=== PATIENT | male | born 1950 | race Caucasian/White ===

== ENCOUNTER → 2016-10-05 | Outpatient (CLI) | payer MEDICARE, OTHER ==
--- NOTE | 2016-10-05 10:39 | CT ---
EXAMINATION TYPE: CT chest w con DATE OF EXAM: 10/05/2016 10:13 AM COMPARISON: NONE HISTORY: Patient having some shortness of breath CT DLP: 153.4 mGycm Automated exposure control for dose reduction was used. CONTRAST: CT scan of the chest is performed with IV Contrast, patient injected with 100 mL of Omnipaque 300. FINDINGS: LUNGS: The lungs are grossly clear, there is no concerning parenchymal mass or nodule identified. T here is no pleural effusion or pneumothorax seen. The tracheobronchial tree is patent. Central bronc hiectatic changes are present. There are increased lung volumes. No endobronchial lesion, pleural or pericardial effusion. MEDIASTINUM: There are no greater than 1 cm hilar or mediastinal lymph nodes. There are coronary mitzy ry calcifications. AORTA: No additional significant abnormality is seen. OTHER: The liver shows low attenuation possibly due to fatty infiltration, small cystic focus at the dome measures less than 1 cm. There is calcification seen in the central right kidney which may be v ascular. There is a cortical cyst in the left mid kidney measuring 2 cm. IMPRESSION: Correlate for COPD. Central bronchiectasis. Coronary artery disease.
== END ==
LOC: RADCTMAIN 09:04
PROVIDERS: ATTEND Family Medicine
DX: J44.9 Chronic obstructive pulmonary disease, unspecified (principal); J47.9 Bronchiectasis, uncomplicated; I25.10 Atherosclerotic heart disease of native coronary artery without angina pectoris
CPT/HCPCS: 71260; Q9967

== ENCOUNTER → 2016-11-01 | Outpatient (CLI) | payer MEDICARE, OTHER ==
[~2016-11-01] MED LIST: REGADENOSON 0.4 MG/5 ML SYRINGE IV ONE
--- NOTE | 2016-11-01 10:56 | EST ---
DATE OF SERVICE: 11/01/2016 AGE: 66Y SEX: M HT: 5'8" WT: lbs. Protocol Karlos: Other: Stage: Dur. of Exercise: *Heart Rate Blood Pressure *Rest: 90 Rest: 138/59 * *Max. Achieved: 111 Maximum BP: 138/60 85% PMHR: 130 100% PMHR: 153 *METS: INDICATIONS: Coronary artery disease. Chest pain. History of hypertension, hypercholesterolemia, history of smoking 1 1/2 pack of cigarettes a day MEDICATIONS: See list. ( ) sinus rhythm, rate of 90 beats per minute. AL interval 0.16, 0.10. Frequent PVCs are noted, poor R wave progression in anteroseptal leads. Utilizing a standard Lexiscan protocol, Lexiscan was given IV push followed by serial EKGs without any chest or pressure or ST segment deviations indicative of ischemia are noted in any of the monitoring 12 leads. IMPRESSION: 1. Baseline rhythm is sinus with frequent PVCs are noted. Poor R wave progression in anteroseptal leads. 2. Negative Lexiscan Cardiolite study. 3. Nuclear scintigrams to follow from radiology department.
--- NOTE | 2016-11-01 12:04 | NM ---
EXAMINATION TYPE: NM stress lexiscan cardiolite DATE OF EXAM: 11/01/2016 10:44 AM COMPARISON: NONE HISTORY: 66 year-old male history of coronary artery disease TECHNIQUE: After the intravenous administration of 10.9 mCi Tc 99m Sestamibi - Cardiolite resting SP ECT images acquired 45 minutes post injection. The patient received 0.4mg Lexiscan, 26.6 mCi Tc 99m Sestamibi - Stress images obtained [address] injection FINDINGS: Review of stress and rest SPECT images demonstrates no distinct perfusion abnormality. There is some prominent adjacent inferior wall GI activity. Gated analysis shows normal wall motion with an estimat ed left ventricular ejection fraction of 58 %. Ejection fraction at rest is low at 39%. TID is calcul ated at 0.84, within normal limits. IMPRESSION: 1. No scintigraphic evidence for reversible ischemia. 2. Note low LVEF of 39% at rest. LVEF on stress is 58%.
== END | disposition home or self-care (01) ==
LOC: RADNMMAIN 10-27 07:50
PROVIDERS: ATTEND Family Medicine
DX: I25.10 Atherosclerotic heart disease of native coronary artery without angina pectoris (principal)
CPT/HCPCS: 93017; 78452; A9500; J2785

== ENCOUNTER → 2016-11-24 | Outpatient (CLI) | payer MEDICARE, OTHER ==
--- NOTE | 2016-11-24 08:43 | US ---
EXAMINATION TYPE: [place] medicare screen for AAA DATE OF EXAM: 11/24/2016 7:54 AM COMPARISON: NONE CLINICAL HISTORY: I25.10 coronary artery disease. HTN, smoker, no hx of AAA EXAM MEASUREMENTS: Abdominal Aorta: Proximal: 1.7 x 2.2 cm Mid: 1.2 x 1.5 cm Distal: 1.2 x 1.5 cm Bifurcation: Right - 0.7 x 1.0 cm Left- 0.4 x 1.0 cm No AAA seen. IMPRESSION: 1. No diagnostic evidence of aneurysm
== END | disposition home or self-care (01) ==
LOC: RADUSWWP 07:18
PROVIDERS: ATTEND Family Medicine
DX: I25.10 Atherosclerotic heart disease of native coronary artery without angina pectoris (principal)
CPT/HCPCS: 76706; 93979

== ENCOUNTER → 2019-03-13 | Outpatient (CLI) | payer MEDICARE, OTHER ==
--- NOTE | 2019-03-14 09:20 | P.ARTDOP ---
Arterial Doppler LOWER EXTREMITY ARTERIAL DOPPLER: DATE OF SERVICE: 03/13/2019 Reason for study: Bilateral foot pain. Doppler waveforms: Multiphasic bilaterally throughout. Pulse volume recording: []. Pressure gradients: None significant. Ankle-brachial indices: 0.97 on the right and 0.99 on the left. Toe pressures: [] on the right, [] on the left Impression: Normal study.
== END | disposition home or self-care (01) ==
LOC: RADUSWWP 09:11
PROVIDERS: ATTEND Family Medicine
DX: I73.9 Peripheral vascular disease, unspecified (principal); Z98.890 Other specified postprocedural states
CPT/HCPCS: 93922

== ENCOUNTER 2019-08-23 08:12 | Day surgery (SDC) | payer MEDICARE, OTHER ==
[2019-08-20 15:20] VITALS: BMI 19.8
[~2019-08-23 08:12] MED LIST changes: +LACTATED RINGERS 1,000 ML IV SCH; +LIDOCAINE 1% 20 ML VIAL (10MG/ML) FOR IV START INTRADERMA PRN; -REGADENOSON 0.4 MG/5 ML SYRINGE IV ONE
[2019-08-23 08:39] VITALS: TEMP 98.5
[2019-08-23] MEDS ORDERED: LIDOCAINE 1% INJ 10MG/ML (20 ML MDV) ONE (09:32)
[2019-08-23] MEDS ORDERED: PROPOFOL 10 MG/ML 20 ML VIAL IV ONE (09:32)
--- NOTE | 2019-08-23 09:35 | P.GSHP ---
History of Present Illness H&P Date: 08/23/19 Chief Complaint: Anemia This a 68-year-old male who presents today for EGD and colonoscopy. Patient has had issues anemia. He denies any obvious GI bleed. Past Medical History Past Medical History: Hyperlipidemia, Hypertension History of Any Multi-Drug Resistant Organisms: None Reported Past Surgical History: No Surgical Hx Reported Additional Past Surgical History / Comment(s): colonoscopy Past Anesthesia/Blood Transfusion Reactions: No Reported Reaction Smoking Status: Current every day smoker - Past Family History Mother Family Medical History: No Reported History Medications and Allergies Home Medications Medication Instructions Recorded Confirmed Type Ferrous Sulfate [Feosol] 325 mg PO DAILY 04/01/16 08/23/19 History Hydrochlorothiazide [Hydrodiuril] 25 mg PO DAILY 08/20/19 08/23/19 History Simvastatin [Zocor] 20 mg PO DAILY 08/20/19 08/23/19 History Allergies Allergy/AdvReac Type Severity Reaction Status Date / Time No Known Allergies Allergy Verified 08/23/19 08:25 Surgical - Exam Vital Signs Temp Pulse Resp BP Pulse Ox 98.5 F 62 16 156/79 96 08/23/19 08:38 08/23/19 08:38 08/23/19 08:38 08/23/19 08:38 08/23/19 08:38 - General well developed, well nourished, no distress - Eyes PERRL - ENT normal pinna - Neck no masses - Respiratory normal expansion - Cardiovascular Rhythm: regular - Abdomen Abdomen: soft, non tender Assessment and Plan Assessment: Anemia. We will perform EGD and colonoscopy.
--- NOTE | 2019-08-23 09:52 | P.OP ---
Date of Procedure: 08/23/19 Preoperative Diagnosis: Anemia Postoperative Diagnosis: Antral gastritis Mild esophagitis Procedure(s) Performed: EGD Colonoscopy Anesthesia: MAC Surgeon: Francis Mcghee Pathology: other (Antrum, esophagus) Condition: stable Disposition: PACU Description of Procedure: The patient's placed on the endoscopy table lateral position. He received IV sedation. The gastroscope placed oropharynx and passed in the esophagus into the stomach. Scope was then placed through the pylorus. The first and second portion duodenum appeared normal. Scope was then brought back the antrum and this was moderately inflamed. A biopsies performed. Scope was unretroflexed and remainder stomach appeared normal. There is no significant hiatal hernia. The GE junction was at 47 is. The distal esophagus appeared mildly inflamed a biopsies performed. The proximal esophagus appeared normal. The scope was then withdrawn from patient. Next digital rectal exam was performed. The prostate was symmetrical without nodules. The flexible colonoscope was then placed patient anus and passed rotator entire colon. The ileocecal valve was visually is. The cecum, ascending and transverse colon appeared normal. The descending and sigmoid colon appeared normal. Scope was then brought back the rectum and this appeared normal. Scope was withdrawn for patient. There is no evidence of any active bleeding. He was present in the patient's anemia was due to his gastritis.
[2019-08-23 10:15] VITALS: BP 151/76; PULSE 85; RESP 20
== END 2019-08-23 10:41 | disposition home or self-care (01) ==
LOC: ORWHC2ENDO 08:12
PROVIDERS: ATTEND Surgery
DX: K20.9 Esophagitis, unspecified (principal); K29.50 Unspecified chronic gastritis without bleeding; D64.9 Anemia, unspecified; E78.5 Hyperlipidemia, unspecified; I10 Essential (primary) hypertension; F17.200 Nicotine dependence, unspecified, uncomplicated; Z97.2 Presence of dental prosthetic device (complete) (partial); Z79.899 Other long term (current) drug therapy
CPT/HCPCS: 88305; 45378; 43239; J2001; J2704

== ENCOUNTER 2020-03-06 11:13 | Inpatient (IN) | payer MEDICARE, OTHER ==
--- NOTE | 2020-03-06 11:19 | ED ---
General Adult HPI - General Stated complaint: lt leg pain Time Seen by Provider: 03/06/20 11:15 Source: patient, EMS, RN notes reviewed Mode of arrival: EMS Limitations: no limitations - History of Present Illness Initial comments: This a 69-year-old male presents emergency department via EMS chief complaints severe left groin pain. Patient states that the pain has been ongoing but has increased last 1-2 days. Patient was seen by PCP yesterday. Patient states she has some mild abdominal pain. Patient denies any fevers or chills. Patient has known vascular disease. Patient also states that he does drink alcohol on a regular basis and is a heavy smoker. Patient denies any blood thinners. Patient's PCP did call stating that he had some liver function abnormality's. Patient has no history of this. - Related Data Home Medications Medication Instructions Recorded Confirmed Ferrous Sulfate [Feosol] 325 mg PO DAILY 04/01/16 03/06/20 Simvastatin [Zocor] 20 mg PO DAILY 08/20/19 03/06/20 Gabapentin [Neurontin] 800 mg PO TID 03/06/20 03/06/20 amLODIPine [Norvasc] 10 mg PO DAILY 03/06/20 03/06/20 Allergies Allergy/AdvReac Type Severity Reaction Status Date / Time No Known Allergies Allergy Verified 03/06/20 12:49 Review of Systems ROS Statement: Those systems with pertinent positive or pertinent negative responses have been documented in the HPI. ROS Other: All systems not noted in ROS Statement are negative. Past Medical History Past Medical History: Hyperlipidemia, Hypertension History of Any Multi-Drug Resistant Organisms: None Reported Past Surgical History: No Surgical Hx Reported Additional Past Surgical History / Comment(s): colonoscopy Past Anesthesia/Blood Transfusion Reactions: No Reported Reaction Past Psychological History: No Psychological Hx Reported Past Alcohol Use History: Daily Additional Past Alcohol Use History / Comment(s): smoker for 50 years 1ppd. 2 beers a day Past Drug Use History: None Reported - Past Family History Mother Family Medical History: No Reported History General Exam General appearance: alert, in distress Head exam: Present: atraumatic, normocephalic, normal inspection Eye exam: Present: normal appearance, PERRL, EOMI. Absent: scleral icterus, conjunctival injection, periorbital swelling Respiratory exam: Present: wheezes, decreased breath sounds. Absent: normal lung sounds bilaterally, respiratory distress, rales, rhonchi, stridor Cardiovascular Exam: Present: normal rhythm, tachycardia, normal heart sounds. Absent: systolic murmur, diastolic murmur, rubs, gallop, clicks GI/Abdominal exam: Present: soft, tenderness (Mild), normal bowel sounds. Absent: distended, guarding, rebound, rigid Extremities exam: Present: other (No palpable pulse at left popliteal, left posterior tibialis, left dorsal PE hours, left leg is cool compared to right) Neurological exam: Present: alert, oriented X3 Skin exam: Present: other (Discoloration noted to the left lower extremity) Course Vital Signs 03/06/20 03/06/20 03/06/20 11:17 11:58 12:15 Temperature 96.9 F L Pulse Rate 125 H 117 H 116 H Respiratory 24 22 20 Rate Blood Pressure 141/80 147/59 147/79 O2 Sat by Pulse 100 100 98 Oximetry - Reevaluation(s) Reevaluation #1: 03/06/20 13:01 Vascular was contacted after initial exam, patient was evaluated in the emergency department by vascular nurse practitioner Gilberto. Patient will be admitted for angiogram as patient has poor kidney function now allowing for CT. They did recommend NORBERTO ultrasound. This was ordered. Medical Decision Making - Medical Decision Making 69-year-old male presented for left leg pain. Patient's found to be in acute renal failure, acute liver failure with a left lower extremity arterial occlusion. Patient will be admitted for vascular surgery, patient meds ICU case discussed with furnace room supervisor. Patient does have metabolic acidosis related to dehydration, arterial occlusion, acute renal failure. Patient was given IV fluids. - Lab Data Result diagrams: 03/06/20 11:38 03/06/20 11:38 Lab Results 03/06/20 03/06/20 03/06/20 Range/Units 11:38 11:38 11:38 WBC 9.9 (3.8-10.6) k/uL RBC 4.77 (4.30-5.90) m/uL Hgb 16.4 (13.0-17.5) gm/dL Hct 53.5 H (39.0-53.0) % MCV 112.2 H (80.0-100.0) fL MCH 34.3 (25.0-35.0) pg MCHC 30.6 L (31.0-37.0) g/dL RDW 14.1 (11.5-15.5) % Hypochromasia Marked Macrocytosis Marked A PT 47.2 H (9.0-12.0) sec INR 4.7 H (<1.2) APTT 32.3 H (22.0-30.0) sec Sodium 131 L (137-145) mmol/L Potassium 4.9 (3.5-5.1) mmol/L Chloride 89 L (98-107) mmol/L Carbon Dioxide 9 L* (22-30) mmol/L Anion Gap 33 mmol/L BUN 16 (9-20) mg/dL Creatinine 2.21 H (0.66-1.25) mg/dL Est GFR (CKD-EPI)AfAm 34 (>60 ml/min/1.73 sqM) Est GFR (CKD-EPI)NonAf 29 (>60 ml/min/1.73 sqM) Plasma Lactic Acid Loco (0.7-2.0) mmol/L Calcium 9.1 (8.4-10.2) mg/dL Magnesium 2.6 H (1.6-2.3) mg/dL Total Bilirubin 7.4 H (0.2-1.3) mg/dL Alkaline Phosphatase 126 (38-126) U/L Creatine Kinase 365 H (55-170) U/L Troponin I (0.000-0.034) ng/mL Total Protein 7.9 (6.3-8.2) g/dL Albumin 4.6 (3.5-5.0) g/dL Amylase 195 H (30-110) U/L Lipase 1213 H (23-300) U/L Blood Type Blood Type Recheck Bld Type Recheck Status Antibody Screen Spec Expiration Date 03/06/20 03/06/20 03/06/20 Range/Units 11:38 11:38 11:38 WBC (3.8-10.6) k/uL RBC (4.30-5.90) m/uL Hgb (13.0-17.5) gm/dL Hct (39.0-53.0) % MCV (80.0-100.0) fL MCH (25.0-35.0) pg MCHC (31.0-37.0) g/dL RDW (11.5-15.5) % Hypochromasia Macrocytosis PT (9.0-12.0) sec INR (<1.2) APTT (22.0-30.0) sec Sodium (137-145) mmol/L Potassium (3.5-5.1) mmol/L Chloride (98-107) mmol/L Carbon Dioxide (22-30) mmol/L Anion Gap mmol/L BUN (9-20) mg/dL Creatinine (0.66-1.25) mg/dL Est GFR (CKD-EPI)AfAm (>60 ml/min/1.73 sqM) Est GFR (CKD-EPI)NonAf (>60 ml/min/1.73 sqM) Plasma Lactic Acid Loco 15.3 H* (0.7-2.0) mmol/L Calcium (8.4-10.2) mg/dL Magnesium (1.6-2.3) mg/dL Total Bilirubin (0.2-1.3) mg/dL Alkaline Phosphatase (38-126) U/L Creatine Kinase (55-170) U/L Troponin I 0.022 (0.000-0.034) ng/mL Total Protein (6.3-8.2) g/dL Albumin (3.5-5.0) g/dL Amylase (30-110) U/L Lipase (23-300) U/L Blood Type O Positive Blood Type Recheck No Previous Record Bld Type Recheck Status CABO Indicated Antibody Screen NEGATIVE Spec Expiration Date 03/09/2020 - 2337 Critical Care Time Critical Care Time: Yes Total Critical Care Time: 35 Critical Care Time: Total 35 minutes of critical care time were used initially evaluated patient, reviewed past medical history, review old imaging patient found to have left arterial occlusion in which patient's case discussed with vascular. Patient be taken for angiogram and possible procedure. Patient also found to have acute liver failure and acute renal failure consults to [facility]. She was started on heparin by vascular. Patient does have acute pancreatitis related to his alcohol abuse. Patient is hydrated well, started on CIWA protocol, Ativan protocol. Patient's case discussed with Dr. Mazariegos, Dr. Mills Disposition Clinical Impression: Arterial occlusion, lower extremity, Acute liver failure, Metabolic acidosis, Acute renal failure, Acute pancreatitis Disposition: ADMITTED IP TO THIS HOSP Condition: Serious Referrals: Mani Fitch MD [Primary Care Provider] - 1-2 days
[2020-03-06] MEDS ORDERED: MORPHINE SULFATE 4 MG/ML SYRINGE IV STA (11:31)
[2020-03-06] MEDS ORDERED: SODIUM CHLORIDE 0.9% 1,000 ML IV STA (11:31)
[2020-03-06] MEDS ORDERED: ONDANSETRON 4 MG/2 ML VIAL IVP STA (11:32)
[2020-03-06] MEDS ORDERED: LORazepam 2 MG/ML INJ IV STA (11:40)
[2020-03-06] MEDS ORDERED: SODIUM CHLORIDE 0.9% 1,000 ML IV ONE (11:41)
[2020-03-06 12:14] LABS: INR 4.7 (<1.2); Partial Thromboplastin Time 32.3 sec (22.0-30.0); Prothrombin Time 47.2 sec (9.0-12.0)
[2020-03-06 12:22] LABS: African American GFR (CKD) 34 (>60 ml/min/1.73 sqM); Albumin 4.6 g/dL (3.5-5.0); Alkaline Phosphatase 126 U/L (38-126); Amylase 195 U/L (30-110); Blood Urea Nitrogen 16 mg/dL (9-20); Calcium 9.1 mg/dL (8.4-10.2); Chloride 89 mmol/L (98-107); Creatine Kinase 365 U/L (55-170); Magnesium 2.6 mg/dL (1.6-2.3); Non-African American GFR(CKD) 29 (>60 ml/min/1.73 sqM); Sodium 131 mmol/L (137-145); Total Bilirubin 7.4 mg/dL (0.2-1.3); Total Protein 7.9 g/dL (6.3-8.2)
[2020-03-06 12:27] LABS: Anion Gap 33 mmol/L
[2020-03-06 12:28] LABS: Carbon Dioxide 9 mmol/L (22-30)
[2020-03-06 12:29] LABS: Potassium 4.9 mmol/L (3.5-5.1)
[2020-03-06 12:34] LABS: HCT 53.5 % (39.0-53.0); HGB 16.4 gm/dL (13.0-17.5); Hypochromasia Marked; MCH 34.3 pg (25.0-35.0); MCHC 30.6 g/dL (31.0-37.0); MCV 112.2 fL (80.0-100.0); Macrocytosis Marked; Mean Platelet Volume 11.4; RBC 4.77 m/uL (4.30-5.90); RDW 14.1 % (11.5-15.5); WBC 9.9 k/uL (3.8-10.6)
[2020-03-06] MEDS ORDERED: HEPARIN SODIUM,PORCINE 10,000 UNIT/ML 1 ML VIAL IV ONE (12:37)
[2020-03-06] MEDS ORDERED: HEPARIN SODIUM,PORCINE 5,000 UNIT/ML 1 ML VIAL IV PRN (12:37)
[2020-03-06] MEDS ORDERED: ONDANSETRON 4 MG/2 ML VIAL IVP PRN (12:40)
[2020-03-06] MEDS ORDERED: MORPHINE SULFATE 4 MG/ML SYRINGE IV PRN (12:40)
[2020-03-06] MEDS ORDERED: NALOXONE 0.4 MG/ML 1 ML VIAL IV PRN (12:40)
[2020-03-06] MEDS ORDERED: LORazepam 2 MG/ML INJ IV PRN ×3 (12:43)
[2020-03-06] MEDS ORDERED: HEPARIN SOD,PORK IN 0.45% NACL 25,000 UNIT in 0.45% NACL 1 250ML.BAG IV SCH (12:45)
[2020-03-06] MEDS: SODIUM CHLORIDE 0.9% 1,000 ML IV SCH ×2 (12:56→21:59)
[2020-03-06 13:14] LABS: Appearance,Urine Cloudy (Clear); Bacteria,Urine Rare /hpf; Bilirubin,Urine 1+ (Negative); Blood,Urine Moderate (Negative); Cellular Casts,Urine 8 /lpf (0); Color,Urine Dark Brown; Glucose,Urine (UA) Negative (Negative); Hyaline Casts,Urine 17 /lpf (0-2); Ketones,Urine Trace (Negative); Leukocyte Esterase,Urine Negative (Negative); Mucus,Urine Rare /hpf; Nitrite,Urine Negative (Negative); PH, Urine 5.5 (5.0-8.0); Protein,Urine 2+ (Negative); RBC,Urine 2 /hpf (0-5); Specific Gravity,Urine 1.015 (1.001-1.035); Squamous Epithelial Cell,Urine 2 /hpf (0-4); Urobilinogen,Urine <2.0 mg/dL (<2.0); WBC,Urine 36 /hpf (0-5)
[2020-03-06 13:16] LABS: Band Neutrophils % 1 %; Myelocytes % 1 %; Neutrophils % (M) 92 %; Nucleated Red Blood Cells 0 /100 WBC (0-0); Total Cells Counted 200
[2020-03-06 13:17] LABS: Platelet Count 69 k/uL (150-450); Toxic Granulation Present
[2020-03-06] MEDS ORDERED: DEXTROSE 50% SYRINGE 50 ML IVP STA (13:22)
[2020-03-06 13:25] LABS: AST >15000 U/L (17-59)
[2020-03-06 13:26] LABS: ALT 6746 U/L (4-49)
[2020-03-06 13:43] LABS: Glucose,Whole Blood 126 mg/dL (75-99)
[2020-03-06 14:06] LABS: Glucose 42 mg/dL (74-99)
--- NOTE | 2020-03-06 15:26 | P.GSCN ---
History of Present Illness Consult date: 03/06/20 Reason for Consult: Lateral lower extremity pain, cold left lower extremity History of present illness: This is a 69-year-old male with a history of hyperlipidemia, hypertension, alcohol abuse who states he drinks a 30 pack a week and has been drinking for greater than 30 years, and is a pack-a-day smoker for greater than 50 years. The patient states he has been having bilateral lower extremity pain for at least the last year, however starting today he had worse pain in the left lower extremity. States that he saw Dr. Fitch in the office yesterday. In February 2019 he had a arterial study of the bilateral lower extremity showing moderate left fem-pop disease with possible iliac component. The patient denies any shortness of breath or chest pain. He is able to ambulate, however does have pain with ambulation. He also has multiple scratches and scabbing on bilateral lower extremities left greater than right. Patient's friend at the bedside states that he itches his legs a lot, which causes the scabbing. The patient is alert and answers his questions appropriately, he is able to follow commands, states he knows he is at [facility], states his birthday and name, however was confused on the current year when asked. Admission labs show WBC 9.9, hemoglobin 16.4, hematocrit 53.5, platelets 69,000 PT 47.2, INR 4.7, sodium 131, potassium 4.9, chloride 89, carbon dioxide 9, BUNs 16, creatinine 2.21, glucose 42, plasma lactic acid 15.3 magnesium 2.6, total bili 7.4, alk phos 126, AST greater than 15,000, ALTs 6746, ammonia 47, creatinine kidneys 365, amylase 195, lipase 1213. Review of Systems A 14 point review of system was completed all pertinent positives and negatives as stated in the HPI. Past Medical History Past Medical History: GERD/Reflux, Hyperlipidemia, Hypertension Additional Past Medical History / Comment(s): Bilateral leg pain/especially L leg for years, anemia History of Any Multi-Drug Resistant Organisms: None Reported Past Surgical History: No Surgical Hx Reported Additional Past Surgical History / Comment(s): EGD, colonoscopy, bilateral cataract removals. Past Anesthesia/Blood Transfusion Reactions: No Reported Reaction Smoking Status: Current every day smoker - Past Family History Mother Family Medical History: No Reported History Additional Family Medical History / Comment(s): Mother was healthy and lived to almost 90yrs of age. She has 16 children. Father Additional Family Medical History / Comment(s): Father had "heart" problems and lived to be 80. Medications and Allergies Home Medications Medication Instructions Recorded Confirmed Type Ferrous Sulfate [Feosol] 325 mg PO DAILY 04/01/16 03/06/20 History Simvastatin [Zocor] 20 mg PO DAILY 08/20/19 03/06/20 History Gabapentin [Neurontin] 800 mg PO TID 03/06/20 03/06/20 History amLODIPine [Norvasc] 10 mg PO DAILY 03/06/20 03/06/20 History Allergies Allergy/AdvReac Type Severity Reaction Status Date / Time No Known Allergies Allergy Verified 03/06/20 12:49 Surgical - Exam Vital Signs Temp Pulse Resp BP Pulse Ox 96.9 F L 125 H 24 141/80 100 03/06/20 11:17 03/06/20 11:17 03/06/20 11:17 03/06/20 11:17 03/06/20 11:17 General appearance: The patient is alert, oriented, in no acute distress. HET: Head is normocephalic and atraumatic. Pupils are equal and reactive. Oropharynx is clear without lesions. Neck: Supple without lymphadenopathy. Trachea midline. Heart: S1 S2. Regular rate and rhythm, tachycardic HR in 120s. Lungs: No crackles or wheezes are heard. Patient is tachypnic. Abdomen: Soft, nontender, nondistended with bowel sounds. Extremities: Left lower extremity cold to touch, pale, with decreased capillary refill. Unable to palpate femoral, popliteal, PT, or DP. Left femoral with positive Doppler signal, left popliteal, PT, and DP unable to obtain Doppler signal. Multiple scratches scabs on left michelle. Right lower extremity warm to touch, good capillary refill, palpable femoral pulse. Right popliteal, PT and DP Doppler signal. Radial 2/4 bilaterally. Patient is unable to wiggle his left toes, minimally moves his left foot, however is able to pull up and bend at his knee. Neurological: No focal deficits. Results - Labs 03/06/20 11:38 03/06/20 11:38 Abnormal Lab Results - Last 24 Hours (Table) 03/06/20 03/06/20 03/06/20 Range/Units 11:38 11:38 11:38 Hct 53.5 H (39.0-53.0) % MCV 112.2 H (80.0-100.0) fL MCHC 30.6 L (31.0-37.0) g/dL Plt Count 69 L (150-450) k/uL Neutrophils # (Manual) 9.20 H (1.3-7.7) k/uL Lymphocytes # (Manual) 0.40 L (1.0-4.8) k/uL Myelocytes # (Manual) 0.10 H (0) k/uL Macrocytosis Marked A PT 47.2 H (9.0-12.0) sec INR 4.7 H (<1.2) APTT 32.3 H (22.0-30.0) sec Sodium (137-145) mmol/L Chloride (98-107) mmol/L Carbon Dioxide (22-30) mmol/L Creatinine (0.66-1.25) mg/dL Glucose (74-99) mg/dL POC Glucose (mg/dL) (75-99) mg/dL Plasma Lactic Acid Loco (0.7-2.0) mmol/L Magnesium (1.6-2.3) mg/dL Total Bilirubin (0.2-1.3) mg/dL AST (17-59) U/L ALT (4-49) U/L Ammonia (<30) umol/L Creatine Kinase (55-170) U/L Amylase (30-110) U/L Lipase (23-300) U/L Urine Protein 2+ H (Negative) Urine Ketones Trace H (Negative) Urine Blood Moderate H (Negative) Urine Bilirubin 1+ H (Negative) Urine WBC 36 H (0-5) /hpf Urine WBC Clumps Moderate H (None) /hpf Urine Bacteria Rare H (None) /hpf Hyaline Casts 17 H (0-2) /lpf Urine Mucus Rare H (None) /hpf 03/06/20 03/06/20 03/06/20 Range/Units 11:38 11:38 13:29 Hct (39.0-53.0) % MCV (80.0-100.0) fL MCHC (31.0-37.0) g/dL Plt Count (150-450) k/uL Neutrophils # (Manual) (1.3-7.7) k/uL Lymphocytes # (Manual) (1.0-4.8) k/uL Myelocytes # (Manual) (0) k/uL Macrocytosis PT (9.0-12.0) sec INR (<1.2) APTT (22.0-30.0) sec Sodium 131 L (137-145) mmol/L Chloride 89 L (98-107) mmol/L Carbon Dioxide 9 L* (22-30) mmol/L Creatinine 2.21 H (0.66-1.25) mg/dL Glucose 42 L* (74-99) mg/dL POC Glucose (mg/dL) (75-99) mg/dL Plasma Lactic Acid Loco 15.3 H* (0.7-2.0) mmol/L Magnesium 2.6 H (1.6-2.3) mg/dL Total Bilirubin 7.4 H (0.2-1.3) mg/dL AST >14410 H (17-59) U/L ALT 6746 H (4-49) U/L Ammonia 47 H (<30) umol/L Creatine Kinase 365 H (55-170) U/L Amylase 195 H (30-110) U/L Lipase 1213 H (23-300) U/L Urine Protein (Negative) Urine Ketones (Negative) Urine Blood (Negative) Urine Bilirubin (Negative) Urine WBC (0-5) /hpf Urine WBC Clumps (None) /hpf Urine Bacteria (None) /hpf Hyaline Casts (0-2) /lpf Urine Mucus (None) /hpf 03/06/20 Range/Units 13:41 Hct (39.0-53.0) % MCV (80.0-100.0) fL MCHC (31.0-37.0) g/dL Plt Count (150-450) k/uL Neutrophils # (Manual) (1.3-7.7) k/uL Lymphocytes # (Manual) (1.0-4.8) k/uL Myelocytes # (Manual) (0) k/uL Macrocytosis PT (9.0-12.0) sec INR (<1.2) APTT (22.0-30.0) sec Sodium (137-145) mmol/L Chloride (98-107) mmol/L Carbon Dioxide (22-30) mmol/L Creatinine (0.66-1.25) mg/dL Glucose (74-99) mg/dL POC Glucose (mg/dL) 126 H (75-99) mg/dL Plasma Lactic Acid Loco (0.7-2.0) mmol/L Magnesium (1.6-2.3) mg/dL Total Bilirubin (0.2-1.3) mg/dL AST (17-59) U/L ALT (4-49) U/L Ammonia (<30) umol/L Creatine Kinase (55-170) U/L Amylase (30-110) U/L Lipase (23-300) U/L Urine Protein (Negative) Urine Ketones (Negative) Urine Blood (Negative) Urine Bilirubin (Negative) Urine WBC (0-5) /hpf Urine WBC Clumps (None) /hpf Urine Bacteria (None) /hpf Hyaline Casts (0-2) /lpf Urine Mucus (None) /hpf Diabetes panel 03/06/20 Range/Units 11:38 Sodium 131 L (137-145) mmol/L Potassium 4.9 (3.5-5.1) mmol/L Chloride 89 L (98-107) mmol/L Carbon Dioxide 9 L* (22-30) mmol/L BUN 16 (9-20) mg/dL Creatinine 2.21 H (0.66-1.25) mg/dL Glucose 42 L* (74-99) mg/dL Calcium 9.1 (8.4-10.2) mg/dL AST >03493 H (17-59) U/L ALT 6746 H (4-49) U/L Alkaline Phosphatase 126 (38-126) U/L Total Protein 7.9 (6.3-8.2) g/dL Albumin 4.6 (3.5-5.0) g/dL Calcium panel 03/06/20 Range/Units 11:38 Calcium 9.1 (8.4-10.2) mg/dL Albumin 4.6 (3.5-5.0) g/dL Pituitary panel 03/06/20 Range/Units 11:38 Sodium 131 L (137-145) mmol/L Potassium 4.9 (3.5-5.1) mmol/L Chloride 89 L (98-107) mmol/L Carbon Dioxide 9 L* (22-30) mmol/L BUN 16 (9-20) mg/dL Creatinine 2.21 H (0.66-1.25) mg/dL Glucose 42 L* (74-99) mg/dL Calcium 9.1 (8.4-10.2) mg/dL Adrenal panel 03/06/20 Range/Units 11:38 Sodium 131 L (137-145) mmol/L Potassium 4.9 (3.5-5.1) mmol/L Chloride 89 L (98-107) mmol/L Carbon Dioxide 9 L* (22-30) mmol/L BUN 16 (9-20) mg/dL Creatinine 2.21 H (0.66-1.25) mg/dL Glucose 42 L* (74-99) mg/dL Calcium 9.1 (8.4-10.2) mg/dL Total Bilirubin 7.4 H (0.2-1.3) mg/dL AST >87013 H (17-59) U/L ALT 6746 H (4-49) U/L Alkaline Phosphatase 126 (38-126) U/L Total Protein 7.9 (6.3-8.2) g/dL Albumin 4.6 (3.5-5.0) g/dL Assessment and Plan Assessment: 1. Cold leg 2. Peripheral arterial disease 3. Metabolic acidosis 4. Hypertension 5. Hyperlipidemia 6. ETOH use 7. Tobacco abuse Plan: The patient was evaluated and discussed with Dr. Braga and Dr. Copeland. Patient is to be started on a heparin drip. Labs are reviewed, fresh frozen plasma 2 units was ordered. Patient is scheduled to go to the operating room for a left lower extremity open thrombectomy and intraoperative angiogram with possible fasciotomy. Recommend admission to the ICU. Further recommendations to follow. Thank you for this consultation allowing us to take part in the plan of care of your patient during his hospital stay. The above dictated assessment and findings were discussed with Dr. Copeland. The impression and plan of care have been directed as dictated.
[2020-03-06 16:01] LABS: Glucose,Whole Blood 126 mg/dL (75-99)
[2020-03-06] MEDS ORDERED: MIDAZOLAM 2 MG/2 ML VIAL ONE (16:08)
[2020-03-06] MEDS ORDERED: PROTAMINE SULFATE 10 MG/ML 5 ML VIAL IV ONE (16:08)
[2020-03-06] MEDS ORDERED: SUCCINYLCHOLINE CHLORIDE 100 MG/5 ML SYR IV ONE (16:08)
[2020-03-06] MEDS ORDERED: ALBUMIN HUMAN 5% (25gm) 500 ML VIAL IVPB ONE (16:08)
[2020-03-06] MEDS ORDERED: ROCURONIUM BROMIDE 10 MG/ML 5 ML VIAL IV ONE (16:08)
[2020-03-06] MEDS ORDERED: HEPARIN SODIUM,PORCINE 5,000 UNIT/ML 1 ML VIAL ONE (16:08)
[2020-03-06] MEDS ORDERED: fentaNYL (PF) 50 MCG/ML 2 ML AMP ONE (16:08)
[2020-03-06] MEDS ORDERED: PHENYLEPHRINE-0.9% NACL SYG 1 MG/10 ML SYRINGE ONE (16:08)
[2020-03-06] MEDS ORDERED: ETOMIDATE 2 MG/ML 10 ML VIAL ONE (16:08)
[2020-03-06] MEDS ORDERED: LIDOCAINE 1% INJ 10MG/ML (20 ML MDV) ONE (16:08)
[2020-03-06] MEDS ORDERED: SODIUM CHLORIDE 0.9% 100 ML with ceFAZolin 2,000 MG IV ONE ×2 (16:44)
[2020-03-06 16:45] LABS: Glucose,Whole Blood 134 mg/dL (75-99)
[2020-03-06] MEDS ORDERED: ceFAZolin 4,000 MG in SODIUM CHLORIDE 0.9% 1,000 ML IRRIGATION ONE (17:08)
[2020-03-06] MEDS ORDERED: HEPARIN SODIUM,PORCINE 10,000 UNIT in SODIUM CHLORIDE 0.9% 1,000 ML IRRIGATION ONE (17:10)
--- NOTE | 2020-03-06 17:11 | P.CNPUL ---
History of Present Illness Consult date: 03/06/20 Reason for consult: dyspnea Chief complaint: Pain in the left leg History of present illness: This is a 72-year-old male came into the hospital with left leg pain and started from the groin, patient has been having ongoing pain for the last 2 days, also have pale discoloration patient has a significant history of alcohol consumption as well as vascular disease he is a resident [facility], he is accompanied by his brother data predominantly has been obtained from him, Review of the data revealed that he has history of hyperlipidemia, hypertension, alcohol abuse who states he drinks a 30 pack a week and has been drinking for greater than 30 years, and is a pack-a-day smoker for greater than 50 years. The patient states he has been having bilateral lower extremity pain for at least the last year, however starting today he had worse pain in the left lower extremity. States that he saw Dr. Fitch in the office yesterday. In February 2019 he had a arterial study of the bilateral lower extremity showing moderate left fem-pop disease with possible iliac component. The patient denies any shortness of breath or chest pain. He is able to ambulate, however does have pain with ambulation. He also has multiple scratches and scabbing on bilateral lower extremities left greater than right. Patient's friend at the bedside states that he itches his legs a lot, which causes the scabbing. The patient is alert and answers his questions appropriately, he is able to follow commands, states he knows he is at [facility], states his birthday and name, however was confused on the current year when asked. Admission labs show WBC 9.9, hemoglobin 16.4, hematocrit 53.5, platelets 69,000 PT 47.2, INR 4.7, sodium 131, potassium 4.9, chloride 89, carbon dioxide 9, BUNs 16, creatinine 2.21, glucose 42, plasma lactic acid 15.3 magnesium 2.6, total bili 7.4, alk phos 126, AST greater than 15,000, ALTs 6746, ammonia 47, creatinine kidneys 365, amylase 195, lipase 1213. Vascular surgery have evaluated this patient, patient is being taken to the OR with FFP risk have been discussed with the patient's brother and they appeared to understand as mentioned by vascular surgery Review of Systems All systems: negative Past Medical History Past Medical History: GERD/Reflux, Hyperlipidemia, Hypertension Additional Past Medical History / Comment(s): Bilateral leg pain/especially L leg for years, anemia History of Any Multi-Drug Resistant Organisms: None Reported Past Surgical History: No Surgical Hx Reported Additional Past Surgical History / Comment(s): EGD, colonoscopy, bilateral cataract removals. Past Anesthesia/Blood Transfusion Reactions: No Reported Reaction Smoking Status: Current every day smoker - Past Family History Mother Family Medical History: No Reported History Additional Family Medical History / Comment(s): Mother was healthy and lived to almost 90yrs of age. She has 16 children. Father Additional Family Medical History / Comment(s): Father had "heart" problems and lived to be 80. Medications and Allergies Home Medications Medication Instructions Recorded Confirmed Type Ferrous Sulfate [Feosol] 325 mg PO DAILY 04/01/16 03/06/20 History Simvastatin [Zocor] 20 mg PO DAILY 08/20/19 03/06/20 History Gabapentin [Neurontin] 800 mg PO TID 03/06/20 03/06/20 History amLODIPine [Norvasc] 10 mg PO DAILY 03/06/20 03/06/20 History Allergies Allergy/AdvReac Type Severity Reaction Status Date / Time No Known Allergies Allergy Verified 03/06/20 12:49 Physical Exam Vitals: Vital Signs Temp Pulse Resp BP Pulse Ox 03/06/20 15:59 90.3 F L 112 H 22 99 03/06/20 14:45 94.3 F L 115 H 20 154/78 98 03/06/20 14:15 94.1 F L 90 18 154/92 98 03/06/20 14:05 93.9 F L 114 H 28 H 121/54 97 03/06/20 13:36 112 H 28 H 141/49 95 03/06/20 12:15 116 H 20 147/79 98 03/06/20 11:58 117 H 22 147/59 100 03/06/20 11:17 96.9 F L 125 H 24 141/80 100 Intake and Output 03/06/20 03/06/20 03/06/20 06:59 14:59 22:59 Intake Total 0 341 Balance 0 341 Intake: Blood Product 0 341 Ffp 24 Cpd Unit 0 [id number] Ffp 24 Cpd Unit 341 [id number] Platelet Irr Pheresis 0 Acda1 Unit [id number] Other: Weight 54.431 kg - Constitutional General appearance: disheveled, mild distress, thin - EENT Eyes: EOMI, PERRLA ENT: hard of hearing Ears: bilateral: normal - Neck Carotids: bilateral: upstroke normal Thyroid: bilateral: normal size - Respiratory Respiratory: bilateral: CTA - Cardiovascular Rhythm: regular Heart sounds: normal: S1, S2 - Gastrointestinal General gastrointestinal: hyperactive bowel sounds - Neurologic Neurologic: CNII-XII intact - Musculoskeletal Musculoskeletal: generalized weakness Pale left lower extremity with negative dopplerable pulses involving dorsalis pedis and posterior tibial Results - Laboratory Findings CBC and BMP: 03/06/20 11:38 03/06/20 11:38 PT/INR, D-dimer PT 47.2 sec (9.0-12.0) H 03/06/20 11:38 INR 4.7 (<1.2) H 03/06/20 11:38 Abnormal lab findings: Abnormal Labs 03/06/20 03/06/20 03/06/20 11:38 11:38 11:38 Hct 53.5 H MCV 112.2 H MCHC 30.6 L Plt Count 69 L Neutrophils # (Manual) 9.20 H Lymphocytes # (Manual) 0.40 L Myelocytes # (Manual) 0.10 H Macrocytosis Marked A PT 47.2 H INR 4.7 H APTT 32.3 H Sodium Chloride Carbon Dioxide Creatinine Glucose POC Glucose (mg/dL) Plasma Lactic Acid Loco Magnesium Total Bilirubin AST ALT Ammonia Creatine Kinase Amylase Lipase Urine Protein 2+ H Urine Ketones Trace H Urine Blood Moderate H Urine Bilirubin 1+ H Urine WBC 36 H Urine WBC Clumps Moderate H Urine Bacteria Rare H Hyaline Casts 17 H Urine Mucus Rare H 03/06/20 03/06/20 03/06/20 11:38 11:38 13:29 Hct MCV MCHC Plt Count Neutrophils # (Manual) Lymphocytes # (Manual) Myelocytes # (Manual) Macrocytosis PT INR APTT Sodium 131 L Chloride 89 L Carbon Dioxide 9 L* Creatinine 2.21 H Glucose 42 L* POC Glucose (mg/dL) Plasma Lactic Acid Loco 15.3 H* Magnesium 2.6 H Total Bilirubin 7.4 H AST >76245 H ALT 6746 H Ammonia 47 H Creatine Kinase 365 H Amylase 195 H Lipase 1213 H Urine Protein Urine Ketones Urine Blood Urine Bilirubin Urine WBC Urine WBC Clumps Urine Bacteria Hyaline Casts Urine Mucus 03/06/20 03/06/20 03/06/20 13:41 15:32 15:59 Hct MCV MCHC Plt Count Neutrophils # (Manual) Lymphocytes # (Manual) Myelocytes # (Manual) Macrocytosis PT INR APTT Sodium Chloride Carbon Dioxide Creatinine Glucose POC Glucose (mg/dL) 126 H 126 H Plasma Lactic Acid Loco 16.1 H* Magnesium Total Bilirubin AST ALT Ammonia Creatine Kinase Amylase Lipase Urine Protein Urine Ketones Urine Blood Urine Bilirubin Urine WBC Urine WBC Clumps Urine Bacteria Hyaline Casts Urine Mucus 03/06/20 16:43 Hct MCV MCHC Plt Count Neutrophils # (Manual) Lymphocytes # (Manual) Myelocytes # (Manual) Macrocytosis PT INR APTT Sodium Chloride Carbon Dioxide Creatinine Glucose POC Glucose (mg/dL) 134 H Plasma Lactic Acid Loco Magnesium Total Bilirubin AST ALT Ammonia Creatine Kinase Amylase Lipase Urine Protein Urine Ketones Urine Blood Urine Bilirubin Urine WBC Urine WBC Clumps Urine Bacteria Hyaline Casts Urine Mucus Assessment and Plan Assessment: Severe metabolic acidosis due to ischemic leg Acute kidney injury Ischemic left lower extremity Peripheral vascular disease Cirrhosis of the liver Lactic acidosis Extensive history of alcohol consumption Plan: Proceed with surgery as planned risk alternative have been discussed with the patient by vascular surgery, patient likely will be kept on ventilator further labs and recommendations pending and postoperative phase Time with Patient: Greater than 30
[2020-03-06] MEDS ORDERED: IOPAMIDOL-370 50ML BTL MISCELLANE ONE ×2 (17:29)
--- NOTE | 2020-03-06 17:59 | HP ---
HISTORY AND PHYSICAL This patient is a 69-year-old white male with elevated bilirubin of 5 yesterday. He was sent to the emergency room today. He is having increasing pain over the last 1-2 days in his left leg. He had a normal arterial Doppler within the last year. He does drink alcohol, at least 30 a week, and is a heavy smoker. He is not on any blood thinners. I suspect he has severe liver failure due to bilirubin of 5, at which time he was sent to the ER. He was found to be in pancreatitis with elevated liver enzymes and elevated pancreas enzymes. HOME MEDICATIONS: 1. Zocor 20 daily. 2. Neurontin 800 t.i.d. 3. Norvasc 10 mg daily. ALLERGIES: Negative. REVIEW OF SYSTEMS: Fourteen-point review of systems negative except for mentioned in HPI. PAST MEDICAL HISTORY: Hypertension, dyslipidemia. PAST SURGICAL HISTORY: Colonoscopy. SOCIAL HISTORY: Alcohol daily. Smokers for 50 years one pack a day. Way more than 2 beers a day; we are talking like 6-8 beers a day, if not more. FAMILY HISTORY: Unremarkable. PHYSICAL EXAMINATION: He is thin, cachectic. LUNGS: Decreased breath sounds x4. CARDIOVASCULAR: S1, S2. GI: Soft. Mild tenderness. No rebound. Minimal guarding. EXTREMITIES: slight coolness of the left leg. Otherwise no edema. NEUROLOGIC: Cranial nerves are intact. PSYCH: Fair mood and affect. SKIN: No rash, excoriation, bruising. VITAL SIGNS: Temperature 96.9, pulse 116-125, respiratory rate 20-24, blood pressure 140s over 59 to 80. Oxygen 98% to 100%. The plan is to take him to surgery for possible blocked artery in the left leg, acute nature. Acute renal failure, acute liver failure. Left lower extremity arterial occlusion was found. Vascular surgery. Go to the ICU. Labs were reviewed. PLAN: Treat for pancreatitis and liver failure. [facility] protocol. Metabolic acidosis, acute renal failure secondary to possible multifactorial, including pancreatitis, possibly arterial occlusion of the left lower extremity. Please see further orders. MMODL / IJN: [id number] /
[2020-03-06] MEDS ORDERED: THROMBIN (BOVINE) 5,000 UNIT VIAL TOPICAL ONE (20:14)
[2020-03-06 21:05] LABS: Glucose,Whole Blood 125 mg/dL (75-99)
--- NOTE | 2020-03-06 21:17 | P.OP ---
Date of Procedure: 03/06/20 Description of Procedure: Preoperative diagnosis: [Gricelda 2b/3 acute ischemia left lower extremity Chronic left lower extremity arterial disease Alcoholic liver disease Metabolic encephalopathy Metabolic acidosis Thrombocytopenia Elevated INR] Postoperative diagnosis: Same Procedure: [ #1 left femoral cutdown and open thrombectomy #2 left femoral endarterectomy of the common, superficial and deep femoral arteries with patch angioplasty #3 left iliofemoral angiogram #4 aortogram #5 percutaneous transluminal balloon angioplasty 4 x 100, 6 x 60 left common iliac and external iliac arteries #6 7 x 59 VBX left common iliac artery stent #7 left lower extremity angiogram #8 percutaneous transluminal balloon angioplasty left superficial femoral artery #9 6 x 29 VBX stent in the left superficial femoral artery #10 right femoral cutdown #11 open thrombectomy of the right iliac and femoral artery #12 for compartment left lower extremity fasciotomy] Surgeon: Isabel Copeland D.O. Anesthesia: Gen. endotracheal EBL: [200 mL] IV fluids: [See records] Urine output: [See records] Drains: [None] Complications: [None immediately apparent] Condition: [Stable but highly critical] Operative indication and findings: [The patient is a 69-year-old male who presented to the hospital today with pains in his left lower extremity. On evaluation he was found to have acute arterial occlusion without any femoral pulse. At the time of my evaluation he had minimal abilities to move his toes or bend at the knee. He states that he is not sure how long his pain has been going on for, at first answer he says one year but that it got worse yesterday. He was found to also be child Leon c . Given all these things long discussion was had with the patient, and also with his brother the next of kin. Risks of significant comorbidities including FL, pulmonary issues, loss of leg, loss of life and others were discussed. His brother seemingly understood and were willing to proceed.] Procedure in detail: [The patient was taken to the operative suite and placed in supine position. The left lower extremity and right thyroid prepped and draped in usual sterile fashion. A preprocedure timeout was performed, all parties were in agreement. A longitudinal incision was made in the left femoral canal. It was carried down through subcutaneous tissues to the level of the artery. There was significant arterial disease with highly calcification of the femoral artery. The common femoral, deep and superficial femoral arteries were encircled with vessel loops. The patient was further heparinized and ACT is were followed. An arteriotomy was performed and enlarged with a Sotelo scissors. A [place] elevator was used and the endarterectomy was performed. Careful attention was performed at the deep femoral artery which was endarterectomized with good backflow. All backbleeding from the deep and superficial femoral arteries were significantly dark. The plaque was fully removed the artery was cleansed and 5-0 Prolene was used to the anastomosis with a bovine pericardial patch. A wire was placed through the patch and up into the external iliac artery. A 6, then 8-Indonesian sheath was placed. Iliofemoral angiogram was performed revealing occlusion of the common iliac artery. Guidewires catheters were used to cross the total occlusion. An aortogram was performed to confirm intraluminal access. The aorta was normal in course and caliber. The right iliac was patent to the level of femoral. Percutaneous transluminal balloon angioplasty with a 4 x 106 x 60 balloon was performed at the left common and external iliac arteries. A subsequent 7 x 59 covered stent was placed at the common iliac artery. At further evaluation with an angiogram, there was thrombus was extruded to the right common femoral system. There was good flow through the left common iliac system and stent. There is no obvious further areas of occlusion or narrowing there. At that point given the change in aortogram, the right femoral cutdown was performed. At the level of the femoral artery, there was significant hard calcific disease. There was an area of soft artery therefore transverse arteriotomy is performed. A 3 Tamra balloon was placed and a large clot was extruded. The catheter was passed once more no further clot was extruded. There is good flow through with a strong palpable pulse. The arteriotomy was reapproximated with 6-0 Prolene in interrupted fashion. There was cleansed and thrombin and Gelfoam was placed. Attention was then turned back towards the left femoral. Of note prior to the endarterectomy a 3 Tamra catheter was placed proximal and distally without significant thrombus. At that point the sheath was repositioned into a antegrade fashion facing down the leg. A left lower extremity angiogram was performed. There was some narrowing and small evidence of dissection at the proximal superficial femoral artery. There was occlusion at the level of the abductor canal with significant collateralization into the distal vessels but no obvious or apparent reconstitution. There was brisk washout of the contrast. At that point the left superficial femoral artery was angioplastied with a 6 x 60 balloon. A 6 x 29 covered stent was placed at the proximal superficial femoral artery. A final anagrams performed revealing improvement with brisk washout. Thrombin Gelfoam was placed. At that point attention was turned to the 4 compartment fasciotomy. At the lateral portion of the leg, a longitudinal incision was created and carried down to the fascia. A small sintia in the fascia on the anterior posterior portions in the anterior and lateral compartments was made and connected through the intramuscular septum sharply. A Metzenbaum scissors was utilized and the fascia was released in the cephalad and caudad direction through both compartments. The muscle appeared dusky but did have some responsiveness to the electrocautery. Attention was then turned medially the centimeters posterior to the tibial edge in incision was made and carried down to the level of the fascia. The superficial posterior compartment was opened proximally and distally. Blunt dissection was performed into the deep compartment which was opened along the tibia. These areas were copiously irrigated. FloSeal was added to the bilateral groins to help with minimal oozing. The subcu tissues were then reapproximated with running sutures of 3-0 Vicryl. The skin was reapproximated with alfredo. At the site of the fasciotomy wet-to-dry dressings were placed. The patient remained intubated and was transferred to ICU in critical condition]
[2020-03-06 21:31] LABS: ABG HCO3 13 mmol/L (21-25); ABG Oxygen Saturation 99.3 % (94-97); ABG PCO2 48 mmHg (35-45); ABG PO2 >400 mmHg (83-108); ABG TCO2 15 mmol/L (19-24); Allen Test Performed? Yes
[2020-03-06 21:32] LABS: Basophils % (A) 0 %; Eosinophils % (A) 1 %; HCT 28.4 % (39.0-53.0); Hypochromasia Marked; Lymphocytes # (A) 0.2 k/uL (1.0-4.8); Lymphocytes % (A) 2 %; MCH 35.2 pg (25.0-35.0); MCHC 31.3 g/dL (31.0-37.0); MCV 112.7 fL (80.0-100.0); Macrocytosis Marked; Mean Platelet Volume 9.7; Monocytes # (A) 0.2 k/uL (0-1.0); Monocytes % (A) 2 %; Neutrophils # (A) 7.8 k/uL (1.3-7.7); Neutrophils % (A) 95 %; RBC 2.52 m/uL (4.30-5.90); RDW 14.4 % (11.5-15.5); WBC 8.2 k/uL (3.8-10.6)
[2020-03-06 21:36] LABS: Albumin 3.8 g/dL (3.5-5.0); Calcium 6.8 mg/dL (8.4-10.2); HGB 8.9 gm/dL (13.0-17.5); Platelet Count 83 k/uL (150-450); Potassium 5.5 mmol/L (3.5-5.1); Total Bilirubin 4.5 mg/dL (0.2-1.3); Total Protein 5.8 g/dL (6.3-8.2)
[2020-03-06 21:39] LABS: INR 2.4 (<1.2); Partial Thromboplastin Time 35.3 sec (22.0-30.0); Prothrombin Time 23.4 sec (9.0-12.0)
[2020-03-06 21:52] LABS: ABG PH 7.06 (7.35-7.45)
[2020-03-06] MEDS: THIAMINE 100 MG TAB PO SCH (21:52)
[2020-03-06] MEDS: atenoloL 25 MG TAB PO SCH (21:58)
[2020-03-06] MEDS: PIPERACILLIN-TAZOBACTAM 3.375 GM in SODIUM CHLORIDE 0.9% 100 ML IVPB SCH (21:59)
--- NOTE | 2020-03-06 22:06 | XR ---
EXAMINATION TYPE: XR chest 1V portable DATE OF EXAM: 03/06/2020 COMPARISON: 03/01/2016 HISTORY: Check tube placement TECHNIQUE: Single view FINDINGS: Endotracheal tube is 6 cm from the doyle. There is nasogastric tube in the stomach. There is no heart failure. Heart size is normal. Lungs are clear of consolidation. There are chest leads. IMPRESSION: No active cardiopulmonary disease. Heart and lungs unchanged.
[2020-03-06] MEDS ORDERED: fentaNYL (PF) 50 MCG/ML 2 ML AMP IVP ONE (22:21)
[2020-03-06] MEDS ORDERED: MIDAZOLAM 2 MG/2 ML VIAL IVP ONE (22:21)
[2020-03-06] MEDS: DEXTROSE 5% IN WATER 1,000 ML with SODIUM BICARB (1 MEQ/ML) 150 ML IV SCH (23:13)
[2020-03-07 00:35] LABS: Glucose,Whole Blood 131 mg/dL (75-99)
[2020-03-07 03:58] LABS: Hemoglobin A1C 5.4 % (4.0-6.0)
[2020-03-07] MEDS: PIPERACILLIN-TAZOBACTAM 3.375 GM in SODIUM CHLORIDE 0.9% 100 ML IVPB SCH ×3 (04:23→18:46)
[2020-03-07] MEDS: SODIUM CHLORIDE 0.9% 1,000 ML IV SCH ×3 (04:27→18:47)
[2020-03-07 04:37] LABS: Basophils % (A) 0 %; Eosinophils % (A) 1 %; HCT 28.2 % (39.0-53.0); Lymphocytes # (A) 0.5 k/uL (1.0-4.8); Lymphocytes % (A) 7 %; MCH 34.2 pg (25.0-35.0); MCHC 32.1 g/dL (31.0-37.0); Macrocytosis Moderate; Mean Platelet Volume 9.7; Monocytes # (A) 0.2 k/uL (0-1.0); Monocytes % (A) 3 %; Neutrophils # (A) 6.1 k/uL (1.3-7.7); Neutrophils % (A) 90 %; RBC 2.65 m/uL (4.30-5.90); RDW 14.6 % (11.5-15.5); WBC 6.8 k/uL (3.8-10.6)
[2020-03-07 04:48] LABS: MCV 106.6 fL (80.0-100.0); Platelet Count 70 k/uL (150-450)
[2020-03-07 04:52] LABS: Albumin 3.2 g/dL (3.5-5.0); Potassium 4.8 mmol/L (3.5-5.1); Total Bilirubin 5.1 mg/dL (0.2-1.3); Total Protein 5.2 g/dL (6.3-8.2)
[2020-03-07 05:12] LABS: Calcium 6.4 mg/dL (8.4-10.2)
[2020-03-07 05:17] LABS: ABG HCO3 21 mmol/L (21-25); ABG Oxygen Saturation 99.6 % (94-97); ABG PCO2 32 mmHg (35-45); ABG PH 7.42 (7.35-7.45); ABG PO2 241 mmHg (83-108); ABG TCO2 22 mmol/L (19-24); Allen Test Performed? Yes
[2020-03-07 05:21] LABS: Lactic Acid, Venous 4.5 mmol/L (0.7-2.0)
[2020-03-07 06:03] LABS: Glucose,Whole Blood 95 mg/dL (75-99)
[2020-03-07] MEDS ORDERED: CALCIUM CHLORIDE 100 MG/ML 10 ML SYRINGE IVP ONE ×2 (06:13→06:14)
[2020-03-07] MEDS: THIAMINE 100 MG TAB PO SCH ×2 (06:51→18:45)
--- NOTE | 2020-03-07 07:29 | FL ---
EXAMINATION TYPE: FL guidance operating room DATE OF EXAM: 03/06/2020 HISTORY: Fluoroscopy time 13 minutes and 49 seconds of fluoroscopy provided. IMPRESSION: 1. Fluoroscopy time.
--- NOTE | 2020-03-07 07:33 | XR ---
EXAMINATION TYPE: XR chest 1V portable DATE OF EXAM: 03/07/2020 COMPARISON: 03/06/2020 HISTORY: Tube placement TECHNIQUE: Single frontal view of the chest is obtained. FINDINGS: There is no focal air space opacity, pleural effusion, or pneumothorax seen. The cardiac silhouette size is within normal limits. The osseous structures are intact. ET and NG tube stable. Heart size normal. Chronic deformity of the left shoulder. No overt failure. Correlate for underlying COPD. Remote right clavicular fracture. IMPRESSION: No acute process.
--- NOTE | 2020-03-07 07:56 | US ---
EXAMINATION TYPE: US liver DATE OF EXAM: 03/07/2020 COMPARISON: NONE CLINICAL HISTORY: Liver failure. Liver failure, pt in ICU EXAM MEASUREMENTS: Liver Length: 19.5 cm Gallbladder Wall: 0.7 cm CBD: 0.5 cm Right Kidney: 11.3 x 4.8 x 4.5 cm Pancreas: wnl Liver: Difficult to penetrate, enlarged, heterogeneous Gallbladder: Lumen clear, pericholecystic fluid, wall thickened Evidence for sonographic Alfred's sign: No, pt vented CBD: wnl Right Kidney: wnl IMPRESSION: 1. Hepatomegaly with heterogeneous echo pattern which can be seen with hepatic steatosis, diffuse hep atocellular disease or hepatitis correlate clinically. 2. No gallstones however, there is pericholecystic fluid and thickening of the gallbladder wall corre late for cholecystitis.
[2020-03-07] MEDS: CHLORHEXIDINE GLUCONATE 15 ML CUP MUCOUS MEM SCH ×2 (09:38→21:44)
[2020-03-07] MEDS: PANTOPRAZOLE 40 MG/10 ML VIAL IVP SCH ×2 (09:38→21:44)
[2020-03-07] MEDS: atenoloL 25 MG TAB PO SCH ×2 (09:38→21:44)
[2020-03-07] MEDS ORDERED: SODIUM CHLORIDE 0.9% 500 ML 500 ML IV ONE (10:04)
--- NOTE | 2020-03-07 11:01 | P.PN ---
Subjective Progress Note Date: 03/07/20 (Critical care time 45 minutes) Principal diagnosis: Severe metabolic acidosis due to ischemic leg Acute kidney injury Ischemic left lower extremity Peripheral vascular disease Cirrhosis of the liver Lactic acidosis Extensive history of alcohol consumption Acute pancreatitis 03/07/2020, patient seen and evaluated examined during the round labs reviewed medications reviewed care plan discussed, critical care time spent 35 minutes, patient remains intubated on full ventilator support currently he is on FiO2 of 50%, tidal volume of 500, PEEP of 5, his sed rate is 14 breathing about 16 times a minute, he is on propofol sedated adequately, labs reviewed medications rev iewed, his chest x-ray showed minimal effusion otherwise unremarkable ET tube is stable, patient has NG tube, NG tube aspirate is noted to be heme positive, patient has a significant drop in hemoglobin from 16 to 8 now, which is likely due to vascular surgery, patient is status post day #1 of left femoral endarterectomy by Dr. Copeland's for detail. Please refer to the operative note, also noted urine to be very dark and dusky, with minimal output, white cell count remained stable hemoglobin latest check was 9, platelet count is 70,000, after bicarb drip the bicarb in the blood is up to 21, patient has history of base deficit of -4, BUN/creatinine slightly improved to 18 and 1.96, lactic acid down to 4.5, calcium is 6.4 which is being replaced, a mildly is alive status 162/1861, ammonia is a 50, will give fluid bolus of 500 mL increase fluids to 1 50 mL an hour, decreased the bicarb drip to 30, need to stop propofol drip due to pancreatitis some other means will be considered for sedation, patient remains on IV antibiotics with Zosyn, the left leg appearance slightly better and improved from pedal white yesterday to normal color now however dorsalis pedis and posterior. We'll are still negative with Doppler. Refill slightly improved compared to yesterday exam, This is a 72-year-old male came into the hospital with left leg pain and started from the groin, patient has been having ongoing pain for the last 2 days, also have pale discoloration patient has a significant history of alcohol consumption as well as vascular disease he is a resident of [facility], he is accompanied by his brother data predominantly has been obtained from him, Review of the data revealed that he has history of hyperlipidemia, hypertension, alcohol abuse who states he drinks a 30 pack a week and has been drinking for greater than 30 years, and is a pack-a-day smoker for greater than 50 years. The patient states he has been having bilateral lower extremity pain for at least the last year, however starting today he had worse pain in the left lower extremity. States that he saw Dr. Fitch in the office yesterday. In February 2019 he had a arterial study of the bilateral lower extremity showing moderate left fem-pop disease with possible iliac component. The patient denies any shortness of breath or chest pain. He is able to ambulate, however does have pain with ambulation. He also has multiple scratches and scabbing on bilateral lower extremities left greater than right. Patient's friend at the bedside states that he itches his legs a lot, which causes the scabbing. The patient is alert and answers his questions appropriately, he is able to follow commands, states he knows he is at [facility], states his birthday and name, however was confused on the current year when asked. Admission labs show WBC 9.9, hemoglobin 16.4, hematocrit 53.5, platelets 69,000 PT 47.2, INR 4.7, sodium 131, potassium 4.9, chloride 89, carbon dioxide 9, BUNs 16, creatinine 2.21, glucose 42, plasma lactic acid 15.3 magnesium 2.6, total bili 7.4, alk phos 126, AST greater than 15,000, ALTs 6746, ammonia 47, creatinine kidneys 365, amylase 195, lipase 1213. Vascular surgery have evaluated this patient, patient is being taken to the OR with FFP risk have been discussed with the patient's brother and they appeared to understand as mentioned by vascular surgery Objective - Vital Signs Vital signs: Vital Signs Temp 97.9 F 03/07/20 08:00 Pulse 88 03/07/20 10:00 Resp 14 03/07/20 10:00 BP 138/69 03/07/20 10:00 Pulse Ox 100 03/07/20 10:00 Intake & Output 03/06/20 03/07/20 03/07/20 18:59 06:59 18:59 Intake Total 751 1362.517 740 Output Total 950 810 73 Balance -199 552.517 667 Weight 54.431 kg 57.5 kg 57.5 kg Intake: IV 103 1300 640 Dextrose 5% in Water 1, 400 175 000 ml @ 25 mls/hr IV . Q24H [facility] with Sodium Bicarb (1 Meq/ml) 150 ml Rx#:[id number] Piperacillin-Tazobactam 3 25 .375 gm In Sodium Chloride 0.9% 100 ml @ 25 mls/hr IVPB Q8H [facility] Rx#: [id number] Sodium Chloride 0.9% 1, 900 440 000 ml @ 150 mls/hr IV . Q6H40M [facility] Rx#:[id number] Intake, IV Titration 62.517 Amount propofoL 1,000 mg In 62.517 Empty Bag 1 bag @ Titrate IV .Q0M [facility] Rx#: [id number] Oral 100 Blood Product 648 Ffp 24 Cpd Unit 0 [id number] Ffp 24 Cpd Unit 341 [id number] Platelet Irr Pheresis 307 Acda1 Unit [id number] Output: Gastric Drainage 300 Urine 750 510 73 Estimated Blood Loss 200 Other: Voiding Method Indwelling Catheter Indwelling Catheter Indwelling Catheter ABP, PAP, CO, CI - Last Documented Arterial Blood Pressure 188/85 - Exam - Constitutional General appearance: disheveled, mild distress, thin, sedated with full ventilator support - EENT Eyes: EOMI, PERRLA ENT: hard of hearing Ears: bilateral: normal - Neck Carotids: bilateral: upstroke normal Thyroid: bilateral: normal size - Respiratory Respiratory: bilateral: CTA - Cardiovascular Rhythm: regular Heart sounds: normal: S1, S2 - Gastrointestinal General gastrointestinal: hyperactive bowel sounds - Neurologic Neurologic: Sedated on full ventilator support - Musculoskeletal Musculoskeletal: generalized weakness Normal color now however left lower extremity with negative dopplerable pulses involving dorsalis pedis and posterior tibial - Labs CBC & Chem 7: 03/07/20 04:10 03/07/20 04:10 Labs: Abnormal Lab Results - Last 24 Hours (Table) 03/06/20 03/06/20 03/06/20 Range/Units 11:38 11:38 11:38 RBC (4.30-5.90) m/uL Hgb (13.0-17.5) gm/dL Hct 53.5 H (39.0-53.0) % MCV 112.2 H (80.0-100.0) fL MCH (25.0-35.0) pg MCHC 30.6 L (31.0-37.0) g/dL Plt Count 69 L (150-450) k/uL Neutrophils # (1.3-7.7) k/uL Neutrophils # (Manual) 9.20 H (1.3-7.7) k/uL Lymphocytes # (1.0-4.8) k/uL Lymphocytes # (Manual) 0.40 L (1.0-4.8) k/uL Myelocytes # (Manual) 0.10 H (0) k/uL Macrocytosis Marked A PT 47.2 H (9.0-12.0) sec INR 4.7 H (<1.2) APTT 32.3 H (22.0-30.0) sec ABG pH (7.35-7.45) ABG pCO2 (35-45) mmHg ABG pO2 (83-108) mmHg ABG HCO3 (21-25) mmol/L ABG Total CO2 (19-24) mmol/L ABG O2 Saturation (94-97) % Sodium (137-145) mmol/L Potassium (3.5-5.1) mmol/L Chloride (98-107) mmol/L Carbon Dioxide (22-30) mmol/L Creatinine (0.66-1.25) mg/dL Glucose (74-99) mg/dL POC Glucose (mg/dL) (75-99) mg/dL Plasma Lactic Acid Loco (0.7-2.0) mmol/L Calcium (8.4-10.2) mg/dL Magnesium (1.6-2.3) mg/dL Total Bilirubin (0.2-1.3) mg/dL AST (17-59) U/L ALT (4-49) U/L Ammonia (<30) umol/L Creatine Kinase (55-170) U/L Total Protein (6.3-8.2) g/dL Albumin (3.5-5.0) g/dL Amylase (30-110) U/L Lipase (23-300) U/L Urine Protein 2+ H (Negative) Urine Ketones Trace H (Negative) Urine Blood Moderate H (Negative) Urine Bilirubin 1+ H (Negative) Urine WBC 36 H (0-5) /hpf Urine WBC Clumps Moderate H (None) /hpf Urine Bacteria Rare H (None) /hpf Hyaline Casts 17 H (0-2) /lpf Urine Mucus Rare H (None) /hpf 03/06/20 03/06/20 03/06/20 Range/Units 11:38 11:38 13:29 RBC (4.30-5.90) m/uL Hgb (13.0-17.5) gm/dL Hct (39.0-53.0) % MCV (80.0-100.0) fL MCH (25.0-35.0) pg MCHC (31.0-37.0) g/dL Plt Count (150-450) k/uL Neutrophils # (1.3-7.7) k/uL Neutrophils # (Manual) (1.3-7.7) k/uL Lymphocytes # (1.0-4.8) k/uL Lymphocytes # (Manual) (1.0-4.8) k/uL Myelocytes # (Manual) (0) k/uL Macrocytosis PT (9.0-12.0) sec INR (<1.2) APTT (22.0-30.0) sec ABG pH (7.35-7.45) ABG pCO2 (35-45) mmHg ABG pO2 (83-108) mmHg ABG HCO3 (21-25) mmol/L ABG Total CO2 (19-24) mmol/L ABG O2 Saturation (94-97) % Sodium 131 L (137-145) mmol/L Potassium (3.5-5.1) mmol/L Chloride 89 L (98-107) mmol/L Carbon Dioxide 9 L* (22-30) mmol/L Creatinine 2.21 H (0.66-1.25) mg/dL Glucose 42 L* (74-99) mg/dL POC Glucose (mg/dL) (75-99) mg/dL Plasma Lactic Acid Loco 15.3 H* (0.7-2.0) mmol/L Calcium (8.4-10.2) mg/dL Magnesium 2.6 H (1.6-2.3) mg/dL Total Bilirubin 7.4 H (0.2-1.3) mg/dL AST >24558 H (17-59) U/L ALT 6746 H (4-49) U/L Ammonia 47 H (<30) umol/L Creatine Kinase 365 H (55-170) U/L Total Protein (6.3-8.2) g/dL Albumin (3.5-5.0) g/dL Amylase 195 H (30-110) U/L Lipase 1213 H (23-300) U/L Urine Protein (Negative) Urine Ketones (Negative) Urine Blood (Negative) Urine Bilirubin (Negative) Urine WBC (0-5) /hpf Urine WBC Clumps (None) /hpf Urine Bacteria (None) /hpf Hyaline Casts (0-2) /lpf Urine Mucus (None) /hpf 03/06/20 03/06/20 03/06/20 Range/Units 13:41 15:32 15:59 RBC (4.30-5.90) m/uL Hgb (13.0-17.5) gm/dL Hct (39.0-53.0) % MCV (80.0-100.0) fL MCH (25.0-35.0) pg MCHC (31.0-37.0) g/dL Plt Count (150-450) k/uL Neutrophils # (1.3-7.7) k/uL Neutrophils # (Manual) (1.3-7.7) k/uL Lymphocytes # (1.0-4.8) k/uL Lymphocytes # (Manual) (1.0-4.8) k/uL Myelocytes # (Manual) (0) k/uL Macrocytosis PT (9.0-12.0) sec INR (<1.2) APTT (22.0-30.0) sec ABG pH (7.35-7.45) ABG pCO2 (35-45) mmHg ABG pO2 (83-108) mmHg ABG HCO3 (21-25) mmol/L ABG Total CO2 (19-24) mmol/L ABG O2 Saturation (94-97) % Sodium (137-145) mmol/L Potassium (3.5-5.1) mmol/L Chloride (98-107) mmol/L Carbon Dioxide (22-30) mmol/L Creatinine (0.66-1.25) mg/dL Glucose (74-99) mg/dL POC Glucose (mg/dL) 126 H 126 H (75-99) mg/dL Plasma Lactic Acid Loco 16.1 H* (0.7-2.0) mmol/L Calcium (8.4-10.2) mg/dL Magnesium (1.6-2.3) mg/dL Total Bilirubin (0.2-1.3) mg/dL AST (17-59) U/L ALT (4-49) U/L Ammonia (<30) umol/L Creatine Kinase (55-170) U/L Total Protein (6.3-8.2) g/dL Albumin (3.5-5.0) g/dL Amylase (30-110) U/L Lipase (23-300) U/L Urine Protein (Negative) Urine Ketones (Negative) Urine Blood (Negative) Urine Bilirubin (Negative) Urine WBC (0-5) /hpf Urine WBC Clumps (None) /hpf Urine Bacteria (None) /hpf Hyaline Casts (0-2) /lpf Urine Mucus (None) /hpf 03/06/20 03/06/20 03/06/20 Range/Units 16:43 21:04 21:05 RBC (4.30-5.90) m/uL Hgb (13.0-17.5) gm/dL Hct (39.0-53.0) % MCV (80.0-100.0) fL MCH (25.0-35.0) pg MCHC (31.0-37.0) g/dL Plt Count (150-450) k/uL Neutrophils # (1.3-7.7) k/uL Neutrophils # (Manual) (1.3-7.7) k/uL Lymphocytes # (1.0-4.8) k/uL Lymphocytes # (Manual) (1.0-4.8) k/uL Myelocytes # (Manual) (0) k/uL Macrocytosis PT 23.4 H (9.0-12.0) sec INR 2.4 H (<1.2) APTT 35.3 H (22.0-30.0) sec ABG pH (7.35-7.45) ABG pCO2 (35-45) mmHg ABG pO2 (83-108) mmHg ABG HCO3 (21-25) mmol/L ABG Total CO2 (19-24) mmol/L ABG O2 Saturation (94-97) % Sodium (137-145) mmol/L Potassium (3.5-5.1) mmol/L Chloride (98-107) mmol/L Carbon Dioxide (22-30) mmol/L Creatinine (0.66-1.25) mg/dL Glucose (74-99) mg/dL POC Glucose (mg/dL) 134 H 125 H (75-99) mg/dL Plasma Lactic Acid Loco (0.7-2.0) mmol/L Calcium (8.4-10.2) mg/dL Magnesium (1.6-2.3) mg/dL Total Bilirubin (0.2-1.3) mg/dL AST (17-59) U/L ALT (4-49) U/L Ammonia (<30) umol/L Creatine Kinase (55-170) U/L Total Protein (6.3-8.2) g/dL Albumin (3.5-5.0) g/dL Amylase (30-110) U/L Lipase (23-300) U/L Urine Protein (Negative) Urine Ketones (Negative) Urine Blood (Negative) Urine Bilirubin (Negative) Urine WBC (0-5) /hpf Urine WBC Clumps (None) /hpf Urine Bacteria (None) /hpf Hyaline Casts (0-2) /lpf Urine Mucus (None) /hpf 03/06/20 03/06/20 03/06/20 Range/Units 21:05 21:05 21:05 RBC 2.52 L (4.30-5.90) m/uL Hgb 8.9 L D (13.0-17.5) gm/dL Hct 28.4 L (39.0-53.0) % MCV 112.7 H (80.0-100.0) fL MCH 35.2 H (25.0-35.0) pg MCHC (31.0-37.0) g/dL Plt Count 83 L (150-450) k/uL Neutrophils # 7.8 H (1.3-7.7) k/uL Neutrophils # (Manual) (1.3-7.7) k/uL Lymphocytes # 0.2 L (1.0-4.8) k/uL Lymphocytes # (Manual) (1.0-4.8) k/uL Myelocytes # (Manual) (0) k/uL Macrocytosis Marked A PT (9.0-12.0) sec INR (<1.2) APTT (22.0-30.0) sec ABG pH (7.35-7.45) ABG pCO2 (35-45) mmHg ABG pO2 (83-108) mmHg ABG HCO3 (21-25) mmol/L ABG Total CO2 (19-24) mmol/L ABG O2 Saturation (94-97) % Sodium 132 L (137-145) mmol/L Potassium 5.5 H (3.5-5.1) mmol/L Chloride (98-107) mmol/L Carbon Dioxide 13 L (22-30) mmol/L Creatinine 1.57 H (0.66-1.25) mg/dL Glucose 110 H (74-99) mg/dL POC Glucose (mg/dL) (75-99) mg/dL Plasma Lactic Acid Loco 10.2 H* (0.7-2.0) mmol/L Calcium 6.8 L (8.4-10.2) mg/dL Magnesium (1.6-2.3) mg/dL Total Bilirubin 4.5 H (0.2-1.3) mg/dL AST 9834 H (17-59) U/L ALT 3416 H (4-49) U/L Ammonia (<30) umol/L Creatine Kinase (55-170) U/L Total Protein 5.8 L (6.3-8.2) g/dL Albumin (3.5-5.0) g/dL Amylase (30-110) U/L Lipase (23-300) U/L Urine Protein (Negative) Urine Ketones (Negative) Urine Blood (Negative) Urine Bilirubin (Negative) Urine WBC (0-5) /hpf Urine WBC Clumps (None) /hpf Urine Bacteria (None) /hpf Hyaline Casts (0-2) /lpf Urine Mucus (None) /hpf 03/06/20 03/07/20 03/07/20 Range/Units 21:28 00:33 00:35 RBC (4.30-5.90) m/uL Hgb (13.0-17.5) gm/dL Hct (39.0-53.0) % MCV (80.0-100.0) fL MCH (25.0-35.0) pg MCHC (31.0-37.0) g/dL Plt Count (150-450) k/uL Neutrophils # (1.3-7.7) k/uL Neutrophils # (Manual) (1.3-7.7) k/uL Lymphocytes # (1.0-4.8) k/uL Lymphocytes # (Manual) (1.0-4.8) k/uL Myelocytes # (Manual) (0) k/uL Macrocytosis PT (9.0-12.0) sec INR (<1.2) APTT (22.0-30.0) sec ABG pH 7.06 L* (7.35-7.45) ABG pCO2 48 H (35-45) mmHg ABG pO2 >400 H (83-108) mmHg ABG HCO3 13 L (21-25) mmol/L ABG Total CO2 15 L (19-24) mmol/L ABG O2 Saturation 99.3 H (94-97) % Sodium (137-145) mmol/L Potassium (3.5-5.1) mmol/L Chloride (98-107) mmol/L Carbon Dioxide (22-30) mmol/L Creatinine (0.66-1.25) mg/dL Glucose (74-99) mg/dL POC Glucose (mg/dL) 131 H (75-99) mg/dL Plasma Lactic Acid Loco 7.6 H* (0.7-2.0) mmol/L Calcium (8.4-10.2) mg/dL Magnesium (1.6-2.3) mg/dL Total Bilirubin (0.2-1.3) mg/dL AST (17-59) U/L ALT (4-49) U/L Ammonia (<30) umol/L Creatine Kinase (55-170) U/L Total Protein (6.3-8.2) g/dL Albumin (3.5-5.0) g/dL Amylase (30-110) U/L Lipase (23-300) U/L Urine Protein (Negative) Urine Ketones (Negative) Urine Blood (Negative) Urine Bilirubin (Negative) Urine WBC (0-5) /hpf Urine WBC Clumps (None) /hpf Urine Bacteria (None) /hpf Hyaline Casts (0-2) /lpf Urine Mucus (None) /hpf 03/07/20 03/07/20 03/07/20 Range/Units 04:10 04:10 04:10 RBC 2.65 L (4.30-5.90) m/uL Hgb 9.0 L (13.0-17.5) gm/dL Hct 28.2 L (39.0-53.0) % MCV 106.6 H D (80.0-100.0) fL MCH (25.0-35.0) pg MCHC (31.0-37.0) g/dL Plt Count 70 L (150-450) k/uL Neutrophils # (1.3-7.7) k/uL Neutrophils # (Manual) (1.3-7.7) k/uL Lymphocytes # 0.5 L (1.0-4.8) k/uL Lymphocytes # (Manual) (1.0-4.8) k/uL Myelocytes # (Manual) (0) k/uL Macrocytosis PT (9.0-12.0) sec INR (<1.2) APTT (22.0-30.0) sec ABG pH (7.35-7.45) ABG pCO2 (35-45) mmHg ABG pO2 (83-108) mmHg ABG HCO3 (21-25) mmol/L ABG Total CO2 (19-24) mmol/L ABG O2 Saturation (94-97) % Sodium 134 L (137-145) mmol/L Potassium (3.5-5.1) mmol/L Chloride (98-107) mmol/L Carbon Dioxide (22-30) mmol/L Creatinine 1.96 H (0.66-1.25) mg/dL Glucose 102 H (74-99) mg/dL POC Glucose (mg/dL) (75-99) mg/dL Plasma Lactic Acid Loco 4.5 H* (0.7-2.0) mmol/L Calcium 6.4 L* (8.4-10.2) mg/dL Magnesium (1.6-2.3) mg/dL Total Bilirubin 5.1 H (0.2-1.3) mg/dL AST 09600 H (17-59) U/L ALT 3559 H (4-49) U/L Ammonia 80 H (<30) umol/L Creatine Kinase (55-170) U/L Total Protein 5.2 L (6.3-8.2) g/dL Albumin 3.2 L (3.5-5.0) g/dL Amylase 162 H (30-110) U/L Lipase 1861 H (23-300) U/L Urine Protein (Negative) Urine Ketones (Negative) Urine Blood (Negative) Urine Bilirubin (Negative) Urine WBC (0-5) /hpf Urine WBC Clumps (None) /hpf Urine Bacteria (None) /hpf Hyaline Casts (0-2) /lpf Urine Mucus (None) /hpf 03/07/20 Range/Units 05:15 RBC (4.30-5.90) m/uL Hgb (13.0-17.5) gm/dL Hct (39.0-53.0) % MCV (80.0-100.0) fL MCH (25.0-35.0) pg MCHC (31.0-37.0) g/dL Plt Count (150-450) k/uL Neutrophils # (1.3-7.7) k/uL Neutrophils # (Manual) (1.3-7.7) k/uL Lymphocytes # (1.0-4.8) k/uL Lymphocytes # (Manual) (1.0-4.8) k/uL Myelocytes # (Manual) (0) k/uL Macrocytosis PT (9.0-12.0) sec INR (<1.2) APTT (22.0-30.0) sec ABG pH (7.35-7.45) ABG pCO2 32 L (35-45) mmHg ABG pO2 241 H (83-108) mmHg ABG HCO3 (21-25) mmol/L ABG Total CO2 (19-24) mmol/L ABG O2 Saturation 99.6 H (94-97) % Sodium (137-145) mmol/L Potassium (3.5-5.1) mmol/L Chloride (98-107) mmol/L Carbon Dioxide (22-30) mmol/L Creatinine (0.66-1.25) mg/dL Glucose (74-99) mg/dL POC Glucose (mg/dL) (75-99) mg/dL Plasma Lactic Acid Loco (0.7-2.0) mmol/L Calcium (8.4-10.2) mg/dL Magnesium (1.6-2.3) mg/dL Total Bilirubin (0.2-1.3) mg/dL AST (17-59) U/L ALT (4-49) U/L Ammonia (<30) umol/L Creatine Kinase (55-170) U/L Total Protein (6.3-8.2) g/dL Albumin (3.5-5.0) g/dL Amylase (30-110) U/L Lipase (23-300) U/L Urine Protein (Negative) Urine Ketones (Negative) Urine Blood (Negative) Urine Bilirubin (Negative) Urine WBC (0-5) /hpf Urine WBC Clumps (None) /hpf Urine Bacteria (None) /hpf Hyaline Casts (0-2) /lpf Urine Mucus (None) /hpf Microbiology - Last 24 Hours (Table) 03/06/20 11:38 Urine Culture - Preliminary Urine,Voided Assessment and Plan Assessment: Severe metabolic acidosis due to ischemic leg Severe sepsis with multiorgan failure Acute on chronic pancreatitis Hepatitis worsening of liver enzymes likely related to ischemic injury Acute kidney injury Ischemic left lower extremity status post left femoral endarterectomy Acute on chronic pancreatitis Acute on chronic gastritis with heme positive gastric aspirate Acute ischemic liver injury Peripheral vascular disease Cirrhosis of the liver Lactic acidosis Extensive history of alcohol consumption Plan: Continue vent support titrate oxygen to 40% DC propofol will start fentanyl drip and use when necessary versed Patient is still volume depleted fluid bolus of 500 mL followed by increase IV fluid to 1 50 mL an hour Continue bicarb drip however rate reduced to 30 mL an hour Continue IV antibiotics Patient is off of heparin, DVT prophylaxis will be started with subcu heparin now Protonix 40 mg IV every 12, blood loss likely related to postoperative vascular surgery anticipated an expected complication Monitor renal functions and urine output closely Replace electrolytes including calcium IV calcium chloride Further recommendations pending plan of care as per clinical response of the physicians Time with Patient: Greater than 30
[2020-03-07 11:53] LABS: Glucose,Whole Blood 58 mg/dL (75-99)
[2020-03-07 12:00] LABS: Glucose,Whole Blood 76 mg/dL (75-99)
[2020-03-07] MEDS ORDERED: DEXTROSE 50% SYRINGE 50 ML IVP ONE (12:09)
[2020-03-07] MEDS ORDERED: HEPARIN SODIUM,PORCINE 5,000 UNIT/ML 1 ML VIAL IV PRN (12:30)
[2020-03-07 12:46] LABS: Glucose,Whole Blood 146 mg/dL (75-99)
[2020-03-07] MEDS: LACTULOSE 20 GM/30 ML CUP PO SCH ×2 (12:48→21:43)
--- NOTE | 2020-03-07 12:59 | P.PN ---
Subjective Progress Note Date: 03/07/20 The patient seen and examined at the bedside in the ICU. The patient is intubated and sedated. He has status postop day 1 for a left femoral open thrombectomy and endarterectomy of the common, superficial and deep femoral arteries with patch angioplasty, and left or extremity fasciotomy. He also underwent a right femoral cutdown open thrombectomy of the right iliac and femoral artery. The patient has an orogastric tube with maroon and dark colored secretions. There have been no other acute changes through the night. His dressings are clean dry and intact. As had decreased urinary output. His WBC this morning was 6.8, hemoglobin 9.0, hematocrit 28.2, platelets 70,000. Sodium 134, potassium 4.8, carbon dioxide 72, P1 11, creatinine 1.96 plasma lactic acid 4.5, calcium 6.4, bilirubin 5.1, AST 10,503, ALTs 3559, alk phos 61, amylase 162, lipase 1861, and positive gastric occult. Objective - Vital Signs Vital signs: Vital Signs Temp 98.6 F 03/07/20 04:00 Pulse 89 03/07/20 07:00 Resp 14 03/07/20 07:00 BP 107/56 03/07/20 07:00 Pulse Ox 100 03/07/20 07:00 Intake & Output 03/06/20 03/07/20 03/07/20 18:59 06:59 18:59 Intake Total 751 1362.517 130 Output Total 950 810 25 Balance -199 552.517 105 Weight 54.431 kg 57.5 kg Intake: IV 103 1300 130 Dextrose 5% in Water 1, 400 50 000 ml @ 50 mls/hr IV . Q23H CHENTE with Sodium Bicarb (1 Meq/ml) 150 ml Rx#:[id number] Sodium Chloride 0.9% 1, 900 80 000 ml @ 130 mls/hr IV . Q7H42M CHENTE Rx#:[id number] Intake, IV Titration 62.517 Amount propofoL 1,000 mg In 62.517 Empty Bag 1 bag @ Titrate IV .Q0M CHENTE Rx#: [id number] Blood Product 648 Ffp 24 Cpd Unit 0 [id number] Ffp 24 Cpd Unit 341 [id number] Platelet Irr Pheresis 307 Acda1 Unit [id number] Output: Gastric Drainage 300 Urine 750 510 25 Estimated Blood Loss 200 Other: Voiding Method Indwelling Catheter Indwelling Catheter ABP, PAP, CO, CI - Last Documented Arterial Blood Pressure 188/85 - Exam General appearance: Thin and frail. Sedated and intubated. HET: Head is normocephalic and atraumatic. Neck: Supple. Heart: S1 S2. Regular rate and rhythm. Lungs: No crackles or wheezes are heard. Abdomen: Soft, nontender, nondistended with bowel sounds. Extremities: Lateral groin incision sites clean dry and intact with no active bleeding. Palpable femoral pulses bilaterally. The left lower extremity has increased color, warmth, and capillary refill less than 5 seconds. A monophasic Doppler signal was obtained on the left DP. The right DP and PT with a biphasic Doppler signal. Right lower extremity warm to touch with good capillary refill. Left lower extremity fasciotomy site with dressing that is clean dry and intact. Able to bend the patient's left lower extremity at the knee. Neurological: Intubated and sedated. - Labs CBC & Chem 7: 03/07/20 04:10 03/07/20 04:10 Labs: Abnormal Lab Results - Last 24 Hours (Table) 03/06/20 03/06/20 03/06/20 Range/Units 11:38 11:38 11:38 RBC (4.30-5.90) m/uL Hgb (13.0-17.5) gm/dL Hct 53.5 H (39.0-53.0) % MCV 112.2 H (80.0-100.0) fL MCH (25.0-35.0) pg MCHC 30.6 L (31.0-37.0) g/dL Plt Count 69 L (150-450) k/uL Neutrophils # (1.3-7.7) k/uL Neutrophils # (Manual) 9.20 H (1.3-7.7) k/uL Lymphocytes # (1.0-4.8) k/uL Lymphocytes # (Manual) 0.40 L (1.0-4.8) k/uL Myelocytes # (Manual) 0.10 H (0) k/uL Macrocytosis Marked A PT 47.2 H (9.0-12.0) sec INR 4.7 H (<1.2) APTT 32.3 H (22.0-30.0) sec ABG pH (7.35-7.45) ABG pCO2 (35-45) mmHg ABG pO2 (83-108) mmHg ABG HCO3 (21-25) mmol/L ABG Total CO2 (19-24) mmol/L ABG O2 Saturation (94-97) % Sodium (137-145) mmol/L Potassium (3.5-5.1) mmol/L Chloride (98-107) mmol/L Carbon Dioxide (22-30) mmol/L Creatinine (0.66-1.25) mg/dL Glucose (74-99) mg/dL POC Glucose (mg/dL) (75-99) mg/dL Plasma Lactic Acid Loco (0.7-2.0) mmol/L Calcium (8.4-10.2) mg/dL Magnesium (1.6-2.3) mg/dL Total Bilirubin (0.2-1.3) mg/dL AST (17-59) U/L ALT (4-49) U/L Ammonia (<30) umol/L Creatine Kinase (55-170) U/L Total Protein (6.3-8.2) g/dL Albumin (3.5-5.0) g/dL Amylase (30-110) U/L Lipase (23-300) U/L Urine Protein 2+ H (Negative) Urine Ketones Trace H (Negative) Urine Blood Moderate H (Negative) Urine Bilirubin 1+ H (Negative) Urine WBC 36 H (0-5) /hpf Urine WBC Clumps Moderate H (None) /hpf Urine Bacteria Rare H (None) /hpf Hyaline Casts 17 H (0-2) /lpf Urine Mucus Rare H (None) /hpf 03/06/20 03/06/20 03/06/20 Range/Units 11:38 11:38 13:29 RBC (4.30-5.90) m/uL Hgb (13.0-17.5) gm/dL Hct (39.0-53.0) % MCV (80.0-100.0) fL MCH (25.0-35.0) pg MCHC (31.0-37.0) g/dL Plt Count (150-450) k/uL Neutrophils # (1.3-7.7) k/uL Neutrophils # (Manual) (1.3-7.7) k/uL Lymphocytes # (1.0-4.8) k/uL Lymphocytes # (Manual) (1.0-4.8) k/uL Myelocytes # (Manual) (0) k/uL Macrocytosis PT (9.0-12.0) sec INR (<1.2) APTT (22.0-30.0) sec ABG pH (7.35-7.45) ABG pCO2 (35-45) mmHg ABG pO2 (83-108) mmHg ABG HCO3 (21-25) mmol/L ABG Total CO2 (19-24) mmol/L ABG O2 Saturation (94-97) % Sodium 131 L (137-145) mmol/L Potassium (3.5-5.1) mmol/L Chloride 89 L (98-107) mmol/L Carbon Dioxide 9 L* (22-30) mmol/L Creatinine 2.21 H (0.66-1.25) mg/dL Glucose 42 L* (74-99) mg/dL POC Glucose (mg/dL) (75-99) mg/dL Plasma Lactic Acid Loco 15.3 H* (0.7-2.0) mmol/L Calcium (8.4-10.2) mg/dL Magnesium 2.6 H (1.6-2.3) mg/dL Total Bilirubin 7.4 H (0.2-1.3) mg/dL AST >97297 H (17-59) U/L ALT 6746 H (4-49) U/L Ammonia 47 H (<30) umol/L Creatine Kinase 365 H (55-170) U/L Total Protein (6.3-8.2) g/dL Albumin (3.5-5.0) g/dL Amylase 195 H (30-110) U/L Lipase 1213 H (23-300) U/L Urine Protein (Negative) Urine Ketones (Negative) Urine Blood (Negative) Urine Bilirubin (Negative) Urine WBC (0-5) /hpf Urine WBC Clumps (None) /hpf Urine Bacteria (None) /hpf Hyaline Casts (0-2) /lpf Urine Mucus (None) /hpf 08/20/20 08/20/20 08/20/20 Range/Units 13:41 15:32 15:59 RBC (4.30-5.90) m/uL Hgb (13.0-17.5) gm/dL Hct (39.0-53.0) % MCV (80.0-100.0) fL MCH (25.0-35.0) pg MCHC (31.0-37.0) g/dL Plt Count (150-450) k/uL Neutrophils # (1.3-7.7) k/uL Neutrophils # (Manual) (1.3-7.7) k/uL Lymphocytes # (1.0-4.8) k/uL Lymphocytes # (Manual) (1.0-4.8) k/uL Myelocytes # (Manual) (0) k/uL Macrocytosis PT (9.0-12.0) sec INR (<1.2) APTT (22.0-30.0) sec ABG pH (7.35-7.45) ABG pCO2 (35-45) mmHg ABG pO2 (83-108) mmHg ABG HCO3 (21-25) mmol/L ABG Total CO2 (19-24) mmol/L ABG O2 Saturation (94-97) % Sodium (137-145) mmol/L Potassium (3.5-5.1) mmol/L Chloride (98-107) mmol/L Carbon Dioxide (22-30) mmol/L Creatinine (0.66-1.25) mg/dL Glucose (74-99) mg/dL POC Glucose (mg/dL) 126 H 126 H (75-99) mg/dL Plasma Lactic Acid Loco 16.1 H* (0.7-2.0) mmol/L Calcium (8.4-10.2) mg/dL Magnesium (1.6-2.3) mg/dL Total Bilirubin (0.2-1.3) mg/dL AST (17-59) U/L ALT (4-49) U/L Ammonia (<30) umol/L Creatine Kinase (55-170) U/L Total Protein (6.3-8.2) g/dL Albumin (3.5-5.0) g/dL Amylase (30-110) U/L Lipase (23-300) U/L Urine Protein (Negative) Urine Ketones (Negative) Urine Blood (Negative) Urine Bilirubin (Negative) Urine WBC (0-5) /hpf Urine WBC Clumps (None) /hpf Urine Bacteria (None) /hpf Hyaline Casts (0-2) /lpf Urine Mucus (None) /hpf 03/06/20 03/06/20 03/06/20 Range/Units 16:43 21:04 21:05 RBC (4.30-5.90) m/uL Hgb (13.0-17.5) gm/dL Hct (39.0-53.0) % MCV (80.0-100.0) fL MCH (25.0-35.0) pg MCHC (31.0-37.0) g/dL Plt Count (150-450) k/uL Neutrophils # (1.3-7.7) k/uL Neutrophils # (Manual) (1.3-7.7) k/uL Lymphocytes # (1.0-4.8) k/uL Lymphocytes # (Manual) (1.0-4.8) k/uL Myelocytes # (Manual) (0) k/uL Macrocytosis PT 23.4 H (9.0-12.0) sec INR 2.4 H (<1.2) APTT 35.3 H (22.0-30.0) sec ABG pH (7.35-7.45) ABG pCO2 (35-45) mmHg ABG pO2 (83-108) mmHg ABG HCO3 (21-25) mmol/L ABG Total CO2 (19-24) mmol/L ABG O2 Saturation (94-97) % Sodium (137-145) mmol/L Potassium (3.5-5.1) mmol/L Chloride (98-107) mmol/L Carbon Dioxide (22-30) mmol/L Creatinine (0.66-1.25) mg/dL Glucose (74-99) mg/dL POC Glucose (mg/dL) 134 H 125 H (75-99) mg/dL Plasma Lactic Acid Loco (0.7-2.0) mmol/L Calcium (8.4-10.2) mg/dL Magnesium (1.6-2.3) mg/dL Total Bilirubin (0.2-1.3) mg/dL AST (17-59) U/L ALT (4-49) U/L Ammonia (<30) umol/L Creatine Kinase (55-170) U/L Total Protein (6.3-8.2) g/dL Albumin (3.5-5.0) g/dL Amylase (30-110) U/L Lipase (23-300) U/L Urine Protein (Negative) Urine Ketones (Negative) Urine Blood (Negative) Urine Bilirubin (Negative) Urine WBC (0-5) /hpf Urine WBC Clumps (None) /hpf Urine Bacteria (None) /hpf Hyaline Casts (0-2) /lpf Urine Mucus (None) /hpf 03/06/20 03/06/20 03/06/20 Range/Units 21:05 21:05 21:05 RBC 2.52 L (4.30-5.90) m/uL Hgb 8.9 L D (13.0-17.5) gm/dL Hct 28.4 L (39.0-53.0) % MCV 112.7 H (80.0-100.0) fL MCH 35.2 H (25.0-35.0) pg MCHC (31.0-37.0) g/dL Plt Count 83 L (150-450) k/uL Neutrophils # 7.8 H (1.3-7.7) k/uL Neutrophils # (Manual) (1.3-7.7) k/uL Lymphocytes # 0.2 L (1.0-4.8) k/uL Lymphocytes # (Manual) (1.0-4.8) k/uL Myelocytes # (Manual) (0) k/uL Macrocytosis Marked A PT (9.0-12.0) sec INR (<1.2) APTT (22.0-30.0) sec ABG pH (7.35-7.45) ABG pCO2 (35-45) mmHg ABG pO2 (83-108) mmHg ABG HCO3 (21-25) mmol/L ABG Total CO2 (19-24) mmol/L ABG O2 Saturation (94-97) % Sodium 132 L (137-145) mmol/L Potassium 5.5 H (3.5-5.1) mmol/L Chloride (98-107) mmol/L Carbon Dioxide 13 L (22-30) mmol/L Creatinine 1.57 H (0.66-1.25) mg/dL Glucose 110 H (74-99) mg/dL POC Glucose (mg/dL) (75-99) mg/dL Plasma Lactic Acid Loco 10.2 H* (0.7-2.0) mmol/L Calcium 6.8 L (8.4-10.2) mg/dL Magnesium (1.6-2.3) mg/dL Total Bilirubin 4.5 H (0.2-1.3) mg/dL AST 9834 H (17-59) U/L ALT 3416 H (4-49) U/L Ammonia (<30) umol/L Creatine Kinase (55-170) U/L Total Protein 5.8 L (6.3-8.2) g/dL Albumin (3.5-5.0) g/dL Amylase (30-110) U/L Lipase (23-300) U/L Urine Protein (Negative) Urine Ketones (Negative) Urine Blood (Negative) Urine Bilirubin (Negative) Urine WBC (0-5) /hpf Urine WBC Clumps (None) /hpf Urine Bacteria (None) /hpf Hyaline Casts (0-2) /lpf Urine Mucus (None) /hpf 03/06/20 03/07/20 03/07/20 Range/Units 21:28 00:33 00:35 RBC (4.30-5.90) m/uL Hgb (13.0-17.5) gm/dL Hct (39.0-53.0) % MCV (80.0-100.0) fL MCH (25.0-35.0) pg MCHC (31.0-37.0) g/dL Plt Count (150-450) k/uL Neutrophils # (1.3-7.7) k/uL Neutrophils # (Manual) (1.3-7.7) k/uL Lymphocytes # (1.0-4.8) k/uL Lymphocytes # (Manual) (1.0-4.8) k/uL Myelocytes # (Manual) (0) k/uL Macrocytosis PT (9.0-12.0) sec INR (<1.2) APTT (22.0-30.0) sec ABG pH 7.06 L* (7.35-7.45) ABG pCO2 48 H (35-45) mmHg ABG pO2 >400 H (83-108) mmHg ABG HCO3 13 L (21-25) mmol/L ABG Total CO2 15 L (19-24) mmol/L ABG O2 Saturation 99.3 H (94-97) % Sodium (137-145) mmol/L Potassium (3.5-5.1) mmol/L Chloride (98-107) mmol/L Carbon Dioxide (22-30) mmol/L Creatinine (0.66-1.25) mg/dL Glucose (74-99) mg/dL POC Glucose (mg/dL) 131 H (75-99) mg/dL Plasma Lactic Acid Loco 7.6 H* (0.7-2.0) mmol/L Calcium (8.4-10.2) mg/dL Magnesium (1.6-2.3) mg/dL Total Bilirubin (0.2-1.3) mg/dL AST (17-59) U/L ALT (4-49) U/L Ammonia (<30) umol/L Creatine Kinase (55-170) U/L Total Protein (6.3-8.2) g/dL Albumin (3.5-5.0) g/dL Amylase (30-110) U/L Lipase (23-300) U/L Urine Protein (Negative) Urine Ketones (Negative) Urine Blood (Negative) Urine Bilirubin (Negative) Urine WBC (0-5) /hpf Urine WBC Clumps (None) /hpf Urine Bacteria (None) /hpf Hyaline Casts (0-2) /lpf Urine Mucus (None) /hpf 03/07/20 03/07/20 03/07/20 Range/Units 04:10 04:10 04:10 RBC 2.65 L (4.30-5.90) m/uL Hgb 9.0 L (13.0-17.5) gm/dL Hct 28.2 L (39.0-53.0) % MCV 106.6 H D (80.0-100.0) fL MCH (25.0-35.0) pg MCHC (31.0-37.0) g/dL Plt Count 70 L (150-450) k/uL Neutrophils # (1.3-7.7) k/uL Neutrophils # (Manual) (1.3-7.7) k/uL Lymphocytes # 0.5 L (1.0-4.8) k/uL Lymphocytes # (Manual) (1.0-4.8) k/uL Myelocytes # (Manual) (0) k/uL Macrocytosis PT (9.0-12.0) sec INR (<1.2) APTT (22.0-30.0) sec ABG pH (7.35-7.45) ABG pCO2 (35-45) mmHg ABG pO2 (83-108) mmHg ABG HCO3 (21-25) mmol/L ABG Total CO2 (19-24) mmol/L ABG O2 Saturation (94-97) % Sodium 134 L (137-145) mmol/L Potassium (3.5-5.1) mmol/L Chloride (98-107) mmol/L Carbon Dioxide (22-30) mmol/L Creatinine 1.96 H (0.66-1.25) mg/dL Glucose 102 H (74-99) mg/dL POC Glucose (mg/dL) (75-99) mg/dL Plasma Lactic Acid Loco 4.5 H* (0.7-2.0) mmol/L Calcium 6.4 L* (8.4-10.2) mg/dL Magnesium (1.6-2.3) mg/dL Total Bilirubin 5.1 H (0.2-1.3) mg/dL AST 22104 H (17-59) U/L ALT 3559 H (4-49) U/L Ammonia 80 H (<30) umol/L Creatine Kinase (55-170) U/L Total Protein 5.2 L (6.3-8.2) g/dL Albumin 3.2 L (3.5-5.0) g/dL Amylase 162 H (30-110) U/L Lipase 1861 H (23-300) U/L Urine Protein (Negative) Urine Ketones (Negative) Urine Blood (Negative) Urine Bilirubin (Negative) Urine WBC (0-5) /hpf Urine WBC Clumps (None) /hpf Urine Bacteria (None) /hpf Hyaline Casts (0-2) /lpf Urine Mucus (None) /hpf 03/07/20 Range/Units 05:15 RBC (4.30-5.90) m/uL Hgb (13.0-17.5) gm/dL Hct (39.0-53.0) % MCV (80.0-100.0) fL MCH (25.0-35.0) pg MCHC (31.0-37.0) g/dL Plt Count (150-450) k/uL Neutrophils # (1.3-7.7) k/uL Neutrophils # (Manual) (1.3-7.7) k/uL Lymphocytes # (1.0-4.8) k/uL Lymphocytes # (Manual) (1.0-4.8) k/uL Myelocytes # (Manual) (0) k/uL Macrocytosis PT (9.0-12.0) sec INR (<1.2) APTT (22.0-30.0) sec ABG pH (7.35-7.45) ABG pCO2 32 L (35-45) mmHg ABG pO2 241 H (83-108) mmHg ABG HCO3 (21-25) mmol/L ABG Total CO2 (19-24) mmol/L ABG O2 Saturation 99.6 H (94-97) % Sodium (137-145) mmol/L Potassium (3.5-5.1) mmol/L Chloride (98-107) mmol/L Carbon Dioxide (22-30) mmol/L Creatinine (0.66-1.25) mg/dL Glucose (74-99) mg/dL POC Glucose (mg/dL) (75-99) mg/dL Plasma Lactic Acid Loco (0.7-2.0) mmol/L Calcium (8.4-10.2) mg/dL Magnesium (1.6-2.3) mg/dL Total Bilirubin (0.2-1.3) mg/dL AST (17-59) U/L ALT (4-49) U/L Ammonia (<30) umol/L Creatine Kinase (55-170) U/L Total Protein (6.3-8.2) g/dL Albumin (3.5-5.0) g/dL Amylase (30-110) U/L Lipase (23-300) U/L Urine Protein (Negative) Urine Ketones (Negative) Urine Blood (Negative) Urine Bilirubin (Negative) Urine WBC (0-5) /hpf Urine WBC Clumps (None) /hpf Urine Bacteria (None) /hpf Hyaline Casts (0-2) /lpf Urine Mucus (None) /hpf Microbiology - Last 24 Hours (Table) 03/06/20 11:38 Urine Culture - Preliminary Urine,Voided Assessment and Plan Assessment: 1. Postop day 1 for a left femoral cutdown an open thrombectomy, left femoral endarterectomy of the common, superficial and deep femoral arteries with patch angioplasty. Compartment left lower extremity fasciotomy. Right femoral cutdown with open thrombectomy of the right iliac and femoral artery 2. Gricelda to be 3 acute ischemia left lower extremity 3. Chronic left lower extremity arterial disease 4. Metabolic acidosis 5. Alcoholic liver disease 6. Pancreatitis 7. Thrombocytopenia 8. Hypertension 9. Hyperlipidemia 10. ETOH use 11. Tobacco abuse Plan: Continue with ICU management. Daily wet-to-dry dressing change to the left lower extremity fasciotomy site. Re-start patient back on heparin drip. Continue for daily CBC and CMP. Increase IV fluids The above dictated assessment and findings were discussed with Dr. Copeland. The impression and plan of care have been directed as dictated.
[2020-03-07 13:19] LABS: Basophils % (A) 0 %; Eosinophils # (A) 0.1 k/uL (0-0.7); Eosinophils % (A) 2 %; HCT 30.4 % (39.0-53.0); HGB 9.8 gm/dL (13.0-17.5); Lymphocytes # (A) 0.2 k/uL (1.0-4.8); Lymphocytes % (A) 5 %; MCH 34.7 pg (25.0-35.0); MCHC 32.3 g/dL (31.0-37.0); MCV 107.5 fL (80.0-100.0); Macrocytosis Marked; Mean Platelet Volume 9.4; Monocytes # (A) 0.2 k/uL (0-1.0); Monocytes % (A) 4 %; Neutrophils # (A) 4.1 k/uL (1.3-7.7); Neutrophils % (A) 88 %; RBC 2.82 m/uL (4.30-5.90); RDW 14.8 % (11.5-15.5); WBC 4.6 k/uL (3.8-10.6)
[2020-03-07 13:21] LABS: Platelet Count 57 k/uL (150-450)
[2020-03-07 13:33] LABS: INR 3.3 (<1.2); Partial Thromboplastin Time 39.4 sec (22.0-30.0); Prothrombin Time 32.4 sec (9.0-12.0)
[2020-03-07 13:40] LABS: Poikilocytosis (M) Present
--- NOTE | 2020-03-07 14:27 | PN ---
PROGRESS NOTE 69-year-old white male with severe metabolic acidosis due to ischemic leg, acute kidney injury, ischemic left lower extremity, peripheral vascular disease, cirrhosis of the liver, lactic acidosis, alcohol consumption, acute pancreatitis. The patient remains intubated, on full ventilator support. FiO2 50%, tidal vitamin 500, PEEP of 5. LAB: Data reviewed. Hemoglobin went from 16 to 8, most likely due to vascular surgery. Status post left femoral endarterectomy, Copeland, urine is dark and dusky. Platelet count 70,000. Bicarb has been given. BUN is 18, creatinine 1.96, which is improving. Lactic acid down to 4.5 from 16, calcium is being replaced at 6.4, he is getting fluids. Resting comfortably on the vent. CARDIOVASCULAR: S1, S2. Abdomen is soft. He is thin, cachectic. Ammonia level is high at 80. ASSESSMENT: 1. Severe metabolic acidosis due to ischemic legs. 2. Severe sepsis with organ failure. 3. Acute on chronic pancreatitis. 4. Hepatitis, worsening of liver enzymes, possibly due to ischemic injury. 5. Acute kidney injury. 6. Status post left femoral endarterectomy. 7. Acute on chronic pancreatitis. 8. History of alcoholism. 9. History of nicotine addiction. 10.Acute on chronic gastritis. 11.Possible gastrointestinal bleed. 12.Hepatic encephalopathy. 13.Cirrhosis of the liver. 14.Lactic acidosis. Continue on the ventilator. Fluid boluses are being given and he is on bicarb drip, IV antibiotics. He is off heparin, DVT prophylaxis with subcu heparin, IV Protonix. Replace electrolytes. Prognosis extremely guarded. MMODL / IJN: [id number] /
--- NOTE | 2020-03-07 14:46 | CONS ---
CONSULTATION REASON FOR CONSULT: Renal failure. HISTORY OF PRESENT ILLNESS: Patient is a 69-year-old male who was admitted to the hospital with a pain in his left leg, progressively worsening over the last 1-2 days prior to admission. The patient was found to have no pulses in his left foot and he was taken in by vascular surgery to OR yesterday and had thrombectomy with left femoral cutdown. The patient also had a balloon angioplasty of left superficial femoral artery and he also had thrombectomy of the right iliac artery and femoral artery as well. The urine output has been borderline at about 15 mL an hour. Serum creatinine was 2.2 on initial admission down to 1.9 today. Previous creatinine is not available for comparison. The patient has not been hypotensive. Systolic blood pressures have been mostly 120-130 mmHg. The patient was not on any NSAIDs or VELASQUEZ inhibitors or angiotensin receptor blockers prior to admission. PAST MEDICAL HISTORY: Hypertension, neuropathy, dyslipidemia, gastroesophageal reflux disease. PAST SURGICAL HISTORY: EGD, colonoscopy, cataract surgery. SOCIAL HISTORY: Positive for smoking. No history of drug abuse or alcohol abuse. MEDICATIONS: Medications at home prior to admission included iron, Zocor, Neurontin, Norvasc. ALLERGIES: None. EXAMINATION: Patient is currently sedated. He is on the vent. He is stable. Blood pressure was 135/66, heart rate 89 per minute. He is afebrile. Examination of the heart S1, S2. Examination of the lungs, bilateral breath sounds are heard. Abdomen is soft, nontender. Examination of lower extremities shows no evidence of edema. Left foot is cooler to touch than the right foot and leg. TEACHING ASSISTANT exam cannot be performed. LAB: Show sodium 134, potassium 4.8, chloride 101. CO2 is 22, BUN 18, creatinine 1.96, hemoglobin 9.0 g/dL. Lactic acid was 4.5, calcium 6.4. UA shows 2+ protein, trace ketones and moderate blood, WBCs 36. ASSESSMENT: 1. Acute kidney injury, possibly prerenal, currently maintained on IV fluids. The patient may have gone into ATN. His urine output is borderline. Agree with fluid boluses. He did receive IV contrast yesterday. We will continue to monitor for development of contrast nephropathy down the road. Continue to avoid any other nephrotoxic agents and avoid hypotension. UA shows evidence of proteinuria and hematuria. This can be repeated down the road. Patient also has pyuria therefore, he may have an underlying UTI. Urine culture is pending. The patient is maintained on empiric antibiotics. 2. Rule out chronic kidney disease stage 3. However, at this time we do not have previous creatinine available for comparison. 3. Anemia with positive stool for occult blood. Check iron profile. 4. Left leg ischemia, status post thrombectomy and left femoral angioplasty. The patient also had right femoral thrombectomy done yesterday. 5. Ventilator-dependent respiratory failure, currently stable on the vent. 6. History of hypertension. 7. Elevated liver enzymes, mostly associated with release from the muscle and tissue ischemia. There may be an element of shock liver. However, blood pressure is not reported to be significantly low. PLAN: Follow up on urine cultures. Agree with IV fluid and avoid any other nephrotoxic agents. Repeat labs in a.m. Check iron profile. Thank you for this consultation. We will continue to follow the patient with you during his hospitalization. MMODL / IJN: [id number] /
[2020-03-07] MEDS ORDERED: SODIUM CHLORIDE 0.9% 1,000 ML IV ONE (15:50)
[2020-03-07] MEDS: HEPARIN SOD,PORK IN 0.45% NACL 25,000 UNIT in 0.45% NACL 1 250ML.BAG IV SCH (16:08)
[2020-03-07 18:39] LABS: Glucose,Whole Blood 88 mg/dL (75-99)
[2020-03-07 19:31] LABS: Protein, Total 4.5 g/dL (6.2-8.2)
[2020-03-07] MEDS: fentaNYL (PF) 1,000 MCG in SODIUM CHLORIDE 0.9% 80 ML IV SCH (20:04)
[2020-03-07 20:15] LABS: Glucose,Whole Blood 83 mg/dL (75-99)
[2020-03-07] MEDS: LORazepam 2 MG/ML INJ IV PRN (20:33)
[2020-03-07 20:53] LABS: Hepatitis A Antibody IgM Non-Reactive (Non-Reactive); Hepatitis B Core IgM Non-Reactive (Non-Reactive); Hepatitis B Surface Antigen Non-Reactive (Non-Reactive); Hepatitis C IgG Antibody Non-Reactive (Non-Reactive)
[2020-03-07 21:37] LABS: Alpha Fetoprotein, Tumor Mkr <2.5 ng/mL (0.0-7.9)
[2020-03-07 21:53] LABS: Glucose,Whole Blood 77 mg/dL (75-99)
[2020-03-07 22:05] LABS: Basophils % (A) 0 %; Eosinophils # (A) 0.1 k/uL (0-0.7); Eosinophils % (A) 2 %; HCT 32.9 % (39.0-53.0); HGB 10.7 gm/dL (13.0-17.5); Lymphocytes # (A) 0.2 k/uL (1.0-4.8); Lymphocytes % (A) 4 %; MCH 34.6 pg (25.0-35.0); MCHC 32.7 g/dL (31.0-37.0); Macrocytosis Moderate; Mean Platelet Volume 9.9; Monocytes # (A) 0.2 k/uL (0-1.0); Monocytes % (A) 5 %; Neutrophils # (A) 4.4 k/uL (1.3-7.7); Neutrophils % (A) 88 %; RDW 14.5 % (11.5-15.5)
[2020-03-07 22:11] LABS: % Iron Saturation 67.54 (15.00-50.00); Ferritin >16500.0 ng/mL (10.0-291.0); Iron 129 ug/dL (65-175); Total Iron Binding Capacity 191 ug/dL (228-460); Vitamin B12 >4000.0 pg/mL (211-911)
[2020-03-07 22:11] LABS: Platelet Count 50 k/uL (150-450)
--- NOTE | 2020-03-07 22:26 | CONS ---
CONSULTATION DATE OF DICTATION: 03/07/2020 REASON FOR CONSULTATION: Elevated LFTs. HISTORY OF PRESENT ILLNESS: The patient is a 69-year-old white male who was admitted to the intensive care unit yesterday when he presented with left foot ischemia. He was seen by Vascular Surgery and underwent surgery with thrombectomy with balloon angioplasty followed by surgery. Subsequently he was transferred to the intensive care unit and he remains on the vent. Since being in the hospital he was noted to have elevated serum transaminases. The patient apparently has a history of heavy alcohol abuse. No family available at the bedside to provide history. Most of the history was obtained from the patient's medical records. LABORATORY STUDIES: At the time of admission to the hospital, he was noted to have elevated LFTs with serum AST 9834 and serum ALT 3416. Today serum AST is 10,503 and ALT is 3559. T-bilirubin is 5.1 and alkaline phosphatase is 61. He had a liver ultrasound done early this morning that showed evidence of hepatic steatosis. No evidence of biliary ductal dilation. PAST MEDICAL HISTORY: His past medical history is significant for hypertension, hypercholesteremia, heavy alcohol abuse, peripheral neuropathy. PAST SURGICAL HISTORY: Colonoscopy in the past. Recent left foot vascular surgery yesterday. MEDICATIONS: Medications at home include Norvasc, Neurontin, iron sulfate, Zocor. ALLERGIES: NONE. SOCIAL HISTORY: Chronic smoker. Heavy alcohol abuse. FAMILY HISTORY: Unremarkable. REVIEW OF SYSTEMS: Review of systems could not be obtained, as patient was sedated on the vent. PHYSICAL EXAMINATION: Vital signs are stable. Blood pressure is 154/81, pulse rate 81, temperature 98.2. HEENT examination unremarkable. Conjunctivae pink. Sclerae slightly icteric. Oral cavity no lesions. NECK: No JVD. CHEST: Clear to auscultation. HEART: Regular rate and rhythm. ABDOMEN: Slightly distended but liver was palpable 3 cm below the right costal margin. EXTREMITIES: No pedal edema. LABS: Labs at the time of admission to the hospital: WBC 9.9, hemoglobin 16.4, MCV 112, platelets 69. INR was 4.7, AST more than 15,000, ALT 6746, T-bilirubin 7.4, alkaline phosphatase 126. Today AST is down to 10,500, ALT is down to 3500. T-bilirubin is down to 5.1, alkaline phosphatase is normal. Lipase 1861. WBC 4.6, hemoglobin 9.8, platelets 57, MCV 107. INR is 3.3. IMPRESSION: 1. Acute elevation of serum transaminases in this patient who has a history of heavy alcohol abuse. His serum transaminases are more than 10,000, most likely as a result of acute ischemic hepatitis superimposed on chronic underlying alcoholic liver disease. It is likely that patient has underlying alcoholic cirrhosis of the liver which has decompensated with ongoing current medical situation. 2. Coagulopathy secondary to underlying liver disease with acute liver failure. 3. Left foot ischemia, status post evaluation by Vascular Surgery. Patient underwent thrombectomy yesterday. 4. Acute respiratory failure. Remains on the vent, sedated. 5. Mild elevation of BUN and creatinine, which are gradually improving. RECOMMENDATIONS: 1. Obtain hepatitis serologies for A, B and C. 2. Will obtain CMV and EBV viral serologies. 3. Avoid hepatotoxic medications. 4. Maintain hemodynamic stability. 5. Monitor LFTs on a close basis. 6. Overall prognosis is guarded, with advanced liver disease with decompensation. Will follow with you closely. Thank you for this consultation. MMODL / IJN: [id number] /
[2020-03-08] MEDS ORDERED: DEXTROSE 50% SYRINGE 50 ML IVP ONE ×2 (00:20→19:47)
[2020-03-08 00:21] LABS: Glucose,Whole Blood 67 mg/dL (75-99)
[2020-03-08 00:46] LABS: Glucose,Whole Blood 204 mg/dL (75-99)
[2020-03-08] MEDS: LORazepam 2 MG/ML INJ IV PRN ×2 (01:00→20:08)
[2020-03-08] MEDS: SODIUM CHLORIDE 0.9% 1,000 ML IV SCH ×3 (01:00→17:53)
[2020-03-08] MEDS: PIPERACILLIN-TAZOBACTAM 3.375 GM in SODIUM CHLORIDE 0.9% 100 ML IVPB SCH (01:00)
[2020-03-08 03:10] LABS: Glucose,Whole Blood 116 mg/dL (75-99)
[2020-03-08 03:22] LABS: Basophils % (A) 0 %; Eosinophils # (A) 0.1 k/uL (0-0.7); Eosinophils % (A) 2 %; HGB 10.1 gm/dL (13.0-17.5); Lymphocytes # (A) 0.3 k/uL (1.0-4.8); Lymphocytes % (A) 5 %; MCH 34.3 pg (25.0-35.0); MCHC 31.5 g/dL (31.0-37.0); Macrocytosis Marked; Mean Platelet Volume 10.1; Monocytes # (A) 0.3 k/uL (0-1.0); Monocytes % (A) 6 %; Neutrophils # (A) 4.6 k/uL (1.3-7.7); Neutrophils % (A) 86 %; RBC 2.94 m/uL (4.30-5.90); RDW 14.8 % (11.5-15.5); WBC 5.3 k/uL (3.8-10.6)
[2020-03-08 03:35] LABS: MCV 108.8 fL (80.0-100.0)
[2020-03-08 03:36] LABS: Platelet Count 50 k/uL (150-450)
[2020-03-08 04:09] LABS: Albumin 2.3 g/dL (3.5-5.0); Calcium 6.9 mg/dL (8.4-10.2); Potassium 4.1 mmol/L (3.5-5.1); Total Bilirubin 6.4 mg/dL (0.2-1.3); Total Protein 4.2 g/dL (6.3-8.2)
[2020-03-08] MEDS: DEXTROSE 5% IN WATER 1,000 ML with SODIUM BICARB (1 MEQ/ML) 150 ML IV SCH ×2 (04:11→22:59)
[2020-03-08 05:10] LABS: ABG Base Excess -7.5 mmol/L; ABG HCO3 17 mmol/L (21-25); ABG Oxygen Saturation 98.7 % (94-97); ABG PCO2 28 mmHg (35-45); ABG PO2 143 mmHg (83-108); ABG TCO2 18 mmol/L (19-24); Allen Test Performed? Yes; Glucose,Whole Blood 104 mg/dL (75-99)
[2020-03-08] MEDS ORDERED: FUROSEMIDE 10 MG/ML 10 ML VIAL IV STA (06:52)
[2020-03-08] MEDS: THIAMINE 100 MG TAB PO SCH ×2 (06:52→20:08)
--- NOTE | 2020-03-08 07:25 | XR ---
EXAMINATION TYPE: XR chest 1V portable DATE OF EXAM: 03/08/2020 COMPARISON: NONE HISTORY: SOB, Follow Up FINDINGS: Indwelling tubes and catheters are unchanged. Basilar infiltrates and/or atelectasis. Increased slightly. Stable appearance of the cardio-mediastinal structures at this time. Pleural effusion unchanged. IMPRESSION: 1. Basilar infiltrates and/or atelectasis. Increased slightly.
[2020-03-08 08:33] LABS: Glucose,Whole Blood 89 mg/dL (75-99)
[2020-03-08 09:18] LABS: Alpha 1 Antitrypsin 77.6 mg/dL (99.0-242.0)
--- NOTE | 2020-03-08 09:49 | P.PN ---
Subjective Progress Note Date: 03/08/20 Principal diagnosis: This is a 69-year-old male, admitted with left leg pain. Found to have ischemia and underwent surgery including tonsillectomy on the left as well as the right. His creatinine on admission was 2.2 with no previous creatinines available Currently he is intubated, on sodium bicarbonate drip. His blood gas show pH of 7.4 on 40% FiO2 Is on sodium bicarbonate drip and on IV fluids. Vital signs are stable but with pressure is somewhat low in the 90s, urine output is though is low 44 mL the last 24 hours. Objective - Vital Signs Vital signs: Vital Signs Temp 97.9 F 03/08/20 08:00 Pulse 81 03/08/20 08:00 Resp 12 03/08/20 08:00 BP 97/64 03/08/20 08:00 Pulse Ox 100 03/08/20 08:00 Intake & Output 03/07/20 03/08/20 03/08/20 18:59 06:59 18:59 Intake Total 3902.638 2426.918 175 Output Total 538 44 0 Balance 3364.638 2382.918 175 Weight 57.5 kg 64 kg Intake: IV 3615 2400 175 Dextrose 5% in Water 1, 375 325 25 000 ml @ 25 mls/hr IV . Q24H [facility] with Sodium Bicarb (1 Meq/ml) 150 ml Rx#:[id number] Piperacillin-Tazobactam 3 100 125 .375 gm In Sodium Chloride 0.9% 100 ml @ 25 mls/hr IVPB Q8H [facility] Rx#: [id number] Sodium Chloride 0.9% 1, 1640 1950 150 000 ml @ 150 mls/hr IV . Q6H40M [facility] Rx#:[id number] Sodium Chloride 0.9% 1, 1000 000 ml @ 999 mls/hr IV . Q1H1M [facility] Rx#:[id number] Sodium Chloride 0.9% 500 500 ml 500 ml @ 999 mls/hr IV .Q31M [facility] Rx#:[id number] Intake, IV Titration 87.638 26.918 Amount fentaNYL (PF) 1,000 mcg 4.6 In Sodium Chloride 0.9% 80 ml @ Per Protocol IV . Q0M [facility] Rx#:[id number] propofoL 1,000 mg In 87.638 22.318 Empty Bag 1 bag @ Titrate IV .Q0M [facility] Rx#: [id number] Oral 200 Output: Urine 138 44 0 Emesis 400 Other: Voiding Method Indwelling Catheter Indwelling Catheter # Bowel Movements 2 ABP, PAP, CO, CI - Last Documented Arterial Blood Pressure 122/51 On examination he is on the vent sedated HEENT exam no JVP neck is supple pupils are equal Lungs are clear to auscultation fair air entry bilaterally Heart sounds are unremarkable for any murmur rub gallop Abdomen soft nontender. Extremity exam was somewhat bluish blotches Cool to touch. Neurologically obtunded - Labs CBC & Chem 7: 03/08/20 03:10 03/08/20 03:10 Labs: Abnormal Lab Results - Last 24 Hours (Table) 03/07/20 03/07/20 03/07/20 Range/Units 11:51 12:44 12:55 RBC 2.82 L (4.30-5.90) m/uL Hgb 9.8 L (13.0-17.5) gm/dL Hct 30.4 L (39.0-53.0) % MCV 107.5 H (80.0-100.0) fL Plt Count 57 L (150-450) k/uL Lymphocytes # 0.2 L (1.0-4.8) k/uL Macrocytosis Marked A PT (9.0-12.0) sec INR (<1.2) APTT (22.0-30.0) sec ABG pCO2 (35-45) mmHg ABG pO2 (83-108) mmHg ABG HCO3 (21-25) mmol/L ABG Total CO2 (19-24) mmol/L ABG O2 Saturation (94-97) % Sodium (137-145) mmol/L Chloride (98-107) mmol/L Carbon Dioxide (22-30) mmol/L BUN (9-20) mg/dL Creatinine (0.66-1.25) mg/dL Glucose (74-99) mg/dL POC Glucose (mg/dL) 58 L 146 H (75-99) mg/dL Calcium (8.4-10.2) mg/dL TIBC (228-460) ug/dL % Saturation (15.00-50.00) Ferritin (10.0-291.0) ng/mL Total Bilirubin (0.2-1.3) mg/dL AST (17-59) U/L ALT (4-49) U/L Ammonia (<30) umol/L Total Protein (6.3-8.2) g/dL Total Protein (PEP) (6.2-8.2) g/dL Albumin (3.5-5.0) g/dL Ujphw-5-Kvhlvritftz (99.0-242.0) mg/dL Ceruloplasmin (20.0-60.0) mg/dL Vitamin B12 (211-911) pg/mL 03/07/20 03/07/20 03/07/20 Range/Units 12:55 12:55 12:55 RBC (4.30-5.90) m/uL Hgb (13.0-17.5) gm/dL Hct (39.0-53.0) % MCV (80.0-100.0) fL Plt Count (150-450) k/uL Lymphocytes # (1.0-4.8) k/uL Macrocytosis PT 32.4 H (9.0-12.0) sec INR 3.3 H (<1.2) APTT 39.4 H (22.0-30.0) sec ABG pCO2 (35-45) mmHg ABG pO2 (83-108) mmHg ABG HCO3 (21-25) mmol/L ABG Total CO2 (19-24) mmol/L ABG O2 Saturation (94-97) % Sodium (137-145) mmol/L Chloride (98-107) mmol/L Carbon Dioxide (22-30) mmol/L BUN (9-20) mg/dL Creatinine (0.66-1.25) mg/dL Glucose (74-99) mg/dL POC Glucose (mg/dL) (75-99) mg/dL Calcium (8.4-10.2) mg/dL TIBC 191 L (228-460) ug/dL % Saturation 67.54 H (15.00-50.00) Ferritin >53096.0 H (10.0-291.0) ng/mL Total Bilirubin (0.2-1.3) mg/dL AST (17-59) U/L ALT (4-49) U/L Ammonia (<30) umol/L Total Protein (6.3-8.2) g/dL Total Protein (PEP) 4.5 L (6.2-8.2) g/dL Albumin (3.5-5.0) g/dL Kfzup-1-Ljlvpcfrzpn 77.6 L (99.0-242.0) mg/dL Ceruloplasmin 12.0 L (20.0-60.0) mg/dL Vitamin B12 >4000.0 H (211-911) pg/mL 03/07/20 03/07/20 03/07/20 Range/Units 19:11 20:15 21:53 RBC 3.10 L (4.30-5.90) m/uL Hgb 10.7 L (13.0-17.5) gm/dL Hct 32.9 L (39.0-53.0) % MCV 106.0 H (80.0-100.0) fL Plt Count 50 L (150-450) k/uL Lymphocytes # 0.2 L (1.0-4.8) k/uL Macrocytosis PT (9.0-12.0) sec INR (<1.2) APTT 59.8 H (22.0-30.0) sec ABG pCO2 (35-45) mmHg ABG pO2 (83-108) mmHg ABG HCO3 (21-25) mmol/L ABG Total CO2 (19-24) mmol/L ABG O2 Saturation (94-97) % Sodium (137-145) mmol/L Chloride (98-107) mmol/L Carbon Dioxide (22-30) mmol/L BUN (9-20) mg/dL Creatinine (0.66-1.25) mg/dL Glucose (74-99) mg/dL POC Glucose (mg/dL) (75-99) mg/dL Calcium 7.1 L (8.4-10.2) mg/dL TIBC (228-460) ug/dL % Saturation (15.00-50.00) Ferritin (10.0-291.0) ng/mL Total Bilirubin (0.2-1.3) mg/dL AST (17-59) U/L ALT (4-49) U/L Ammonia (<30) umol/L Total Protein (6.3-8.2) g/dL Total Protein (PEP) (6.2-8.2) g/dL Albumin (3.5-5.0) g/dL Vvjkn-7-Ryvuavixium (99.0-242.0) mg/dL Ceruloplasmin (20.0-60.0) mg/dL Vitamin B12 (211-911) pg/mL 03/08/20 03/08/20 03/08/20 Range/Units 00:19 00:44 03:08 RBC (4.30-5.90) m/uL Hgb (13.0-17.5) gm/dL Hct (39.0-53.0) % MCV (80.0-100.0) fL Plt Count (150-450) k/uL Lymphocytes # (1.0-4.8) k/uL Macrocytosis PT (9.0-12.0) sec INR (<1.2) APTT (22.0-30.0) sec ABG pCO2 (35-45) mmHg ABG pO2 (83-108) mmHg ABG HCO3 (21-25) mmol/L ABG Total CO2 (19-24) mmol/L ABG O2 Saturation (94-97) % Sodium (137-145) mmol/L Chloride (98-107) mmol/L Carbon Dioxide (22-30) mmol/L BUN (9-20) mg/dL Creatinine (0.66-1.25) mg/dL Glucose (74-99) mg/dL POC Glucose (mg/dL) 67 L 204 H 116 H (75-99) mg/dL Calcium (8.4-10.2) mg/dL TIBC (228-460) ug/dL % Saturation (15.00-50.00) Ferritin (10.0-291.0) ng/mL Total Bilirubin (0.2-1.3) mg/dL AST (17-59) U/L ALT (4-49) U/L Ammonia (<30) umol/L Total Protein (6.3-8.2) g/dL Total Protein (PEP) (6.2-8.2) g/dL Albumin (3.5-5.0) g/dL Hcmqz-8-Mxixuykhmdy (99.0-242.0) mg/dL Ceruloplasmin (20.0-60.0) mg/dL Vitamin B12 (211-911) pg/mL 03/08/20 03/08/20 03/08/20 Range/Units 03:10 03:10 05:07 RBC 2.94 L (4.30-5.90) m/uL Hgb 10.1 L (13.0-17.5) gm/dL Hct 32.0 L (39.0-53.0) % MCV 108.8 H (80.0-100.0) fL Plt Count 50 L (150-450) k/uL Lymphocytes # 0.3 L (1.0-4.8) k/uL Macrocytosis Marked A PT (9.0-12.0) sec INR (<1.2) APTT (22.0-30.0) sec ABG pCO2 28 L (35-45) mmHg ABG pO2 143 H (83-108) mmHg ABG HCO3 17 L (21-25) mmol/L ABG Total CO2 18 L (19-24) mmol/L ABG O2 Saturation 98.7 H (94-97) % Sodium 134 L (137-145) mmol/L Chloride 109 H (98-107) mmol/L Carbon Dioxide 16 L (22-30) mmol/L BUN 27 H (9-20) mg/dL Creatinine 3.03 H (0.66-1.25) mg/dL Glucose 104 H (74-99) mg/dL POC Glucose (mg/dL) (75-99) mg/dL Calcium 6.9 L (8.4-10.2) mg/dL TIBC (228-460) ug/dL % Saturation (15.00-50.00) Ferritin (10.0-291.0) ng/mL Total Bilirubin 6.4 H (0.2-1.3) mg/dL AST 6886 H (17-59) U/L ALT 2657 H (4-49) U/L Ammonia (<30) umol/L Total Protein 4.2 L (6.3-8.2) g/dL Total Protein (PEP) (6.2-8.2) g/dL Albumin 2.3 L (3.5-5.0) g/dL Ogvwj-5-Prlsspnoluq (99.0-242.0) mg/dL Ceruloplasmin (20.0-60.0) mg/dL Vitamin B12 (211-911) pg/mL 03/08/20 03/08/20 03/08/20 Range/Units 05:07 05:20 07:40 RBC (4.30-5.90) m/uL Hgb (13.0-17.5) gm/dL Hct (39.0-53.0) % MCV (80.0-100.0) fL Plt Count (150-450) k/uL Lymphocytes # (1.0-4.8) k/uL Macrocytosis PT (9.0-12.0) sec INR (<1.2) APTT 43.1 H (22.0-30.0) sec ABG pCO2 (35-45) mmHg ABG pO2 (83-108) mmHg ABG HCO3 (21-25) mmol/L ABG Total CO2 (19-24) mmol/L ABG O2 Saturation (94-97) % Sodium (137-145) mmol/L Chloride (98-107) mmol/L Carbon Dioxide (22-30) mmol/L BUN (9-20) mg/dL Creatinine (0.66-1.25) mg/dL Glucose (74-99) mg/dL POC Glucose (mg/dL) 104 H (75-99) mg/dL Calcium (8.4-10.2) mg/dL TIBC (228-460) ug/dL % Saturation (15.00-50.00) Ferritin (10.0-291.0) ng/mL Total Bilirubin (0.2-1.3) mg/dL AST (17-59) U/L ALT (4-49) U/L Ammonia 46 H (<30) umol/L Total Protein (6.3-8.2) g/dL Total Protein (PEP) (6.2-8.2) g/dL Albumin (3.5-5.0) g/dL Czxqu-1-Jkizzynajcv (99.0-242.0) mg/dL Ceruloplasmin (20.0-60.0) mg/dL Vitamin B12 (211-911) pg/mL Microbiology - Last 24 Hours (Table) 03/06/20 11:38 Urine Culture - Final Urine,Voided 03/06/20 14:22 Blood Culture - Preliminary Blood No Growth after 24 hours Assessment and Plan Assessment: Impression 1. ATN status post's thrombectomy on both legs with dye studies. An aortic will likely need dialysis unless he shows recovery so and. 2. Status post atherectomy on both legs with balloon angioplasty 3. When dependent respiratory failure 4. Mild hypotension 5. His acid base status shows that his severe metabolic acidosis has improved with bicarbonate going up from 13-21 and now down to 17 and this morning His respiratory acidosis is improved from 48-28 pCO2. So currently he has Mauri small element of respiratory alkalosis from the vent and element of metabolic a cidosis from acute kidney injury and possibly lactic acid. 6. Severe liver disease possibly shock liver, as well as history of alcohol intake appears 7. Anemia with hemoglobin was 16, went down to 8.9,'s, to 10.1 Recommendation 1. Continue his bicarbonate drip for right. 2. Probably will need dialysis unless he recovers renal function but as of today. 3. Would defer to the pulmonary and intensive care team regarding his pCO2 being low. 4. If his mean arterial pressure is less than 60 would start him on levo fed
--- NOTE | 2020-03-08 10:03 | P.PN ---
Subjective Progress Note Date: 03/08/20 Patient seen and examined. Postoperative day #2 from open thrombectomy, endarterectomy and stenting. No acute events overnight. Heparin drip was discontinued due to platelets of 50. Minimal urine output Objective - Vital Signs Vital signs: Vital Signs Temp 97.9 F 03/08/20 08:00 Pulse 81 03/08/20 08:00 Resp 12 03/08/20 08:00 BP 97/64 03/08/20 08:00 Pulse Ox 100 03/08/20 08:00 Intake & Output 03/07/20 03/08/20 03/08/20 18:59 06:59 18:59 Intake Total 3902.638 2426.918 175 Output Total 538 44 0 Balance 3364.638 2382.918 175 Weight 57.5 kg 64 kg Intake: IV 3615 2400 175 Dextrose 5% in Water 1, 375 325 25 000 ml @ 25 mls/hr IV . Q24H [facility] with Sodium Bicarb (1 Meq/ml) 150 ml Rx#:[id number] Piperacillin-Tazobactam 3 100 125 .375 gm In Sodium Chloride 0.9% 100 ml @ 25 mls/hr IVPB Q8H [facility] Rx#: [id number] Sodium Chloride 0.9% 1, 1640 1950 150 000 ml @ 150 mls/hr IV . Q6H40M [facility] Rx#:[id number] Sodium Chloride 0.9% 1, 1000 000 ml @ 999 mls/hr IV . Q1H1M [facility] Rx#:[id number] Sodium Chloride 0.9% 500 500 ml 500 ml @ 999 mls/hr IV .Q31M [facility] Rx#:[id number] Intake, IV Titration 87.638 26.918 Amount fentaNYL (PF) 1,000 mcg 4.6 In Sodium Chloride 0.9% 80 ml @ Per Protocol IV . Q0M [facility] Rx#:[id number] propofoL 1,000 mg In 87.638 22.318 Empty Bag 1 bag @ Titrate IV .Q0M [facility] Rx#: [id number] Oral 200 Output: Urine 138 44 0 Emesis 400 Other: Voiding Method Indwelling Catheter Indwelling Catheter # Bowel Movements 2 ABP, PAP, CO, CI - Last Documented Arterial Blood Pressure 122/51 - Exam Bilateral groins clean, dry, intact. No hematoma. Left lower extremity warmer to touch with capillary refill. Some areas of patchy ischemia. Strong mono to biphasic dorsalis pedis. Right lower extremity warm and dry. Weakly biphasic DP and PT on the right - Labs CBC & Chem 7: 03/08/20 03:10 03/08/20 03:10 Labs: Abnormal Lab Results - Last 24 Hours (Table) 03/07/20 03/07/20 03/07/20 Range/Units 11:51 12:44 12:55 RBC 2.82 L (4.30-5.90) m/uL Hgb 9.8 L (13.0-17.5) gm/dL Hct 30.4 L (39.0-53.0) % MCV 107.5 H (80.0-100.0) fL Plt Count 57 L (150-450) k/uL Lymphocytes # 0.2 L (1.0-4.8) k/uL Macrocytosis Marked A PT (9.0-12.0) sec INR (<1.2) APTT (22.0-30.0) sec ABG pCO2 (35-45) mmHg ABG pO2 (83-108) mmHg ABG HCO3 (21-25) mmol/L ABG Total CO2 (19-24) mmol/L ABG O2 Saturation (94-97) % Sodium (137-145) mmol/L Chloride (98-107) mmol/L Carbon Dioxide (22-30) mmol/L BUN (9-20) mg/dL Creatinine (0.66-1.25) mg/dL Glucose (74-99) mg/dL POC Glucose (mg/dL) 58 L 146 H (75-99) mg/dL Calcium (8.4-10.2) mg/dL TIBC (228-460) ug/dL % Saturation (15.00-50.00) Ferritin (10.0-291.0) ng/mL Total Bilirubin (0.2-1.3) mg/dL AST (17-59) U/L ALT (4-49) U/L Ammonia (<30) umol/L Total Protein (6.3-8.2) g/dL Total Protein (PEP) (6.2-8.2) g/dL Albumin (3.5-5.0) g/dL Jpnnx-6-Ozpynucqewe (99.0-242.0) mg/dL Ceruloplasmin (20.0-60.0) mg/dL Vitamin B12 (211-911) pg/mL 03/07/20 03/07/20 03/07/20 Range/Units 12:55 12:55 12:55 RBC (4.30-5.90) m/uL Hgb (13.0-17.5) gm/dL Hct (39.0-53.0) % MCV (80.0-100.0) fL Plt Count (150-450) k/uL Lymphocytes # (1.0-4.8) k/uL Macrocytosis PT 32.4 H (9.0-12.0) sec INR 3.3 H (<1.2) APTT 39.4 H (22.0-30.0) sec ABG pCO2 (35-45) mmHg ABG pO2 (83-108) mmHg ABG HCO3 (21-25) mmol/L ABG Total CO2 (19-24) mmol/L ABG O2 Saturation (94-97) % Sodium (137-145) mmol/L Chloride (98-107) mmol/L Carbon Dioxide (22-30) mmol/L BUN (9-20) mg/dL Creatinine (0.66-1.25) mg/dL Glucose (74-99) mg/dL POC Glucose (mg/dL) (75-99) mg/dL Calcium (8.4-10.2) mg/dL TIBC 191 L (228-460) ug/dL % Saturation 67.54 H (15.00-50.00) Ferritin >07149.0 H (10.0-291.0) ng/mL Total Bilirubin (0.2-1.3) mg/dL AST (17-59) U/L ALT (4-49) U/L Ammonia (<30) umol/L Total Protein (6.3-8.2) g/dL Total Protein (PEP) 4.5 L (6.2-8.2) g/dL Albumin (3.5-5.0) g/dL Wneuw-8-Jerzmmpthak 77.6 L (99.0-242.0) mg/dL Ceruloplasmin 12.0 L (20.0-60.0) mg/dL Vitamin B12 >4000.0 H (211-911) pg/mL 03/07/20 03/07/20 03/07/20 Range/Units 19:11 20:15 21:53 RBC 3.10 L (4.30-5.90) m/uL Hgb 10.7 L (13.0-17.5) gm/dL Hct 32.9 L (39.0-53.0) % MCV 106.0 H (80.0-100.0) fL Plt Count 50 L (150-450) k/uL Lymphocytes # 0.2 L (1.0-4.8) k/uL Macrocytosis PT (9.0-12.0) sec INR (<1.2) APTT 59.8 H (22.0-30.0) sec ABG pCO2 (35-45) mmHg ABG pO2 (83-108) mmHg ABG HCO3 (21-25) mmol/L ABG Total CO2 (19-24) mmol/L ABG O2 Saturation (94-97) % Sodium (137-145) mmol/L Chloride (98-107) mmol/L Carbon Dioxide (22-30) mmol/L BUN (9-20) mg/dL Creatinine (0.66-1.25) mg/dL Glucose (74-99) mg/dL POC Glucose (mg/dL) (75-99) mg/dL Calcium 7.1 L (8.4-10.2) mg/dL TIBC (228-460) ug/dL % Saturation (15.00-50.00) Ferritin (10.0-291.0) ng/mL Total Bilirubin (0.2-1.3) mg/dL AST (17-59) U/L ALT (4-49) U/L Ammonia (<30) umol/L Total Protein (6.3-8.2) g/dL Total Protein (PEP) (6.2-8.2) g/dL Albumin (3.5-5.0) g/dL Wandm-4-Snkkyyaahiq (99.0-242.0) mg/dL Ceruloplasmin (20.0-60.0) mg/dL Vitamin B12 (211-911) pg/mL 03/08/20 03/08/20 03/08/20 Range/Units 00:19 00:44 03:08 RBC (4.30-5.90) m/uL Hgb (13.0-17.5) gm/dL Hct (39.0-53.0) % MCV (80.0-100.0) fL Plt Count (150-450) k/uL Lymphocytes # (1.0-4.8) k/uL Macrocytosis PT (9.0-12.0) sec INR (<1.2) APTT (22.0-30.0) sec ABG pCO2 (35-45) mmHg ABG pO2 (83-108) mmHg ABG HCO3 (21-25) mmol/L ABG Total CO2 (19-24) mmol/L ABG O2 Saturation (94-97) % Sodium (137-145) mmol/L Chloride (98-107) mmol/L Carbon Dioxide (22-30) mmol/L BUN (9-20) mg/dL Creatinine (0.66-1.25) mg/dL Glucose (74-99) mg/dL POC Glucose (mg/dL) 67 L 204 H 116 H (75-99) mg/dL Calcium (8.4-10.2) mg/dL TIBC (228-460) ug/dL % Saturation (15.00-50.00) Ferritin (10.0-291.0) ng/mL Total Bilirubin (0.2-1.3) mg/dL AST (17-59) U/L ALT (4-49) U/L Ammonia (<30) umol/L Total Protein (6.3-8.2) g/dL Total Protein (PEP) (6.2-8.2) g/dL Albumin (3.5-5.0) g/dL Ptqjn-5-Nzpbjdgsjno (99.0-242.0) mg/dL Ceruloplasmin (20.0-60.0) mg/dL Vitamin B12 (211-911) pg/mL 03/08/20 03/08/20 03/08/20 Range/Units 03:10 03:10 05:07 RBC 2.94 L (4.30-5.90) m/uL Hgb 10.1 L (13.0-17.5) gm/dL Hct 32.0 L (39.0-53.0) % MCV 108.8 H (80.0-100.0) fL Plt Count 50 L (150-450) k/uL Lymphocytes # 0.3 L (1.0-4.8) k/uL Macrocytosis Marked A PT (9.0-12.0) sec INR (<1.2) APTT (22.0-30.0) sec ABG pCO2 28 L (35-45) mmHg ABG pO2 143 H (83-108) mmHg ABG HCO3 17 L (21-25) mmol/L ABG Total CO2 18 L (19-24) mmol/L ABG O2 Saturation 98.7 H (94-97) % Sodium 134 L (137-145) mmol/L Chloride 109 H (98-107) mmol/L Carbon Dioxide 16 L (22-30) mmol/L BUN 27 H (9-20) mg/dL Creatinine 3.03 H (0.66-1.25) mg/dL Glucose 104 H (74-99) mg/dL POC Glucose (mg/dL) (75-99) mg/dL Calcium 6.9 L (8.4-10.2) mg/dL TIBC (228-460) ug/dL % Saturation (15.00-50.00) Ferritin (10.0-291.0) ng/mL Total Bilirubin 6.4 H (0.2-1.3) mg/dL AST 6886 H (17-59) U/L ALT 2657 H (4-49) U/L Ammonia (<30) umol/L Total Protein 4.2 L (6.3-8.2) g/dL Total Protein (PEP) (6.2-8.2) g/dL Albumin 2.3 L (3.5-5.0) g/dL Dxuaw-9-Ficmbmgypqi (99.0-242.0) mg/dL Ceruloplasmin (20.0-60.0) mg/dL Vitamin B12 (211-911) pg/mL 03/08/20 03/08/20 03/08/20 Range/Units 05:07 05:20 07:40 RBC (4.30-5.90) m/uL Hgb (13.0-17.5) gm/dL Hct (39.0-53.0) % MCV (80.0-100.0) fL Plt Count (150-450) k/uL Lymphocytes # (1.0-4.8) k/uL Macrocytosis PT (9.0-12.0) sec INR (<1.2) APTT 43.1 H (22.0-30.0) sec ABG pCO2 (35-45) mmHg ABG pO2 (83-108) mmHg ABG HCO3 (21-25) mmol/L ABG Total CO2 (19-24) mmol/L ABG O2 Saturation (94-97) % Sodium (137-145) mmol/L Chloride (98-107) mmol/L Carbon Dioxide (22-30) mmol/L BUN (9-20) mg/dL Creatinine (0.66-1.25) mg/dL Glucose (74-99) mg/dL POC Glucose (mg/dL) 104 H (75-99) mg/dL Calcium (8.4-10.2) mg/dL TIBC (228-460) ug/dL % Saturation (15.00-50.00) Ferritin (10.0-291.0) ng/mL Total Bilirubin (0.2-1.3) mg/dL AST (17-59) U/L ALT (4-49) U/L Ammonia 46 H (<30) umol/L Total Protein (6.3-8.2) g/dL Total Protein (PEP) (6.2-8.2) g/dL Albumin (3.5-5.0) g/dL Mnzxc-9-Dgsyzpnjrjs (99.0-242.0) mg/dL Ceruloplasmin (20.0-60.0) mg/dL Vitamin B12 (211-911) pg/mL Microbiology - Last 24 Hours (Table) 03/06/20 11:38 Urine Culture - Final Urine,Voided 03/06/20 14:22 Blood Culture - Preliminary Blood No Growth after 24 hours Assessment and Plan Assessment: 1. Postop day 2 for a left femoral cutdown an open thrombectomy, left femoral endarterectomy of the common, superficial and deep femoral arteries with patch angioplasty. Compartment left lower extremity fasciotomy. Right femoral cutdown with open thrombectomy of the right iliac and femoral artery 2. Dunn 2b/3 acute ischemia left lower extremity 3. Chronic left lower extremity arterial disease 4. Metabolic acidosis 5. Alcoholic liver disease 6. Pancreatitis 7. Thrombocytopenia 8. Hypertension 9. Hyperlipidemia 10. ETOH use 11. Tobacco abuse Plan: At this time continue medical management and ICU care. Uncertain why Zosyn was initiated in the first place, no current surgical indications for antibiotic. No signs of infection. Continue aggressive resuscitation. Appreciate nephrology recks, may need dialysis catheter placement. We'll continue to monitor
[2020-03-08] MEDS: LACTULOSE 20 GM/30 ML CUP PO SCH ×2 (10:29→20:08)
[2020-03-08] MEDS: CHLORHEXIDINE GLUCONATE 15 ML CUP MUCOUS MEM SCH ×2 (10:30→20:08)
[2020-03-08] MEDS: atenoloL 25 MG TAB PO SCH ×2 (10:30→20:08)
[2020-03-08] MEDS: PANTOPRAZOLE 40 MG/10 ML VIAL IVP SCH ×2 (10:30→20:08)
--- NOTE | 2020-03-08 10:33 | P.PN ---
Subjective Progress Note Date: 03/08/20 (Critical care time spent 35 minutes) Principal diagnosis: Multiorgan failure syndrome Severe metabolic acidosis due to ischemic leg Acute kidney injury with an urea Acute liver injury By basilar atelectasis and small pleural effusion Ischemic left lower extremity Peripheral vascular disease Cirrhosis of the liver Lactic acidosis Extensive history of alcohol consumption Acute pancreatitis 03/08/2020, patient seen eval reexamined during the rounds remains sedated with fentanyl drip, propofol has been discontinued due to ongoing pancreatitis, patient also has acute liver injury, noted platelet count to be low, patient hasn't 2-3 large lower GI bleed episodes, hemoglobin however is stable, coffee- ground NG aspirate has been noted, hemodynamically stable, on ventilator support for, no evidence of infection is present we'll DC Zosyn, ventilator settings include assist control of 14 tidal volume 500+5 of PEEP, 40% oxygen, GI services as well as the nephrology following the patient, we'll continue bicarb drip, patient is off of heparin due to ongoing GI bleed, we'll taper down the sedation to observe mental status, patient has developed multiorgan failure prognosis is poor however continue to provide supportive care 03/07/2020, patient seen and evaluated examined during the round labs reviewed medications reviewed care plan discussed, critical care time spent 35 minutes, patient remains intubated on full ventilator support currently he is on FiO2 of 50%, tidal volume of 500, PEEP of 5, his sed rate is 14 breathing about 16 times a minute, he is on propofol sedated adequately, labs reviewed medications reviewed, his chest x-ray showed minimal effusion otherwise unremarkable ET tube is stable, patient has NG tube, NG tube aspirate is noted to be heme positive, patient has a significant drop in hemoglobin from 16 to 8 now, which is likely due to vascular surgery, patient is status post day #1 of left femoral endarterectomy by Dr. Copeland's for detail. Please refer to the operative note, also noted urine to be very dark and dusky, with minimal output, white cell count remained stable hemoglobin latest check was 9, platelet count is 70,000, after bicarb drip the bicarb in the blood is up to 21, patient has history of base deficit of -4, BUN/creatinine slightly improved to 18 and 1.96, lactic acid down to 4.5, calcium is 6.4 which is being replaced, a mildly is alive status 162/1861, ammonia is a 50, will give fluid bolus of 500 mL increase fluids to 1 50 mL an hour, decreased the bicarb drip to 30, need to stop propofol drip due to pancreatitis some other means will be considered for sedation, patient remains on IV antibiotics with Zosyn, the left leg appearance slightly better and improved from pedal white yesterday to normal color now however dorsalis pedis and posterior. We'll are still negative with Doppler. Refill slightly i mproved compared to yesterday exam, This is a 72-year-old male came into the hospital with left leg pain and started from the groin, patient has been having ongoing pain for the last 2 days, also have pale discoloration patient has a significant history of alcohol consumption as well as vascular disease he is a resident of [facility], he is accompanied by his brother data predominantly has been obtained from him, Review of the data revealed that he has history of hyperlipidemia, hypertension, alcohol abuse who states he drinks a 30 pack a week and has been drinking for greater than 30 years, and is a pack-a-day smoker for greater than 50 years. The patient states he has been having bilateral lower extremity pain for at least the last year, however starting today he had worse pain in the left lower extremity. States that he saw Dr. Fitch in the office yesterday. In February 2019 he had a arterial study of the bilateral lower extremity showing moderate left fem-pop disease with possible iliac component. The patient denies any shortness of breath or chest pain. He is able to ambulate, however does have pain with ambulation. He also has multiple scratches and scabbing on bilateral lower extremities left greater than right. Patient's friend at the bedside states that he itches his legs a lot, which causes the scabbing. The patient is alert and answers his questions appropriately, he is able to follow commands, states he knows he is at [facility], states his birthday and name, however was confused on the current year when asked. Admission labs show WBC 9.9, hemoglobin 16.4, hematocrit 53.5, platelets 69,000 PT 47.2, INR 4.7, sodium 131, potassium 4.9, chloride 89, carbon dioxide 9, BUNs 16, creatinine 2.21, glucose 42, plasma lactic acid 15.3 magnesium 2.6, total bili 7.4, alk phos 126, AST greater than 15,000, ALTs 6746, ammonia 47, creatinine kidneys 365, amylase 195, lipase 1213. Vascular surgery have evaluated this patient, patient is being taken to the OR with FFP risk have been discussed with the patient's brother and they appeared t o understand as mentioned by vascular surgery Objective - Vital Signs Vital signs: Vital Signs Temp 97.9 F 03/08/20 08:00 Pulse 81 03/08/20 10:00 Resp 14 03/08/20 10:00 BP 90/54 03/08/20 10:00 Pulse Ox 100 03/08/20 10:00 Intake & Output 03/07/20 03/08/20 03/08/20 18:59 06:59 18:59 Intake Total 3902.638 2426.918 525 Output Total 538 44 0 Balance 3364.638 2382.918 525 Weight 57.5 kg 64 kg Intake: IV 3615 2400 525 Dextrose 5% in Water 1, 375 325 75 000 ml @ 25 mls/hr IV . Q24H [facility] with Sodium Bicarb (1 Meq/ml) 150 ml Rx#:[id number] Piperacillin-Tazobactam 3 100 125 .375 gm In Sodium Chloride 0.9% 100 ml @ 25 mls/hr IVPB Q8H [facility] Rx#: [id number] Sodium Chloride 0.9% 1, 1640 1950 450 000 ml @ 150 mls/hr IV . Q6H40M [facility] Rx#:[id number] Sodium Chloride 0.9% 1, 1000 000 ml @ 999 mls/hr IV . Q1H1M [facility] Rx#:[id number] Sodium Chloride 0.9% 500 500 ml 500 ml @ 999 mls/hr IV .Q31M [facility] Rx#:[id number] Intake, IV Titration 87.638 26.918 Amount fentaNYL (PF) 1,000 mcg 4.6 In Sodium Chloride 0.9% 80 ml @ Per Protocol IV . Q0M [facility] Rx#:[id number] propofoL 1,000 mg In 87.638 22.318 Empty Bag 1 bag @ Titrate IV .Q0M [facility] Rx#: [id number] Oral 200 Output: Urine 138 44 0 Emesis 400 Other: Voiding Method Indwelling Catheter Indwelling Catheter # Bowel Movements 2 ABP, PAP, CO, CI - Last Documented Arterial Blood Pressure 124/53 - Exam - Constitutional General appearance: disheveled, mild distress, thin, sedated with full ventilator support - EENT Eyes: EOMI, PERRLA ENT: hard of hearing Ears: bilateral: normal - Neck Carotids: bilateral: upstroke normal Thyroid: bilateral: normal size - Respiratory Respiratory: bilateral: CTA - Cardiovascular Rhythm: regular Heart sounds: normal: S1, S2 - Gastrointestinal General gastrointestinal: hyperactive bowel sounds - Neurologic Neurologic: Sedated on full ventilator support - Musculoskeletal Musculoskeletal: generalized weakness Normal color now however left lower extremity with dopplerable pulses as noted by vascular surgery involving dorsalis pedis and posterior tibial - Labs CBC & Chem 7: 03/08/20 03:10 03/08/20 03:10 Labs: Abnormal Lab Results - Last 24 Hours (Table) 03/07/20 03/07/20 03/07/20 Range/Units 11:51 12:44 12:55 RBC 2.82 L (4.30-5.90) m/uL Hgb 9.8 L (13.0-17.5) gm/dL Hct 30.4 L (39.0-53.0) % MCV 107.5 H (80.0-100.0) fL Plt Count 57 L (150-450) k/uL Lymphocytes # 0.2 L (1.0-4.8) k/uL Macrocytosis Marked A PT (9.0-12.0) sec INR (<1.2) APTT (22.0-30.0) sec ABG pCO2 (35-45) mmHg ABG pO2 (83-108) mmHg ABG HCO3 (21-25) mmol/L ABG Total CO2 (19-24) mmol/L ABG O2 Saturation (94-97) % Sodium (137-145) mmol/L Chloride (98-107) mmol/L Carbon Dioxide (22-30) mmol/L BUN (9-20) mg/dL Creatinine (0.66-1.25) mg/dL Glucose (74-99) mg/dL POC Glucose (mg/dL) 58 L 146 H (75-99) mg/dL Calcium (8.4-10.2) mg/dL TIBC (228-460) ug/dL % Saturation (15.00-50.00) Ferritin (10.0-291.0) ng/mL Total Bilirubin (0.2-1.3) mg/dL AST (17-59) U/L ALT (4-49) U/L Ammonia (<30) umol/L Total Protein (6.3-8.2) g/dL Total Protein (PEP) (6.2-8.2) g/dL Albumin (3.5-5.0) g/dL Oxwxi-6-Fvqbedjujii (99.0-242.0) mg/dL Ceruloplasmin (20.0-60.0) mg/dL Vitamin B12 (211-911) pg/mL 03/07/20 03/07/20 03/07/20 Range/Units 12:55 12:55 12:55 RBC (4.30-5.90) m/uL Hgb (13.0-17.5) gm/dL Hct (39.0-53.0) % MCV (80.0-100.0) fL Plt Count (150-450) k/uL Lymphocytes # (1.0-4.8) k/uL Macrocytosis PT 32.4 H (9.0-12.0) sec INR 3.3 H (<1.2) APTT 39.4 H (22.0-30.0) sec ABG pCO2 (35-45) mmHg ABG pO2 (83-108) mmHg ABG HCO3 (21-25) mmol/L ABG Total CO2 (19-24) mmol/L ABG O2 Saturation (94-97) % Sodium (137-145) mmol/L Chloride (98-107) mmol/L Carbon Dioxide (22-30) mmol/L BUN (9-20) mg/dL Creatinine (0.66-1.25) mg/dL Glucose (74-99) mg/dL POC Glucose (mg/dL) (75-99) mg/dL Calcium (8.4-10.2) mg/dL TIBC 191 L (228-460) ug/dL % Saturation 67.54 H (15.00-50.00) Ferritin >68524.0 H (10.0-291.0) ng/mL Total Bilirubin (0.2-1.3) mg/dL AST (17-59) U/L ALT (4-49) U/L Ammonia (<30) umol/L Total Protein (6.3-8.2) g/dL Total Protein (PEP) 4.5 L (6.2-8.2) g/dL Albumin (3.5-5.0) g/dL Nkfty-0-Joadmibrvhx 77.6 L (99.0-242.0) mg/dL Ceruloplasmin 12.0 L (20.0-60.0) mg/dL Vitamin B12 >4000.0 H (211-911) pg/mL 03/07/20 03/07/20 03/07/20 Range/Units 19:11 20:15 21:53 RBC 3.10 L (4.30-5.90) m/uL Hgb 10.7 L (13.0-17.5) gm/dL Hct 32.9 L (39.0-53.0) % MCV 106.0 H (80.0-100.0) fL Plt Count 50 L (150-450) k/uL Lymphocytes # 0.2 L (1.0-4.8) k/uL Macrocytosis PT (9.0-12.0) sec INR (<1.2) APTT 59.8 H (22.0-30.0) sec ABG pCO2 (35-45) mmHg ABG pO2 (83-108) mmHg ABG HCO3 (21-25) mmol/L ABG Total CO2 (19-24) mmol/L ABG O2 Saturation (94-97) % Sodium (137-145) mmol/L Chloride (98-107) mmol/L Carbon Dioxide (22-30) mmol/L BUN (9-20) mg/dL Creatinine (0.66-1.25) mg/dL Glucose (74-99) mg/dL POC Glucose (mg/dL) (75-99) mg/dL Calcium 7.1 L (8.4-10.2) mg/dL TIBC (228-460) ug/dL % Saturation (15.00-50.00) Ferritin (10.0-291.0) ng/mL Total Bilirubin (0.2-1.3) mg/dL AST (17-59) U/L ALT (4-49) U/L Ammonia (<30) umol/L Total Protein (6.3-8.2) g/dL Total Protein (PEP) (6.2-8.2) g/dL Albumin (3.5-5.0) g/dL Njphq-8-Txhyhxolsvv (99.0-242.0) mg/dL Ceruloplasmin (20.0-60.0) mg/dL Vitamin B12 (211-911) pg/mL 03/08/20 03/08/20 03/08/20 Range/Units 00:19 00:44 03:08 RBC (4.30-5.90) m/uL Hgb (13.0-17.5) gm/dL Hct (39.0-53.0) % MCV (80.0-100.0) fL Plt Count (150-450) k/uL Lymphocytes # (1.0-4.8) k/uL Macrocytosis PT (9.0-12.0) sec INR (<1.2) APTT (22.0-30.0) sec ABG pCO2 (35-45) mmHg ABG pO2 (83-108) mmHg ABG HCO3 (21-25) mmol/L ABG Total CO2 (19-24) mmol/L ABG O2 Saturation (94-97) % Sodium (137-145) mmol/L Chloride (98-107) mmol/L Carbon Dioxide (22-30) mmol/L BUN (9-20) mg/dL Creatinine (0.66-1.25) mg/dL Glucose (74-99) mg/dL POC Glucose (mg/dL) 67 L 204 H 116 H (75-99) mg/dL Calcium (8.4-10.2) mg/dL TIBC (228-460) ug/dL % Saturation (15.00-50.00) Ferritin (10.0-291.0) ng/mL Total Bilirubin (0.2-1.3) mg/dL AST (17-59) U/L ALT (4-49) U/L Ammonia (<30) umol/L Total Protein (6.3-8.2) g/dL Total Protein (PEP) (6.2-8.2) g/dL Albumin (3.5-5.0) g/dL Ubvdj-0-Aqhvsticnfq (99.0-242.0) mg/dL Ceruloplasmin (20.0-60.0) mg/dL Vitamin B12 (211-911) pg/mL 03/08/20 03/08/20 03/08/20 Range/Units 03:10 03:10 05:07 RBC 2.94 L (4.30-5.90) m/uL Hgb 10.1 L (13.0-17.5) gm/dL Hct 32.0 L (39.0-53.0) % MCV 108.8 H (80.0-100.0) fL Plt Count 50 L (150-450) k/uL Lymphocytes # 0.3 L (1.0-4.8) k/uL Macrocytosis Marked A PT (9.0-12.0) sec INR (<1.2) APTT (22.0-30.0) sec ABG pCO2 28 L (35-45) mmHg ABG pO2 143 H (83-108) mmHg ABG HCO3 17 L (21-25) mmol/L ABG Total CO2 18 L (19-24) mmol/L ABG O2 Saturation 98.7 H (94-97) % Sodium 134 L (137-145) mmol/L Chloride 109 H (98-107) mmol/L Carbon Dioxide 16 L (22-30) mmol/L BUN 27 H (9-20) mg/dL Creatinine 3.03 H (0.66-1.25) mg/dL Glucose 104 H (74-99) mg/dL POC Glucose (mg/dL) (75-99) mg/dL Calcium 6.9 L (8.4-10.2) mg/dL TIBC (228-460) ug/dL % Saturation (15.00-50.00) Ferritin (10.0-291.0) ng/mL Total Bilirubin 6.4 H (0.2-1.3) mg/dL AST 6886 H (17-59) U/L ALT 2657 H (4-49) U/L Ammonia (<30) umol/L Total Protein 4.2 L (6.3-8.2) g/dL Total Protein (PEP) (6.2-8.2) g/dL Albumin 2.3 L (3.5-5.0) g/dL Rclff-6-Tmunxekozrx (99.0-242.0) mg/dL Ceruloplasmin (20.0-60.0) mg/dL Vitamin B12 (211-911) pg/mL 03/08/20 03/08/20 03/08/20 Range/Units 05:07 05:20 07:40 RBC (4.30-5.90) m/uL Hgb (13.0-17.5) gm/dL Hct (39.0-53.0) % MCV (80.0-100.0) fL Plt Count (150-450) k/uL Lymphocytes # (1.0-4.8) k/uL Macrocytosis PT (9.0-12.0) sec INR (<1.2) APTT 43.1 H (22.0-30.0) sec ABG pCO2 (35-45) mmHg ABG pO2 (83-108) mmHg ABG HCO3 (21-25) mmol/L ABG Total CO2 (19-24) mmol/L ABG O2 Saturation (94-97) % Sodium (137-145) mmol/L Chloride (98-107) mmol/L Carbon Dioxide (22-30) mmol/L BUN (9-20) mg/dL Creatinine (0.66-1.25) mg/dL Glucose (74-99) mg/dL POC Glucose (mg/dL) 104 H (75-99) mg/dL Calcium (8.4-10.2) mg/dL TIBC (228-460) ug/dL % Saturation (15.00-50.00) Ferritin (10.0-291.0) ng/mL Total Bilirubin (0.2-1.3) mg/dL AST (17-59) U/L ALT (4-49) U/L Ammonia 46 H (<30) umol/L Total Protein (6.3-8.2) g/dL Total Protein (PEP) (6.2-8.2) g/dL Albumin (3.5-5.0) g/dL Yaqdf-7-Ufeudhzdhse (99.0-242.0) mg/dL Ceruloplasmin (20.0-60.0) mg/dL Vitamin B12 (211-911) pg/mL Microbiology - Last 24 Hours (Table) 03/06/20 11:38 Urine Culture - Final Urine,Voided 03/06/20 14:22 Blood Culture - Preliminary Blood No Growth after 24 hours Assessment and Plan Assessment: GI bleed Thrombocytopenia Acute respiratory failure due to multiorgan failure Severe metabolic acidosis due to ischemic leg Severe sepsis with multiorgan failure including liver pancreatitis renal hemo poietic system gastrointestinal Acute on chronic pancreatitis Hepatitis worsening of liver enzymes likely related to ischemic injury Acute kidney injury Ischemic left lower extremity status post left femoral endarterectomy Acute on chronic pancreatitis Acute on chronic gastritis with heme positive gastric aspirate Acute ischemic liver injury Peripheral vascular disease Cirrhosis of the liver Lactic acidosis Extensive history of alcohol consumption Plan: Continue vent support titrate oxygen to 40% Continue fentanyl drip and use when necessary Ativan Patient is still volume depleted continue IV fluids and bicarb Continue bicarb drip however rate reduced to 30 mL an hour Observe off of IV antibiotics Patient is off of heparin, DVT prophylaxis will be started with subcu heparin now Protonix 40 mg IV every 12, Monitor renal functions and urine output closely Replace electrolytes including calcium IV calcium chloride Further recommendations pending plan of care as per clinical response of the physicians Time with Patient: Greater than 30
[2020-03-08] MEDS: HEPARIN SOD,PORK IN 0.45% NACL 25,000 UNIT in 0.45% NACL 1 250ML.BAG IV SCH (12:38)
[2020-03-08 12:54] LABS: Glucose,Whole Blood 89 mg/dL (75-99)
[2020-03-08 12:54] LABS: Glucose,Whole Blood 64 mg/dL (75-99)
--- NOTE | 2020-03-08 13:19 | PN ---
PROGRESS NOTE DATE OF SERVICE: 03/08/2020 INTERVAL HISTORY: Patient is a 69-year-old pleasant white male admitted to the hospital with ischemic of left lower extremity, history of heavy alcohol abuse. He underwent surgery with thrombectomy by Dr. Copeland 2 days ago following which she remains on the vent. Presently, sedated and paralyzed. As per the nursing staff, he was on IV heparin drip following the surgery. Last night he developed 3 bowel bloody bowel movements following there was some maroon-colored stool from the NG tube. The heparin drip was stopped last night. Hemoglobin was 10.1 g/dL today. He also aneuric during the night. BUN and creatinine have increased to 27 and 3.03. PHYSICAL EXAMINATION: Intubated, sedated, on mechanical ventilation. Vital show a blood pressure of 107/47, pulse 86, temperature 98. HEENT: Examination unremarkable. The conjunctivae are pink, sclerae icteric. NG tube has maroon-colored blood. CHEST: Clear to auscultation. HEART: Regular rate and rhythm. ABDOMEN: Slightly distended but there was no free fluid noted. It was tympanic. EXTREMITIES: No pedal edema. Left lower extremity oozing from the surgical site. LABS: From today WBC 5.3, hemoglobin 10.1, platelets 50,000. PTT 43.1 yesterday, PT was 3.3, sodium 134, potassium 4.1, chloride 109, CO2 16 BUN 27, creatinine 3.03. AST 6866, ALT 2657, T bilirubin 6.4, alkaline phosphatase 40. Hepatitis serologies for A, B and C were negative. IMPRESSION: 1. Acute respiratory failure, sedated and mechanically ventilated. 2. Active upper gastrointestinal bleed started last night. He had 3 bloody bowel movements and blood in the NG tube. The IV heparin has been on hold. He remains coagulopathic secondary to underlying liver disease. Presently on Protonix 20 mg q.12 hours. Most likely dealing with an upper GI source of bleeding, probably related to stress-induced gastritis or portal hypertensive gastropathy. Doubt esophageal variceal bleeding. 3. History of alcoholic liver disease with elevated LFTs and serum transaminases have been significantly elevated, which most likely is indicative of acute ischemic hepatitis superimposed on chronic liver disease with possible underlying cirrhosis of the liver. 4. Coagulopathy secondary to underlying chronic liver disease. 5. Ischemia of the left leg status post surgery by Dr. Copeland. He was on IV heparin, currently on hold. RECOMMENDATIONS: 1. Transfuse 2 units of FFP. 2. Increase the Protonix to 40 mg twice daily. 3. Repeat PT/INR as well as PTT in 6 hours. 4. Monitor CBC every 6 hours. 5. We will follow with you closely. Thank you for this consultation. MMPAOLOL / DANIAN: [id number] /
[2020-03-08 15:16] LABS: HCT 27.6 % (39.0-53.0); HGB 9.1 gm/dL (13.0-17.5); MCHC 32.9 g/dL (31.0-37.0); MCV 106.3 fL (80.0-100.0); Macrocytosis Moderate; Mean Platelet Volume 11.1; RBC 2.59 m/uL (4.30-5.90); RDW 14.8 % (11.5-15.5); WBC 3.6 k/uL (3.8-10.6)
[2020-03-08 15:20] LABS: Platelet Count 47 k/uL (150-450)
--- NOTE | 2020-03-08 15:31 | PN ---
PROGRESS NOTE This is a 69-year-old white male with organ failure syndrome, severe metabolic acidosis secondary to ischemic leg, acute kidney injury, acute liver injury, alcoholic cirrhosis, acute ischemic lower extremity, status post PTCA, PAD, cirrhosis of liver, lactic acidosis, alcohol consumption. Remains on the ventilator. Discussed case with Dr. Kolb, boom truck driver. He had 2 and 3 large bowel GI bleed episodes. Hemoglobin is stable. Coffee-ground NG aspirate is stable. He remains on the ventilator. He is stable on the vent. He is thin and cachectic. Status post left femoral endarterectomy. Cardiovascular S1-S2. Lungs decreased breath sounds. Hematology negative Homans. Psych, is resting comfortably on the vent. His leg looks better with more coloration in the left leg. Labs were reviewed. BUN of 27, creatinine 3.13, hemoglobin is 10.1, white count 5.3. Alpha 1 antitrypsin level is 77. Hemoglobin is 10.7. Albumin is 2.3, total bilirubin 6.4, calcium 6 9. ASSESSMENT: 1. Gastrointestinal bleed. 2. Thrombocytopenia. 3. Acute respiratory failure. 4. Multiorgan failure. 5. Severe metabolic acidosis. 6. Severe sepsis with multiorgan failure. 7. Pancreatitis. 8. Hepatitis. 9. Worsening liver enzymes due to ischemic injury. 10.Acute kidney injury. 11.Chronic gastritis. 12.Peripheral vascular disease. 13.Cirrhosis of the liver. 14.Lactic acidosis. 15.Extensive history of alcohol consumption. 16.Ischemic left lower extremity, status post left femoral endarterectomy. 17.Acute on chronic pancreatitis. Continue vent support. Titrate oxygen to 40%. Continue vent. We will treat for an alcohol withdrawal with bicarb drip. He is on subcu heparin, Protonix. Monitor renal functions, urine output, electrolytes, replace calcium with IV calcium gluconate. Prognosis extremely guarded. Discussed case with Dr. Kolb. ICU time 30 minutes. MMODL / IJN: [id number] /
[2020-03-08 15:38] LABS: INR 2.5 (<1.2); Partial Thromboplastin Time 34.7 sec (22.0-30.0)
[2020-03-08 17:50] LABS: Glucose,Whole Blood 75 mg/dL (75-99)
[2020-03-08 17:51] LABS: Hepatitis B Surface AB- Quant 88.7 mIU/mL; Hepatitis B Surface Antibody Reactive (Non-Reactive); Hepatitis B Surface Antigen Non-Reactive (Non-Reactive)
[2020-03-08] MEDS: fentaNYL (PF) 1,000 MCG in SODIUM CHLORIDE 0.9% 80 ML IV SCH (17:57)
[2020-03-08 19:46] LABS: Glucose,Whole Blood 70 mg/dL (75-99)
[2020-03-08 23:57] LABS: Glucose,Whole Blood 92 mg/dL (75-99)
[2020-03-09] MEDS: SODIUM CHLORIDE 0.9% 1,000 ML IV SCH ×4 (00:07→17:52)
[2020-03-09] MEDS: LORazepam 2 MG/ML INJ IV PRN ×2 (00:45→02:40)
[2020-03-09 02:24] LABS: Glucose,Whole Blood 83 mg/dL (75-99)
[2020-03-09 03:53] LABS: Glucose,Whole Blood 98 mg/dL (75-99)
[2020-03-09 04:20] LABS: Calcium 6.5 mg/dL (8.4-10.2); Magnesium 1.9 mg/dL (1.6-2.3); Potassium 3.7 mmol/L (3.5-5.1); Total Bilirubin 7.5 mg/dL (0.2-1.3)
[2020-03-09 04:31] LABS: HCT 28.5 % (39.0-53.0); HGB 9.1 gm/dL (13.0-17.5); MCHC 31.8 g/dL (31.0-37.0); MCV 106.9 fL (80.0-100.0); Macrocytosis Moderate; Mean Platelet Volume 10.7; RBC 2.67 m/uL (4.30-5.90); RDW 14.8 % (11.5-15.5); WBC 4.3 k/uL (3.8-10.6)
[2020-03-09 04:32] LABS: Platelet Count 50 k/uL (150-450)
[2020-03-09 05:17] LABS: ABG Base Excess -7.3 mmol/L; ABG HCO3 18 mmol/L (21-25); ABG Oxygen Saturation 97.3 % (94-97); ABG PCO2 29 mmHg (35-45); ABG PO2 96 mmHg (83-108); ABG TCO2 18 mmol/L (19-24); Allen Test Performed? Yes
[2020-03-09 05:32] LABS: Band Neutrophils % 5 %; Eosinophils # (M) 0.26 k/uL (0-0.7); Lymphocytes # (M) 0.43 k/uL (1.0-4.8); Neutrophils % (M) 72 %; Nucleated Red Blood Cells 0 /100 WBC (0-0); Total Cells Counted 100
[2020-03-09 05:35] LABS: Polychromasia Present; Target Cells Present
[2020-03-09 05:36] LABS: Anisocytosis (M) Present
[2020-03-09 06:06] LABS: Glucose,Whole Blood 93 mg/dL (75-99)
[2020-03-09] MEDS: THIAMINE 100 MG TAB PO SCH ×2 (07:01→17:51)
--- NOTE | 2020-03-09 07:06 | XR ---
EXAMINATION TYPE: XR chest 1V portable DATE OF EXAM: 03/09/2020 CLINICAL HISTORY: Difficulty breathing progress study. TECHNIQUE: Single AP portable upright view of the chest is obtained. COMPARISON: Chest x-ray from one day earlier and older studies. FINDINGS: Stable endotracheal and orogastric tubes. Background chronic parenchyma change with bibasi lar opacities. Upper lungs are clear without pneumothorax. Cardiac silhouette size stable and within normal limits. Osseous structures show old fracture right mid clavicle. IMPRESSION: Background chronic parenchymal change with small to tiny bilateral pleural effusions and associated patchy bibasilar atelectasis and/or infiltrates. No significant change from one day rodriguez etllo
[2020-03-09 09:06] LABS: Glucose,Whole Blood 73 mg/dL (75-99)
[2020-03-09] MEDS: PANTOPRAZOLE 40 MG/10 ML VIAL IVP SCH ×2 (09:53→21:35)
[2020-03-09] MEDS: CHLORHEXIDINE GLUCONATE 15 ML CUP MUCOUS MEM SCH ×2 (09:53→21:35)
[2020-03-09] MEDS: LACTULOSE 20 GM/30 ML CUP PO SCH ×2 (09:53→21:37)
[2020-03-09] MEDS: atenoloL 25 MG TAB PO SCH (09:58)
--- NOTE | 2020-03-09 10:12 | P.PN ---
Subjective Progress Note Date: 03/09/20 Principal diagnosis: This is a 69-year-old male, admitted with left leg pain. Found to have ischemia and underwent surgery including thrombectomy endarterectomy and stenting on the left as well as the right. He is followed up acute kidney injury from AT, postop surgery. Supposedly only about 70-80 mL of dye was used. He is anuric His creatinine on admission was 2.2 with no previous creatinines available Currently he remains intubated, sedated, on sodium bicarbonate drip. He is on 40% FiO2, His not on any inotropes. Vital signs are stable but with pressure is somewhat low in the 90s, urine output is though is low 44 mL the last 24 hours. Objective - Vital Signs Vital signs: Vital Signs Temp 98.4 F 03/09/20 04:00 Pulse 85 03/09/20 09:00 Resp 12 03/09/20 09:00 BP 90/53 03/09/20 08:00 Pulse Ox 97 03/09/20 09:00 Intake & Output 03/08/20 03/09/20 03/09/20 18:59 06:59 18:59 Intake Total 2454.303 2140.02 568.509 Output Total 300 5 250 Balance 2154.303 2135.02 318.509 Weight 69.1 kg Intake: IV 1925 2100 525 Dextrose 5% in Water 1, 275 300 75 000 ml @ 25 mls/hr IV . Q24H [facility] with Sodium Bicarb (1 Meq/ml) 150 ml Rx#:[id number] Sodium Chloride 0.9% 1, 1650 1800 450 000 ml @ 150 mls/hr IV . Q6H40M [facility] Rx#:[id number] Intake, IV Titration 93.303 40.02 43.509 Amount fentaNYL (PF) 1,000 mcg 93.303 40.02 43.509 In Sodium Chloride 0.9% 80 ml @ Per Protocol IV . Q0M [facility] Rx#:[id number] Blood Product 436 Ffp 24 Pher Acda Cnt1 225 Unit [id number] Ffp 24 Pher Acda Cnt1 211 Unit [id number] Output: Gastric Drainage 300 250 Urine 0 5 0 Other: Voiding Method Indwelling Catheter Indwelling Catheter ABP, PAP, CO, CI - Last Documented Arterial Blood Pressure 126/52 On examination is sedated on the vent on 40% FiO2 Normal sinus rhythm on the monitor Blood pressure is at times in the 90s. Lungs are clear to auscultation good air entry bilaterally Heart sounds are unremarkable for any murmur rub gallop. Abdomen abdomen somewhat distended with no bowel sounds. Extremity exam reveals no edema Somewhat pale with some bluish spots on his legs and cooler on both sides Neurologically obtunded - Labs CBC & Chem 7: 03/09/20 03:55 03/09/20 03:55 Labs: Abnormal Lab Results - Last 24 Hours (Table) 03/08/20 03/08/20 03/08/20 Range/Units 03:10 12:51 15:05 WBC 3.6 L (3.8-10.6) k/uL RBC 2.59 L (4.30-5.90) m/uL Hgb 9.1 L (13.0-17.5) gm/dL Hct 27.6 L (39.0-53.0) % MCV 106.3 H (80.0-100.0) fL Plt Count 47 L (150-450) k/uL Lymphocytes # (Manual) (1.0-4.8) k/uL PT (9.0-12.0) sec INR (<1.2) APTT (22.0-30.0) sec ABG pCO2 (35-45) mmHg ABG HCO3 (21-25) mmol/L ABG Total CO2 (19-24) mmol/L ABG O2 Saturation (94-97) % Chloride (98-107) mmol/L Carbon Dioxide (22-30) mmol/L BUN (9-20) mg/dL Creatinine (0.66-1.25) mg/dL POC Glucose (mg/dL) 64 L (75-99) mg/dL Calcium (8.4-10.2) mg/dL Total Bilirubin (0.2-1.3) mg/dL AST (17-59) U/L ALT (4-49) U/L Total Protein (6.3-8.2) g/dL Albumin (3.5-5.0) g/dL Amylase (30-110) U/L Lipase (23-300) U/L Hep Bs Antibody Reactive H (Non-Reactive) 03/08/20 03/08/20 03/09/20 Range/Units 15:05 19:44 03:55 WBC (3.8-10.6) k/uL RBC 2.67 L (4.30-5.90) m/uL Hgb 9.1 L (13.0-17.5) gm/dL Hct 28.5 L (39.0-53.0) % MCV 106.9 H (80.0-100.0) fL Plt Count 50 L (150-450) k/uL Lymphocytes # (Manual) 0.43 L (1.0-4.8) k/uL PT 24.0 H (9.0-12.0) sec INR 2.5 H (<1.2) APTT 34.7 H (22.0-30.0) sec ABG pCO2 (35-45) mmHg ABG HCO3 (21-25) mmol/L ABG Total CO2 (19-24) mmol/L ABG O2 Saturation (94-97) % Chloride (98-107) mmol/L Carbon Dioxide (22-30) mmol/L BUN (9-20) mg/dL Creatinine (0.66-1.25) mg/dL POC Glucose (mg/dL) 70 L (75-99) mg/dL Calcium (8.4-10.2) mg/dL Total Bilirubin (0.2-1.3) mg/dL AST (17-59) U/L ALT (4-49) U/L Total Protein (6.3-8.2) g/dL Albumin (3.5-5.0) g/dL Amylase (30-110) U/L Lipase (23-300) U/L Hep Bs Antibody (Non-Reactive) 03/09/20 03/09/20 03/09/20 Range/Units 03:55 05:15 09:04 WBC (3.8-10.6) k/uL RBC (4.30-5.90) m/uL Hgb (13.0-17.5) gm/dL Hct (39.0-53.0) % MCV (80.0-100.0) fL Plt Count (150-450) k/uL Lymphocytes # (Manual) (1.0-4.8) k/uL PT (9.0-12.0) sec INR (<1.2) APTT (22.0-30.0) sec ABG pCO2 29 L (35-45) mmHg ABG HCO3 18 L (21-25) mmol/L ABG Total CO2 18 L (19-24) mmol/L ABG O2 Saturation 97.3 H (94-97) % Chloride 111 H (98-107) mmol/L Carbon Dioxide 17 L (22-30) mmol/L BUN 36 H (9-20) mg/dL Creatinine 3.90 H (0.66-1.25) mg/dL POC Glucose (mg/dL) 73 L (75-99) mg/dL Calcium 6.5 L (8.4-10.2) mg/dL Total Bilirubin 7.5 H (0.2-1.3) mg/dL AST 2891 H (17-59) U/L ALT 1122 H (4-49) U/L Total Protein 4.0 L (6.3-8.2) g/dL Albumin 2.0 L (3.5-5.0) g/dL Amylase 146 H (30-110) U/L Lipase 890 H (23-300) U/L Hep Bs Antibody (Non-Reactive) Microbiology - Last 24 Hours (Table) 03/06/20 14:22 Blood Culture - Preliminary Blood No Growth after 48 hours Assessment and Plan Assessment: Impression 1. ATN status post's thrombectomy, endarterectomy and stenting on both legs with dye studies(only about 70-80 mL of dye was used). As he is anuric will likely need dialysis unless he shows recovery in the next 24 hours. There may be an element of renal artery stenosis bilaterally, based on his peripheral vascular disease and lack of recovery of renal function, and a slightly low blood pressure causing difficulty and renal perfusion. 2. Status post thrombectomy, endarterectomy and stenting on both legs with balloon angioplasty 3. Ventilatory dependent respiratory failure on 40% FiO2 4. Mild hypotension. 5. Acid base status shows normal pH is 7.40, pCO2 29 and pO2 is 96 bicarb is 18. This suggests combination of respiratory alkalosis on the vent, and a mild degree of non-gap metabolic acidosis secondary to acute kidney injury 6. Severe liver disease possibly shock liver, as well as history of alcohol intake appears 7. Anemia with hemoglobin was 16, went down to 8.9,'s, to 10.1, to 9.1 this morning. 8. Silent abdomen, possibly ischemic Recommendation 1. Discontinue atenolol. Watch blood pressure and heart rate 2. Continue his bicarbonate drip for now. 3 Probably will need dialysis unless he recovers renal function but as of today, there is no urgent need. Most likely will start dialysis tomorrow unless he starts showing recovery
--- NOTE | 2020-03-09 11:10 | P.PN ---
Subjective Progress Note Date: 03/09/20 (Critical care time 35) Principal diagnosis: Multiorgan failure syndrome Severe metabolic acidosis due to ischemic leg Acute kidney injury with an urea Acute liver injury By basilar atelectasis and small pleural effusion Ischemic left lower extremity Peripheral vascular disease Cirrhosis of the liver Lactic acidosis Extensive history of alcohol consumption Acute pancreatitis 03/09/2020, patient seen eval examined during the rounds labs reviewed medications reviewed, hemoglobin remained stable coffee-ground stuff seen coming out from the NG tube discuss care plan with GI service as well as the primary service and renal service at length, patient remains and uric, creatinine is up hemodynamic status stable, also noted runs of 14 beat V. tach overnight which were asymptomatic, ventilator settings remain stable patient is on assist control rate of 14 tidal volume of 505 of PEEP and 40% oxygen, labs reviewed white cell count is 4300, hemoglobin 9.1 remains stable, it count is 50,000 which also remains stable, arterial blood gases reviewed which is state stay b elow with metabolic acidosis and high base deficit, patient remains on bicarb drip however will increase it to 50 mL an hour we'll decrease the IV fluids 200 mL an hour normal saline, patient has been having intermittent hypoglycemia likely due to poor hepatic reserve, patient to be started on tube feed as planned, AST and ALT are progressively improving, however bilirubin, will get ultrasound of the kidneys as well to rule out obstructive uropathy as well as renal artery stenosis 03/08/2020, patient seen eval reexamined during the rounds remains sedated with fentanyl drip, propofol has been discontinued due to ongoing pancreatitis, patient also has acute liver injury, noted platelet count to be low, patient hasn't 2-3 large lower GI bleed episodes, hemoglobin however is stable, coffee-ground NG aspirate has been noted, hemodynamically stable, on ventilator support for, no evidence of infection is present we'll DC Zosyn, ventilator settings include assist control of 14 tidal volume 500+5 of PEEP, 40% oxygen, GI services as well as the nephrology following the patient, we'll continue bicarb drip, patient is off of heparin due to ongoing GI bleed, we'll taper down the sedation to observe mental status, patient has developed multiorgan failure prognosis is poor however continue to provide supportive care 03/07/2020, patient seen and evaluated examined during the round labs reviewed medications reviewed care plan discussed, critical care time spent 35 minutes, patient remains intubated on full ventilator support currently he is on FiO2 of 50%, tidal volume of 500, PEEP of 5, his sed rate is 14 breathing about 16 times a minute, he is on propofol sedated adequately, labs reviewed medications reviewed, his chest x-ray showed minimal effusion otherwise unremarkable ET tube is stable, patient has NG tube, NG tube aspirate is noted to be heme positive, patient has a significant drop in hemoglobin from 16 to 8 now, which is likely due to vascular surgery, patient is status post day #1 of left femoral endarterectomy by Dr. Copeland's for detail. Please refer to the operative note, also noted urine to be very dark and dusky, with minimal output, white cell count remained stable hemoglobin latest check was 9, platelet count is 70,000, after bicarb drip the bicarb in the blood is up to 21, patient has history of base deficit of -4, BUN/creatinine slightly improved to 18 and 1.96, lactic acid down to 4.5, calcium is 6.4 which is being replaced, a mildly is alive status 1 , ammonia is a 50, will give fluid bolus of 500 mL increase fluids to 1 50 mL an hour, decreased the bicarb drip to 30, need to stop propofol drip due to pancreatitis some other means will be considered for sedation, patient remains on IV antibiotics with Zosyn, the left leg appearance slightly better and improved from pedal white yesterday to normal color now however dorsalis pedis and posterior. We'll are still negative with Doppler. Refill slightly improved compared to yesterday exam, This is a 72-year-old male came into the hospital with left leg pain and started from the groin, patient has been having ongoing pain for the last 2 days, also have pale discoloration patient has a significant history of alcohol consumption as well as vascular disease he is a resident of [facility], he is accompanied by his brother data predominantly has been obtained from him, Review of the data revealed that he has history of hyperlipidemia, hypertension, alcohol abuse who states he drinks a 30 pack a week and has been drinking for greater than 30 years, and is a pack-a-day smoker for greater than 50 years. The patient states he has been having bilateral lower extremity pain for at le ast the last year, however starting today he had worse pain in the left lower extremity. States that he saw Dr. Fitch in the office yesterday. In February 2019 he had a arterial study of the bilateral lower extremity showing moderate left fem-pop disease with possible iliac component. The patient denies any shortness of breath or chest pain. He is able to ambulate, however does have pain with ambulation. He also has multiple scratches and scabbing on bilateral lower extremities left greater than right. Patient's friend at the bedside states that he itches his legs a lot, which causes the scabbing. The patient is alert and answers his questions appropriately, he is able to follow commands, states he knows he is at [facility], states his birthday and name, however was confused on the current year when asked. Admission labs show WBC 9.9, hemoglobin 16.4, hematocrit 53.5, platelets 69,000 PT 47.2, INR 4.7, sodium 131, potassium 4.9, chloride 89, carbon dioxide 9, BUNs 16, creatinine 2.21, glucose 42, plasma lactic acid 15.3 magnesium 2.6, total bili 7.4, alk ph os 126, AST greater than 15,000, ALTs 6746, ammonia 47, creatinine kidneys 365, amylase 195, lipase 1213. Vascular surgery have evaluated this patient, patient is being taken to the OR with FFP risk have been discussed with the patient's brother and they appeared to understand as mentioned by vascular surgery Objective - Vital Signs Vital signs: Vital Signs Temp 98.4 F 03/09/20 04:00 Pulse 86 03/09/20 10:00 Resp 15 03/09/20 10:00 BP 95/54 03/09/20 10:00 Pulse Ox 97 03/09/20 10:00 Intake & Output 03/08/20 03/09/20 03/09/20 18:59 06:59 18:59 Intake Total 2454.303 2140.02 803.509 Output Total 300 5 253 Balance 2154.303 2135.02 550.509 Weight 69.1 kg Intake: IV 1925 2100 700 Dextrose 5% in Water 1, 275 300 100 000 ml @ 25 mls/hr IV . Q24H [facility] with Sodium Bicarb (1 Meq/ml) 150 ml Rx#:[id number] Sodium Chloride 0.9% 1, 1650 1800 600 000 ml @ 150 mls/hr IV . Q6H40M [facility] Rx#:[id number] Intake, IV Titration 93.303 40.02 43.509 Amount fentaNYL (PF) 1,000 mcg 93.303 40.02 43.509 In Sodium Chloride 0.9% 80 ml @ Per Protocol IV . Q0M [facility] Rx#:[id number] Blood Product 436 Ffp 24 Pher Acda Cnt1 225 Unit [id number] Ffp 24 Pher Acda Cnt1 211 Unit [id number] Other 60 Output: Gastric Drainage 300 250 Urine 0 5 3 Other: Voiding Method Indwelling Catheter Indwelling Catheter ABP, PAP, CO, CI - Last Documented Arterial Blood Pressure 108/50 - Exam - Constitutional General appearance: disheveled, mild distress, thin, sedated with full ventilator support - EENT Eyes: EOMI, PERRLA ENT: hard of hearing Ears: bilateral: normal - Neck Carotids: bilateral: upstroke normal Thyroid: bilateral: normal size - Respiratory Respiratory: bilateral: CTA - Cardiovascular Rhythm: regular Heart sounds: normal: S1, S2 - Gastrointestinal General gastrointestinal: hyperactive bowel sounds - Neurologic Neurologic: Sedated on full ventilator support - Musculoskeletal Musculoskeletal: generalized weakness Normal color now however left lower extremity with dopplerable pulses as noted by vascular surgery involving dorsalis pedis and posterior tibial - Labs CBC & Chem 7: 03/09/20 03:55 03/09/20 03:55 Labs: Abnormal Lab Results - Last 24 Hours (Table) 03/08/20 03/08/20 03/08/20 Range/Units 03:10 12:51 15:05 WBC 3.6 L (3.8-10.6) k/uL RBC 2.59 L (4.30-5.90) m/uL Hgb 9.1 L (13.0-17.5) gm/dL Hct 27.6 L (39.0-53.0) % MCV 106.3 H (80.0-100.0) fL Plt Count 47 L (150-450) k/uL Lymphocytes # (Manual) (1.0-4.8) k/uL PT (9.0-12.0) sec INR (<1.2) APTT (22.0-30.0) sec ABG pCO2 (35-45) mmHg ABG HCO3 (21-25) mmol/L ABG Total CO2 (19-24) mmol/L ABG O2 Saturation (94-97) % Chloride (98-107) mmol/L Carbon Dioxide (22-30) mmol/L BUN (9-20) mg/dL Creatinine (0.66-1.25) mg/dL POC Glucose (mg/dL) 64 L (75-99) mg/dL Calcium (8.4-10.2) mg/dL Total Bilirubin (0.2-1.3) mg/dL AST (17-59) U/L ALT (4-49) U/L Total Protein (6.3-8.2) g/dL Albumin (3.5-5.0) g/dL Amylase (30-110) U/L Lipase (23-300) U/L Hep Bs Antibody Reactive H (Non-Reactive) 03/08/20 03/08/20 03/09/20 Range/Units 15:05 19:44 03:55 WBC (3.8-10.6) k/uL RBC 2.67 L (4.30-5.90) m/uL Hgb 9.1 L (13.0-17.5) gm/dL Hct 28.5 L (39.0-53.0) % MCV 106.9 H (80.0-100.0) fL Plt Count 50 L (150-450) k/uL Lymphocytes # (Manual) 0.43 L (1.0-4.8) k/uL PT 24.0 H (9.0-12.0) sec INR 2.5 H (<1.2) APTT 34.7 H (22.0-30.0) sec ABG pCO2 (35-45) mmHg ABG HCO3 (21-25) mmol/L ABG Total CO2 (19-24) mmol/L ABG O2 Saturation (94-97) % Chloride (98-107) mmol/L Carbon Dioxide (22-30) mmol/L BUN (9-20) mg/dL Creatinine (0.66-1.25) mg/dL POC Glucose (mg/dL) 70 L (75-99) mg/dL Calcium (8.4-10.2) mg/dL Total Bilirubin (0.2-1.3) mg/dL AST (17-59) U/L ALT (4-49) U/L Total Protein (6.3-8.2) g/dL Albumin (3.5-5.0) g/dL Amylase (30-110) U/L Lipase (23-300) U/L Hep Bs Antibody (Non-Reactive) 03/09/20 03/09/20 03/09/20 Range/Units 03:55 05:15 09:04 WBC (3.8-10.6) k/uL RBC (4.30-5.90) m/uL Hgb (13.0-17.5) gm/dL Hct (39.0-53.0) % MCV (80.0-100.0) fL Plt Count (150-450) k/uL Lymphocytes # (Manual) (1.0-4.8) k/uL PT (9.0-12.0) sec INR (<1.2) APTT (22.0-30.0) sec ABG pCO2 29 L (35-45) mmHg ABG HCO3 18 L (21-25) mmol/L ABG Total CO2 18 L (19-24) mmol/L ABG O2 Saturation 97.3 H (94-97) % Chloride 111 H (98-107) mmol/L Carbon Dioxide 17 L (22-30) mmol/L BUN 36 H (9-20) mg/dL Creatinine 3.90 H (0.66-1.25) mg/dL POC Glucose (mg/dL) 73 L (75-99) mg/dL Calcium 6.5 L (8.4-10.2) mg/dL Total Bilirubin 7.5 H (0.2-1.3) mg/dL AST 2891 H (17-59) U/L ALT 1122 H (4-49) U/L Total Protein 4.0 L (6.3-8.2) g/dL Albumin 2.0 L (3.5-5.0) g/dL Amylase 146 H (30-110) U/L Lipase 890 H (23-300) U/L Hep Bs Antibody (Non-Reactive) Microbiology - Last 24 Hours (Table) 03/06/20 14:22 Blood Culture - Preliminary Blood No Growth after 48 hours Assessment and Plan Assessment: GI bleed Thrombocytopenia Acute respiratory failure due to multiorgan failure Severe metabolic acidosis due to ischemic leg Severe sepsis with multiorgan failure including liver pancreatitis renal hemopoietic system gastrointestinal Acute on chronic pancreatitis Hepatitis worsening of liver enzymes likely related to ischemic injury Acute kidney injury Ischemic left lower extremity status post left femoral endarterectomy Acute on chronic pancreatitis Acute on chronic gastritis with heme positive gastric aspirate Acute ischemic liver injury Peripheral vascular disease Cirrhosis of the liver Lactic acidosis Extensive history of alcohol consumption Plan: Fluid adjustment as noted above Tube feed Renal ultrasound for renal artery stenosis and to rule out obstructive uropathy Atenolol change to metoprolol succinate Obtain ultrasound of the kidneys Continue vent support titrate oxygen to 40% Continue fentanyl drip and use when necessary Ativan Patient is still volume depleted continue IV fluids and bicarb Continue bicarb drip however rate reduced to 30 mL an hour Observe off of IV antibiotics Patient is off of heparin, DVT prophylaxis will be started with subcu heparin now Protonix 40 mg IV every 12, Monitor renal functions and urine output closely Replace electrolytes including calcium IV calcium chloride Further recommendations pending plan of care as per clinical response of the physicians
--- NOTE | 2020-03-09 11:24 | US ---
EXAMINATION TYPE: US kidneys/renal and bladder DATE OF EXAM: 03/09/2020 COMPARISON: NONE CLINICAL HISTORY: acute renal failure . intubated ICU patient EXAM MEASUREMENTS: Right Kidney: unable to assess Left Kidney: 10.2 x 5.3 bx 6.1 cm Right Kidney: unable to assess due to edematous abd, bowel gas and lack of patient mobility Left Kidney: mid pole cyst = 2.4 x 1.6 x 1.8cm Bladder: not distended, nieves cath Suboptimal study due to intubated ICU status. Trace free intraperitoneal fluid identified during scan sarah of right kidney. No gross hydronephrosis in view images saved of the right kidney. Markedly subo ptimal study noted. Bladder suboptimally distended with Nieves decompression. Improved visualization o f the left kidney with simple appearing 2.4 x 1.8 cm cyst midpole level. No gross hydronephrosis. IMPRESSION: Suboptimal study. No left-sided hydronephrosis.
[2020-03-09 12:06] LABS: Glucose,Whole Blood 74 mg/dL (75-99)
[2020-03-09] MEDS: fentaNYL (PF) 1,000 MCG in SODIUM CHLORIDE 0.9% 80 ML IV SCH (12:36)
--- NOTE | 2020-03-09 14:38 | PN ---
PROGRESS NOTE DATE OF SERVICE: 03/09/2020 The patient is a 69-year-old white male admitted to the hospital with ischemia of the left lower extremity, undergoing surgery. Currently remains on the vent, mechanically ventilated and sedated. Has an NG tube in place and has been having coffee-grounds emesis. He had approximately 500 mL of coffee-ground material from the NG tube aspirated but no more documented bowel movements as per the nursing staff. He apparently had a run of ventricular tachycardia overnight but remained asymptomatic. Hemoglobin stable at 9.1 g/dL. PHYSICAL EXAMINATION: Remains on the vent sedated, mechanically ventilated. VITAL SIGNS: Blood pressure is 95/54, pulse 86, temperature 98. HEENT examination unremarkable. CHEST: Decreased breath sounds bilaterally. HEART: Regular rate and rhythm. ABDOMEN is slightly distended but bowel sounds are positive. EXTREMITIES: No edema. Left lower extremity with ischemic leg status post surgery. LABS: From today WBC 4.3, hemoglobin 9.1, platelets 50,000. INR yesterday was 2.5. BUN are creatinine at 36 and 3.9 respectively. AST and ALT are 2891 and 1122 respectively. T- bilirubin 7.5. Lipase is down to 890. IMPRESSION: 1. Acute respiratory failure, currently sedated, mechanically ventilated. 2. Severe metabolic acidosis related to ischemia of the left lower extremity for which he underwent surgery by Dr. Copeland. He was on IV heparin but had to be discontinued because of ongoing GI bleed. The patient was given 2 units of fresh frozen plasma. 3. Acute upper gastrointestinal bleed. NG tube in place with coffee-ground material. He dropped his hemoglobin from 10 to 9 g/dL. Heparin has been discontinued 24 hours ago. Bleeding has slowed down. Hemoglobin at 9.1 g/dL. He was given 2 units of fresh frozen plasma yesterday. INR is down to 2.5. 4. Acute ischemic hepatitis with significant elevation of serum transaminases which are gradually improving. 5. Acute kidney injury with elevated BUN and creatinine. Nephrology following the patient closely. 6. Alcoholic liver disease with underlying possible cirrhosis of the liver and a component of acute alcoholic hepatitis. RECOMMENDATIONS: 1. Continue with symptomatic and supportive care. 2. No plans for any endoscopic intervention at the present time. 3. Continue to hold off on IV heparin. 4. Continue with Protonix 40 mg twice daily. 5. Monitor CBC on a daily basis. 6. If he has significant bleeding, we will give him 2 more units of FFP. 7. Okay to use NG tube for feeds for now. 8. We will follow with you closely. Thank you for this consultation. MMPAOLOL / IJN: [id number] /
[2020-03-09] MEDS: HEPARIN SOD,PORK IN 0.45% NACL 25,000 UNIT in 0.45% NACL 1 250ML.BAG IV SCH (14:56)
[2020-03-09 16:41] LABS: Glucose,Whole Blood 65 mg/dL (75-99)
[2020-03-09 16:41] LABS: Glucose,Whole Blood 82 mg/dL (75-99)
[2020-03-09 19:58] LABS: Glucose,Whole Blood 73 mg/dL (75-99)
[2020-03-09] MEDS: DEXTROSE 5% IN WATER 1,000 ML with SODIUM BICARB (1 MEQ/ML) 150 ML IV SCH (22:00)
[2020-03-09] MEDS ORDERED: SODIUM CHLORIDE 0.9% 1,000 ML IV ONE (22:45)
[2020-03-10 00:05] LABS: Glucose,Whole Blood 77 mg/dL (75-99)
[2020-03-10 00:08] LABS: Glucose,Whole Blood 93 mg/dL (75-99)
[2020-03-10] MEDS: fentaNYL (PF) 1,000 MCG in SODIUM CHLORIDE 0.9% 80 ML IV SCH (01:05)
--- NOTE | 2020-03-10 01:46 | PN ---
PROGRESS NOTE A 69-year-old white male, acute left femoral occlusion, status post , cirrhosis, pancreatitis, metabolic acidosis, sepsis, acute hypoxemic respiratory distress on ventilator. Ventilator settings were reviewed. He has decreasing amylase and lipase in the 800s to 900s. Resting comfortably on the vent. ICU notes, ABGs reviewed. EXTREMITIES: No cyanosis, clubbing, edema. ABDOMEN: Soft. CARDIOVASCULAR: S1, S2. LUNGS: Clear. ASSESSMENT: 1. Acute left femoral occlusion, status post . 2. Acute hypoxemic respiratory distress secondary to sepsis. 3. Acute pancreatitis. 4. Cirrhosis. 5. Pancreatitis. Prognosis extremely guarded. Metabolic acidosis. Continue bicarb drip. Broad- spectrum antibiotics. Prognosis guarded in ICU. MMODL / IJN: [id number] /
[2020-03-10] MEDS: NOREPINEPHRINE 4 MG in SODIUM CHLORIDE 0.9% 250 ML IV SCH ×2 (02:53→14:28)
[2020-03-10 03:35] LABS: Glucose,Whole Blood 99 mg/dL (75-99)
[2020-03-10] MEDS: SODIUM CHLORIDE 0.9% 1,000 ML IV SCH ×2 (03:35→11:10)
[2020-03-10 03:53] LABS: HCT 29.1 % (39.0-53.0); HGB 9.3 gm/dL (13.0-17.5); Hypochromasia Moderate; MCH 34.8 pg (25.0-35.0); MCHC 31.9 g/dL (31.0-37.0); Macrocytosis Marked; Mean Platelet Volume 11.2; RBC 2.67 m/uL (4.30-5.90); RDW 15.1 % (11.5-15.5); WBC 5.9 k/uL (3.8-10.6)
[2020-03-10 03:54] LABS: INR 4.2 (<1.2); Platelet Count 51 k/uL (150-450); Prothrombin Time 41.5 sec (9.0-12.0)
[2020-03-10 04:02] LABS: Albumin 1.9 g/dL (3.5-5.0); Calcium 6.6 mg/dL (8.4-10.2); Potassium 3.9 mmol/L (3.5-5.1); Total Bilirubin 7.8 mg/dL (0.2-1.3); Total Protein 3.9 g/dL (6.3-8.2)
[2020-03-10 04:21] LABS: Band Neutrophils % 1 %; Lymphocytes # (M) 0.41 k/uL (1.0-4.8); Monocytes # (M) 0.89 k/uL (0-1.0); Neutrophils % (M) 77 %; Nucleated Red Blood Cells 0 /100 WBC (0-0); Target Cells Present; Total Cells Counted 100
[2020-03-10 05:07] LABS: ABG Base Excess -7.9 mmol/L; ABG HCO3 18 mmol/L (21-25); ABG Oxygen Saturation 95.2 % (94-97); ABG PCO2 32 mmHg (35-45); ABG PH 7.35 (7.35-7.45); ABG PO2 80 mmHg (83-108); ABG TCO2 19 mmol/L (19-24)
--- NOTE | 2020-03-10 07:24 | XR ---
EXAMINATION TYPE: XR chest 1V portable DATE OF EXAM: 03/10/2020 Comparison: 03/09/2020 Clinical History: 69 year-old male tube placement Findings: ET tube tip at the level of the medial clavicular heads. NG tube is satisfactory. Heart normal size. Hyperinflation. Antonio B lines. Confluent interstitial opacity right upper and midlung. Blunted left costophrenic angle. Old right midclavicular shaft fracture deformity. Impression: COPD. Correlate for developing early atypical interstitial pulmonary edema. Trace left effusion.
[2020-03-10 08:01] LABS: Glucose,Whole Blood 92 mg/dL (75-99)
[2020-03-10] MEDS: CHLORHEXIDINE GLUCONATE 15 ML CUP MUCOUS MEM SCH (08:41)
[2020-03-10] MEDS: PANTOPRAZOLE 40 MG/10 ML VIAL IVP SCH (08:42)
[2020-03-10] MEDS: THIAMINE 100 MG TAB PO SCH (08:42)
[2020-03-10] MEDS ORDERED: METOPROLOL SUCCINATE (ER) 25 MG TAB.ER.24H PO SCH (09:00)
--- NOTE | 2020-03-10 10:02 | P.PN ---
Subjective Progress Note Date: 03/10/20 (Critical care time spent 35 minutes) Principal diagnosis: Acute respiratory failure due to multiple comorbidities and multiorgan failure Multiorgan failure syndrome Severe metabolic acidosis due to ischemic leg Acute kidney injury with anuria Acute liver injury Coagulopathy with elevated PT/INR Thrombocytopenia By basilar atelectasis and small pleural effusion Ischemic left lower extremity Peripheral vascular disease Cirrhosis of the liver Lactic acidosis Extensive history of alcohol consumption Acute pancreatitis 03/10/2020, patient seen eval examined during the rounds labs reviewed medications reviewed, patient remains hemodynamically unstable now require vasopressors to maintain a sustained pressure, will need a central line patient already had a A-line, hemodynamic status otherwise is marginal BUN/creatinine continue to go up, patient has profound metabolic acidosis, sources multiple including ischemic leg as well as acute renal failure, also multiorgan failure with shock liver, possible contrast nephropathy cannot be excluded, patient is still have intermittent upper GI bleed, tube feed is pending, currently patient is on low-fat to keep map around 60-65, fluid did help, but now patient is getting fluid overloaded chest x-ray shows externalization and small effusion, current vent settings include assist control rate of 14 breathing 18, tidal volume 500, PEEP of 5, oxygen is 40%, hemoglobin remained stable 9.3, platelet count is 51,000, INR is 4.2, arterial blood gases revealed pH of 7.35 pCO2 32 pO2 of 80, BUNs creatinine are up to 41 and 4.99, calcium is 6.6, AST and ALT are down to 1232 and 557, 03/09/2020, patient seen eval examined during the rounds labs reviewed medications reviewed, hemoglobin remained stable coffee-ground stuff seen coming out from the NG tube discuss care plan with GI service as well as the primary service and renal service at length, patient remains and uric, creatinine is up hemodynamic status stable, also noted runs of 14 beat V. tach overnight which were asymptomatic, ventilator settings remain stable patient is on assist control rate of 14 tidal volume of 505 of PEEP and 40% oxygen, labs reviewed white cell count is 4300, hemoglobin 9.1 remains stable, it count is 50,000 which also remains stable, arterial blood gases reviewed which is state stay below with metabolic acidosis and high base deficit, patient remains on bicarb drip however will increase it to 50 mL an hour we'll decrease the IV fluids 200 mL an hour normal saline, patient has been having intermittent hypoglycemia likely due to poor hepatic reserve, patient to be started on tube feed as planned, AST and ALT are progressively improving, however bilirubin, will get ultrasound of the kidneys as well to rule out obstructive uropathy as well as renal artery stenosis 03/08/2020, patient seen eval reexamined during the rounds remains sedated with fentanyl drip, propofol has been discontinued due to ongoing pancreatitis, patient also has acute liver injury, noted platelet count to be low, patient hasn't 2-3 large lower GI bleed episodes, hemoglobin however is stable, coffee- ground NG aspirate has been noted, hemodynamically stable, on ventilator support for, no evidence of infection is present we'll DC Zosyn, ventilator settings include assist control of 14 tidal volume 500+5 of PEEP, 40% oxygen, GI services as well as the nephrology following the patient, we'll continue bicarb drip, patient is off of heparin due to ongoing GI bleed, we'll taper down the sedation to observe mental status, patient has developed multiorgan failure prognosis is poor however continue to provide supportive care 03/07/2020, patient seen and evaluated examined during the round labs reviewed medications reviewed care plan discussed, critical care time spent 35 minutes, patient remains intubated on full ventilator support currently he is on FiO2 of 50%, tidal volume of 500, PEEP of 5, his sed rate is 14 breathing about 16 times a minute, he is on propofol sedated adequately, labs reviewed medications reviewed, his chest x-ray showed minimal effusion otherwise unremarkable ET tube is stable, patient has NG tube, NG tube aspirate is noted to be heme positive, patient has a significant drop in hemoglobin from 16 to 8 now, which is likely due to vascular surgery, patient is status post day #1 of left femoral endarterectomy by Dr. Copeland's for detail. Please refer to the operative note, also noted urine to be very dark and dusky, with minimal output, white cell count remained stable hemoglobin latest check was 9, platelet count is 70,000, after bicarb drip the bicarb in the blood is up to 21, patient has history of ba se deficit of -4, BUN/creatinine slightly improved to 18 and 1.96, lactic acid down to 4.5, calcium is 6.4 which is being replaced, a mildly is alive status 162/1861, ammonia is a 50, will give fluid bolus of 500 mL increase fluids to 1 50 mL an hour, decreased the bicarb drip to 30, need to stop propofol drip due to pancreatitis some other means will be considered for sedation, patient remains on IV antibiotics with Zosyn, the left leg appearance slightly better and improved from pedal white yesterday to normal color now however dorsalis pedis and posterior. We'll are still negative with Doppler. Refill slightly improved compared to yesterday exam, This is a 72-year-old male came into the hospital with left leg pain and started from the groin, patient has been having ongoing pain for the last 2 days, also have pale discoloration patient has a significant history of alcohol consumption as well as vascular disease he is a resident of [facility], he is accompanied by his brother data predominantly has been obtained from him, Review of the data revealed that he has history of hyperlipidemia, hypertension, alcohol abuse who states he drinks a 30 pack a week and has been drinking for greater than 30 years, and is a pack-a-day smoker for greater than 50 years. The patient states he has been having bilateral lower extremity pain for at least the last year, however starting today he had worse pain in the left lower extremity. States that he saw Dr. Fitch in the office yesterday. In February 2019 he had a arterial study of the bilateral lower extremity showing moderate left fem-pop disease with possible iliac component. The patient denies any shortness of breath or chest pain. He is able to ambulate, however does have pain with ambulation. He also has multiple scratches and scabbing on bilateral lower extremities left greater than right. Patient's friend at the bedside states that he itches his legs a lot, which causes the scabbing. The patient is alert and answers his questions appropriately, he is able to follow commands, states he knows he is at [facility], states his birthday and name, however was confused on the current year when asked. Admission labs show WBC 9.9, hemoglobin 16.4, hematocrit 53.5, platelets 69,000 PT 47.2, INR 4.7, sodium 131, potassium 4.9, chloride 89, carbon dioxide 9, BUNs 16, creatinine 2.21, glucose 42, plasma lactic acid 15.3 magnesium 2.6, total bili 7.4, alk phos 126, AST greater than 15,000, ALTs 6746, ammonia 47, creatinine kidneys 365, amylase 195, lipase 1213. Vascular surgery have evaluated this patient, patient is being taken to the OR with FFP risk have been discussed with the patient's brother and they appeared to understand as mentioned by vascular surgery Objective - Vital Signs Vital signs: Vital Signs Temp 97.7 F 03/10/20 08:00 Pulse 87 03/10/20 09:00 Resp 7 L 03/10/20 09:00 BP 99/54 03/10/20 09:00 Pulse Ox 99 03/10/20 09:00 Intake & Output 03/09/20 03/10/20 03/10/20 18:59 06:59 18:59 Intake Total 2033.493 2848.160 494.014 Output Total 403 0 0 Balance 4739.290 5940.160 494.014 Weight 69.1 kg 75.1 kg Intake: IV 1900 1830 459 Arterial line flush 30 9 Dextrose 5% in Water 1, 500 600 150 000 ml @ 50 mls/hr IV . Q23H [facility] with Sodium Bicarb (1 Meq/ml) 150 ml Rx#:[id number] Sodium Chloride 0.9% 1, 1400 1200 300 000 ml @ 100 mls/hr IV . Q10H [facility] Rx#:[id number] Intake, IV Titration 73.493 1018.160 35.014 Amount Norepinephrine 4 mg In 39.097 35.014 Sodium Chloride 0.9% 250 ml @ 0.05 MCG/KG/MIN 13. 164 mls/hr IV .[id number] [facility] Rx#:[id number] Sodium Chloride 0.9% 1, 900 000 ml @ 999 mls/hr IV . Q1H1M ONE Rx#:[id number] fentaNYL (PF) 1,000 mcg 73.493 79.063 In Sodium Chloride 0.9% 80 ml @ Per Protocol IV . Q0M [facility] Rx#:[id number] Other 60 Output: Gastric Drainage 400 Urine 3 0 0 Other: Voiding Method Indwelling Catheter Indwelling Catheter # Bowel Movements 2 ABP, PAP, CO, CI - Last Documented Arterial Blood Pressure 86/43 - Exam - Constitutional General appearance: disheveled, mild distress, thin, sedated with full ventilat or support - EENT Eyes: EOMI, PERRLA ENT: hard of hearing Ears: bilateral: normal - Neck Carotids: bilateral: upstroke normal Thyroid: bilateral: normal size - Respiratory Respiratory: bilateral: CTA - Cardiovascular Rhythm: regular Heart sounds: normal: S1, S2 - Gastrointestinal General gastrointestinal: hyperactive bowel sounds - Neurologic Neurologic: Sedated on full ventilator support - Musculoskeletal Musculoskeletal: generalized weakness Normal color now however left lower extremity with dopplerable pulses as noted by vascular surgery involving dorsalis pedis and posterior tibial - Labs CBC & Chem 7: 03/10/20 03:30 03/10/20 03:30 Labs: Abnormal Lab Results - Last 24 Hours (Table) 03/09/20 03/09/20 03/09/20 Range/Units 12:05 16:38 19:57 RBC (4.30-5.90) m/uL Hgb (13.0-17.5) gm/dL Hct (39.0-53.0) % MCV (80.0-100.0) fL Plt Count (150-450) k/uL Lymphocytes # (Manual) (1.0-4.8) k/uL Macrocytosis PT (9.0-12.0) sec INR (<1.2) ABG pCO2 (35-45) mmHg ABG pO2 (83-108) mmHg ABG HCO3 (21-25) mmol/L Chloride (98-107) mmol/L Carbon Dioxide (22-30) mmol/L BUN (9-20) mg/dL Creatinine (0.66-1.25) mg/dL POC Glucose (mg/dL) 74 L 65 L 73 L (75-99) mg/dL Calcium (8.4-10.2) mg/dL Total Bilirubin (0.2-1.3) mg/dL AST (17-59) U/L ALT (4-49) U/L Total Protein (6.3-8.2) g/dL Albumin (3.5-5.0) g/dL 03/10/20 03/10/20 03/10/20 Range/Units 03:30 03:30 03:30 RBC 2.67 L (4.30-5.90) m/uL Hgb 9.3 L (13.0-17.5) gm/dL Hct 29.1 L (39.0-53.0) % MCV 109.0 H (80.0-100.0) fL Plt Count 51 L (150-450) k/uL Lymphocytes # (Manual) 0.41 L (1.0-4.8) k/uL Macrocytosis Marked A PT 41.5 H (9.0-12.0) sec INR 4.2 H (<1.2) ABG pCO2 (35-45) mmHg ABG pO2 (83-108) mmHg ABG HCO3 (21-25) mmol/L Chloride 113 H (98-107) mmol/L Carbon Dioxide 18 L (22-30) mmol/L BUN 41 H (9-20) mg/dL Creatinine 4.99 H (0.66-1.25) mg/dL POC Glucose (mg/dL) (75-99) mg/dL Calcium 6.6 L (8.4-10.2) mg/dL Total Bilirubin 7.8 H (0.2-1.3) mg/dL AST 1232 H (17-59) U/L ALT 557 H (4-49) U/L Total Protein 3.9 L (6.3-8.2) g/dL Albumin 1.9 L (3.5-5.0) g/dL 03/10/20 Range/Units 05:02 RBC (4.30-5.90) m/uL Hgb (13.0-17.5) gm/dL Hct (39.0-53.0) % MCV (80.0-100.0) fL Plt Count (150-450) k/uL Lymphocytes # (Manual) (1.0-4.8) k/uL Macrocytosis PT (9.0-12.0) sec INR (<1.2) ABG pCO2 32 L (35-45) mmHg ABG pO2 80 L (83-108) mmHg ABG HCO3 18 L (21-25) mmol/L Chloride (98-107) mmol/L Carbon Dioxide (22-30) mmol/L BUN (9-20) mg/dL Creatinine (0.66-1.25) mg/dL POC Glucose (mg/dL) (75-99) mg/dL Calcium (8.4-10.2) mg/dL Total Bilirubin (0.2-1.3) mg/dL AST (17-59) U/L ALT (4-49) U/L Total Protein (6.3-8.2) g/dL Albumin (3.5-5.0) g/dL Microbiology - Last 24 Hours (Table) 03/06/20 14:22 Blood Culture - Preliminary Blood No Growth after 72 hours Assessment and Plan Assessment: GI bleed Thrombocytopenia Severe coagulopathy with elevated PT/INR Acute respiratory failure due to multiorgan failure Severe metabolic acidosis due to ischemic leg Severe sepsis with multiorgan failure including liver pancreatitis renal hemopoietic system gastrointestinal Acute on chronic pancreatitis Hepatitis worsening of liver enzymes likely related to ischemic injury Acute kidney injury Ischemic left lower extremity status post left femoral endarterectomy Acute on chronic pancreatitis Acute on chronic gastritis with heme positive gastric aspirate Acute ischemic liver injury Peripheral vascular disease Cirrhosis of the liver Lactic acidosis Extensive history of alcohol consumption Plan: Fluid adjustment as noted above We'll start patient on vitamin K FFP 3 bags prior to central line Tube feed if okay with the GI services Renal ultrasound for renal artery stenosis and to rule out obstructive uropathy Atenolol change to metoprolol succinate may need to hold due to hypertension Obtain ultrasound of the kidneys Continue vent support titrate oxygen to 40% Continue fentanyl drip and use when necessary Ativan Patient is still volume depleted continue IV fluids and bicarb Continue bicarb drip however rate reduced to 30 mL an hour Observe off of IV antibiotics Patient is off of heparin, DVT prophylaxis with subcu heparin now Protonix 40 mg IV every 12, Monitor renal functions and urine output closely Replace electrolytes including calcium IV calcium chloride Further recommendations pending plan of care as per clinical response of the physicians Time with Patient: Greater than 30
--- NOTE | 2020-03-10 10:03 | P.PN ---
Subjective Patient is seen in follow-up for acute kidney injury. Remains anuric. Creatinine 4.99 today. Intubated and sedated. Levophed started last night for hypotension. Vital signs are stable. Currently on Levophed. General: The patient appeared well nourished and normally developed. HEENT: Head exam is unremarkable. Neck is without jugular venous distension. Intubated. LUNGS: Breath sounds decreased. HEART: Rate and Rhythm are regular. ABDOMEN: Soft, bowel sounds decreased. EXTREMITITES: 1+ edema. No drainage noted. Objective - Vital Signs Vital signs: Vital Signs Temp 97.7 F 03/10/20 08:00 Pulse 87 03/10/20 09:00 Resp 7 L 03/10/20 09:00 BP 99/54 03/10/20 09:00 Pulse Ox 99 03/10/20 09:00 Intake & Output 03/09/20 03/10/20 03/10/20 18:59 06:59 18:59 Intake Total 2033.493 2848.160 494.014 Output Total 403 0 0 Balance 2463.084 6003.160 494.014 Weight 69.1 kg 75.1 kg Intake: IV 1900 1830 459 Arterial line flush 30 9 Dextrose 5% in Water 1, 500 600 150 000 ml @ 50 mls/hr IV . Q23H [facility] with Sodium Bicarb (1 Meq/ml) 150 ml Rx#:[id number] Sodium Chloride 0.9% 1, 1400 1200 300 000 ml @ 100 mls/hr IV . Q10H [facility] Rx#:[id number] Intake, IV Titration 73.493 1018.160 35.014 Amount Norepinephrine 4 mg In 39.097 35.014 Sodium Chloride 0.9% 250 ml @ 0.05 MCG/KG/MIN 13. 164 mls/hr IV .[id number] [facility] Rx#:[id number] Sodium Chloride 0.9% 1, 900 000 ml @ 999 mls/hr IV . Q1H1M ONE Rx#:[id number] fentaNYL (PF) 1,000 mcg 73.493 79.063 In Sodium Chloride 0.9% 80 ml @ Per Protocol IV . Q0M [facility] Rx#:[id number] Other 60 Output: Gastric Drainage 400 Urine 3 0 0 Other: Voiding Method Indwelling Catheter Indwelling Catheter # Bowel Movements 2 ABP, PAP, CO, CI - Last Documented Arterial Blood Pressure 86/43 - Labs CBC & Chem 7: 03/10/20 03:30 03/10/20 03:30 Labs: Abnormal Lab Results - Last 24 Hours (Table) 03/09/20 03/09/20 03/09/20 Range/Units 12:05 16:38 19:57 RBC (4.30-5.90) m/uL Hgb (13.0-17.5) gm/dL Hct (39.0-53.0) % MCV (80.0-100.0) fL Plt Count (150-450) k/uL Lymphocytes # (Manual) (1.0-4.8) k/uL Macrocytosis PT (9.0-12.0) sec INR (<1.2) ABG pCO2 (35-45) mmHg ABG pO2 (83-108) mmHg ABG HCO3 (21-25) mmol/L Chloride (98-107) mmol/L Carbon Dioxide (22-30) mmol/L BUN (9-20) mg/dL Creatinine (0.66-1.25) mg/dL POC Glucose (mg/dL) 74 L 65 L 73 L (75-99) mg/dL Calcium (8.4-10.2) mg/dL Total Bilirubin (0.2-1.3) mg/dL AST (17-59) U/L ALT (4-49) U/L Total Protein (6.3-8.2) g/dL Albumin (3.5-5.0) g/dL 03/10/20 03/10/20 03/10/20 Range/Units 03:30 03:30 03:30 RBC 2.67 L (4.30-5.90) m/uL Hgb 9.3 L (13.0-17.5) gm/dL Hct 29.1 L (39.0-53.0) % MCV 109.0 H (80.0-100.0) fL Plt Count 51 L (150-450) k/uL Lymphocytes # (Manual) 0.41 L (1.0-4.8) k/uL Macrocytosis Marked A PT 41.5 H (9.0-12.0) sec INR 4.2 H (<1.2) ABG pCO2 (35-45) mmHg ABG pO2 (83-108) mmHg ABG HCO3 (21-25) mmol/L Chloride 113 H (98-107) mmol/L Carbon Dioxide 18 L (22-30) mmol/L BUN 41 H (9-20) mg/dL Creatinine 4.99 H (0.66-1.25) mg/dL POC Glucose (mg/dL) (75-99) mg/dL Calcium 6.6 L (8.4-10.2) mg/dL Total Bilirubin 7.8 H (0.2-1.3) mg/dL AST 1232 H (17-59) U/L ALT 557 H (4-49) U/L Total Protein 3.9 L (6.3-8.2) g/dL Albumin 1.9 L (3.5-5.0) g/dL 03/10/20 Range/Units 05:02 RBC (4.30-5.90) m/uL Hgb (13.0-17.5) gm/dL Hct (39.0-53.0) % MCV (80.0-100.0) fL Plt Count (150-450) k/uL Lymphocytes # (Manual) (1.0-4.8) k/uL Macrocytosis PT (9.0-12.0) sec INR (<1.2) ABG pCO2 32 L (35-45) mmHg ABG pO2 80 L (83-108) mmHg ABG HCO3 18 L (21-25) mmol/L Chloride (98-107) mmol/L Carbon Dioxide (22-30) mmol/L BUN (9-20) mg/dL Creatinine (0.66-1.25) mg/dL POC Glucose (mg/dL) (75-99) mg/dL Calcium (8.4-10.2) mg/dL Total Bilirubin (0.2-1.3) mg/dL AST (17-59) U/L ALT (4-49) U/L Total Protein (6.3-8.2) g/dL Albumin (3.5-5.0) g/dL Microbiology - Last 24 Hours (Table) 03/06/20 14:22 Blood Culture - Preliminary Blood No Growth after 72 hours Assessment and Plan Plan: Assessment: 1. Acute kidney injury secondary to ATN post-thrombectomy. And uric. Creatinine 4.99 today. Unknown baseline renal function. 2. Metabolic acidosis secondary to acute kidney injury maintained on bicarb drip. 3. Hypotension maintained on Levophed. 4. Status post left femoral thrombectomy, endarterectomy with patch angioplasty. Plan: Discontinue normal saline. Increase bicarb drip to 80 mL an hour. Wean Levophed. Start renal replacement therapy today due to worsening renal function and anuria. Plan for first hemodialysis treatment today and second treatment tomorrow.
[2020-03-10] MEDS: LACTULOSE 20 GM/30 ML CUP PO SCH (10:07)
[2020-03-10] MEDS ORDERED: PHYTONADIONE 10 MG in SODIUM CHLORIDE 0.9% 50 ML IVPB STA (10:09)
[2020-03-10 10:35] VITALS: BMI 26.7
--- NOTE | 2020-03-10 12:02 | P.PN ---
Subjective Progress Note Date: 03/10/20 Patient seen and examined in the ICU. Patient remains intubated and sedated. He is postop day 4 for open thrombectomy, endarterectomy and stenting of the left lower extremity. His heparin drip remains off due to a GI bleed. He does continue to have an NG tube and then is putting out maroon colored drainage. His INR this morning was 4.2, Dr. Kolb has ordered vitamin K and FFP prior to initiating a central line. He has worsening BUN 141, creatinine 0.99. The patient remains anuric, nephrology is recommending a temporary dialysis catheter and hemodialysis. Objective - Vital Signs Vital signs: Vital Signs Temp 97.7 F 03/10/20 08:00 Pulse 89 03/10/20 11:00 Resp 7 L 03/10/20 11:00 BP 88/55 03/10/20 11:00 Pulse Ox 96 03/10/20 11:00 Intake & Output 03/09/20 03/10/20 03/10/20 18:59 06:59 18:59 Intake Total 2033.493 2848.160 710.014 Output Total 403 0 0 Balance 6844.546 4563.160 710.014 Weight 69.1 kg 75.1 kg 75.1 kg Intake: IV 1900 1830 625 Arterial line flush 30 15 Dextrose 5% in Water 1, 500 600 310 000 ml @ 50 mls/hr IV . Q23H [facility] with Sodium Bicarb (1 Meq/ml) 150 ml Rx#:[id number] Sodium Chloride 0.9% 1, 1400 1200 300 000 ml @ 100 mls/hr IV . Q10H [facility] Rx#:[id number] Intake, IV Titration 73.493 1018.160 85.014 Amount Norepinephrine 4 mg In 39.097 35.014 Sodium Chloride 0.9% 250 ml @ 0.05 MCG/KG/MIN 13. 164 mls/hr IV .[id number] [facility] Rx#:[id number] Phytonadione 10 mg In 50 Sodium Chloride 0.9% 50 ml @ 100 mls/hr IVPB ONCE STA Rx#:[id number] Sodium Chloride 0.9% 1, 900 000 ml @ 999 mls/hr IV . Q1H1M ONE Rx#:[id number] fentaNYL (PF) 1,000 mcg 73.493 79.063 In Sodium Chloride 0.9% 80 ml @ Per Protocol IV . Q0M [facility] Rx#:[id number] Other 60 Output: Gastric Drainage 400 Urine 3 0 0 Other: Voiding Method Indwelling Catheter Indwelling Catheter Indwelling Catheter # Bowel Movements 2 ABP, PAP, CO, CI - Last Documented Arterial Blood Pressure 91/42 - Exam General appearance: Thin and frail. Sedated and intubated. HET: Head is normocephalic and atraumatic. Neck: Supple. Heart: S1 S2. Regular rate and rhythm. Lungs: Diminshed Abdomen: Firm, Distended, with decreased bowel sounds. Extremities: BiLateral groin incision sites well approximated with staple, weepingwith clear/yellow fluid, no active bleeding. The left lower extremity foot cool to touch, decreased capillary refill, pale. Unable to obtain DP doppler signal. A monophasic Doppler signal was obtained on the left PT. The right DP and PT with a biphasic Doppler signal. Right lower extremity warm to touch with good capillary refill. Left lower extremity fasciotomy site with dressing that is clean dry and intact. Able to bend the patient's left lower extremity at the knee. Neurological: Intubated and sedated. - Labs CBC & Chem 7: 03/10/20 03:30 03/10/20 03:30 Labs: Abnormal Lab Results - Last 24 Hours (Table) 03/09/20 03/09/20 03/09/20 Range/Units 12:05 16:38 19:57 RBC (4.30-5.90) m/uL Hgb (13.0-17.5) gm/dL Hct (39.0-53.0) % MCV (80.0-100.0) fL Plt Count (150-450) k/uL Lymphocytes # (Manual) (1.0-4.8) k/uL Macrocytosis PT (9.0-12.0) sec INR (<1.2) ABG pCO2 (35-45) mmHg ABG pO2 (83-108) mmHg ABG HCO3 (21-25) mmol/L Chloride (98-107) mmol/L Carbon Dioxide (22-30) mmol/L BUN (9-20) mg/dL Creatinine (0.66-1.25) mg/dL POC Glucose (mg/dL) 74 L 65 L 73 L (75-99) mg/dL Calcium (8.4-10.2) mg/dL Total Bilirubin (0.2-1.3) mg/dL AST (17-59) U/L ALT (4-49) U/L Total Protein (6.3-8.2) g/dL Albumin (3.5-5.0) g/dL 03/10/20 03/10/20 03/10/20 Range/Units 03:30 03:30 03:30 RBC 2.67 L (4.30-5.90) m/uL Hgb 9.3 L (13.0-17.5) gm/dL Hct 29.1 L (39.0-53.0) % MCV 109.0 H (80.0-100.0) fL Plt Count 51 L (150-450) k/uL Lymphocytes # (Manual) 0.41 L (1.0-4.8) k/uL Macrocytosis Marked A PT 41.5 H (9.0-12.0) sec INR 4.2 H (<1.2) ABG pCO2 (35-45) mmHg ABG pO2 (83-108) mmHg ABG HCO3 (21-25) mmol/L Chloride 113 H (98-107) mmol/L Carbon Dioxide 18 L (22-30) mmol/L BUN 41 H (9-20) mg/dL Creatinine 4.99 H (0.66-1.25) mg/dL POC Glucose (mg/dL) (75-99) mg/dL Calcium 6.6 L (8.4-10.2) mg/dL Total Bilirubin 7.8 H (0.2-1.3) mg/dL AST 1232 H (17-59) U/L ALT 557 H (4-49) U/L Total Protein 3.9 L (6.3-8.2) g/dL Albumin 1.9 L (3.5-5.0) g/dL 03/10/20 Range/Units 05:02 RBC (4.30-5.90) m/uL Hgb (13.0-17.5) gm/dL Hct (39.0-53.0) % MCV (80.0-100.0) fL Plt Count (150-450) k/uL Lymphocytes # (Manual) (1.0-4.8) k/uL Macrocytosis PT (9.0-12.0) sec INR (<1.2) ABG pCO2 32 L (35-45) mmHg ABG pO2 80 L (83-108) mmHg ABG HCO3 18 L (21-25) mmol/L Chloride (98-107) mmol/L Carbon Dioxide (22-30) mmol/L BUN (9-20) mg/dL Creatinine (0.66-1.25) mg/dL POC Glucose (mg/dL) (75-99) mg/dL Calcium (8.4-10.2) mg/dL Total Bilirubin (0.2-1.3) mg/dL AST (17-59) U/L ALT (4-49) U/L Total Protein (6.3-8.2) g/dL Albumin (3.5-5.0) g/dL Microbiology - Last 24 Hours (Table) 03/06/20 14:22 Blood Culture - Preliminary Blood No Growth after 72 hours Assessment and Plan Assessment: 1. Postop day 4 for a left femoral cutdown an open thrombectomy, left femoral endarterectomy of the common, superficial and deep femoral arteries with patch angioplasty. Compartment left lower extremity fasciotomy. Right femoral cutdown with open thrombectomy of the right iliac and femoral artery 2. Gricelda to be 3 acute ischemia left lower extremity 3. Chronic left lower extremity arterial disease 4. Metabolic acidosis 5. Acute kidney injury secondary to ATN, anuric 6. Alcoholic liver disease 7. Pancreatitis 8. Thrombocytopenia 9. Hypertension 10. Hyperlipidemia 11. ETOH use 12. Tobacco abuse Plan: Dr. Copeland to discuss with patient's brother CODE STATUS as well as very poor prognosis overall. Depending on conversation, it is a possibility of a temporary femoral dialysis catheter placement either today or tomorrow at [facility]. IF temporary dialysis catheter placed, hemodialysis per nephrology recommendations. Continue daily dressing changes to left fasciotomy site. Continue to hold heparin drip. Continue medical management and ICU care. The above dictated assessment and findings were discussed with Dr. Copeland. The impression and plan of care have been directed as dictated.
[2020-03-10 12:22] VITALS: TEMP 97.9
[2020-03-10 12:52] LABS: Glucose,Whole Blood 77 mg/dL (75-99)
[2020-03-10 13:23] LABS: Albumin 2.93 g/dL (3.80-4.90)
[2020-03-10 16:04] VITALS: BP 96/55
[2020-03-10 16:13] LABS: Glucose,Whole Blood 92 mg/dL (75-99)
[2020-03-10] MEDS ORDERED: MORPHINE SULFATE 2 MG/ML SYRINGE IV PRN (17:09)
[2020-03-10] MEDS ORDERED: ATROPINE OPHTH SOLN 1% 5ML BTL SUBLINGUAL PRN (17:09)
[2020-03-10] MEDS ORDERED: MORPHINE SULFATE 4 MG/ML SYRINGE IV PRN (17:09)
[2020-03-10] MEDS ORDERED: SCOPOLAMINE 1.5MG/72HR PATCH TRANSDERM SCH (17:15)
[2020-03-10] MEDS ORDERED: MORPHINE SULFATE (100 MG/2 ML) 100 MG in SODIUM CHLORIDE 0.9% 100 ML IV SCH (17:30)
[2020-03-10 18:15] VITALS: PULSE 93
--- NOTE | 2020-03-10 20:40 | DS ---
DISCHARGE SUMMARY DATE OF SERVICE: 03/10/2020 Acute liver failure, renal failure, acute on chronic anemia, metabolic acidosis, lactic acidosis, hepatic renal failure, pancreatitis. The patient did not respond to treatment, status post acute vascular occlusion of the left leg. The family does not want renal dialysis and patient is not responding. Patient was made comfort care in ICU by family tonight. I expect him to pass away shortly. MMIRIS / CHELA: [id number] /
[2020-03-10 22:29] VITALS: RESP 6
--- NOTE | 2020-03-11 15:24 | CDI ---
Documentation Clarification Form Date: 03/11/20 From: Yaneli Tripp CCS Phone: If you have a question about this query, please contact Brenda Gonzalez, Accounting Advisory Services Manager at [phone] between 8am and 5pm. Admit Date: 03/06/20 Discharge Date:03/10/20 Patient Name: Abhi Márquez Visit Number: [id number] ATTENTION: The Clinical Documentation Specialists (CDI) and [facility] Coding Staff appreciate your assistance in clarifying documentation. Please respond to the clarification below the line at the bottom and electronically sign. The CDI & [facility] Coding staff will review the response and follow-up if needed. Please note: Queries are made part of the Legal Health Record. If you have any questions, please contact the author of this message via ITS. Dear Dr. Fitch, The patient presented with the following acute liver failure, metabolic acidosis, acute renal failure, acute pancreatitis and lower extremity arterial occlusion. PNs document: Severe sepsis with multiorgan failure including liver pancreatitis renal hemopoietic system gastrointestinal History/Risk Factors: ATN, GI bleed, Acute liver failure, Acute pancreatitis, Cirrhosis Clinical Indicators: Multi organ failure WBC: 9.9, 8.2, 6.8 Lactic acid: 15.3, 16.1, 10.2 Blood cultures: No growth after 96 hours Vitals signs on admission: BP 141/80, RR 24, CA 125, T 96.9, O2 Sat 100 Other Clinical Indicators: Treatment: IV Levophed (03/10), Rocephin 1 gm IVPB , Zosyn 3.375 gm IVPB Q 8 H In your professional opinion, please clarify if these findings signify one of the following conditions, whether the condition is POA, and cause, if known: Condition Sepsis ruled out Sepsis is postoperative complication Severe Sepsis POA Severe Sepsis not POA Septic Shock Other, please specify Unable to determine SIRS Criteria (2 or more of the following may indicate SIRS): -Temperature < 96.8F (36C) or > 101.0F (38.3C) -Heart Rate > 90 bpm -Respiratory Rate > 20 breaths/min or PaCO2 < 32 mmHg -White Blood Cell Count > 12,000 or < 4,000 cells/mm3 or > 10% bands -Lactate >2.0 mmol/L (>4.0 is equivalent to septic shock) MTDD
--- NOTE | 2020-03-11 15:33 | CDI ---
Documentation Clarification Form Date: 03/11/20 From: Yaneli Tripp CCS Phone: If you have a question about this query, please contact Brenda Gonzalez, Fruit Farmer at [phone] between 8am and 5pm. Admit Date: 03/06/20 Discharge Date:03/10/20 Patient Name: Abhi Márquez Visit Number: [id number] ATTENTION: The Clinical Documentation Specialists (CDI) and [facility] Coding Staff appreciate your assistance in clarifying documentation. Please respond to the clarification below the line at the bottom and electronically sign. The CDI & [facility] Coding staff will review the response and follow-up if needed. Please note: Queries are made part of the Legal Health Record. If you have any questions, please contact the author of this message via ITS. Dear Dr. Fitch, Anemia is documented in the Consult (03/06), PNs, DS. PN 03/08 documents: Anemia with hemoglobin was 16, went down to 8.9,'s, to 10.1, to 9.1 this morning. Consult 03/07 documents: Anemia with positive stool for occult blood History/Risk Factors: GI bleed, Pancreatitis, Post Op open thrombectomy (EBL 200), Liver failure Clinical indicators: Anemia Hemoglobin: 8.9, 9.0, 9.8 Hematocrit: 28.4, 28.2, 30.4 Treatment: Transfusion FFP, Platelets In order to capture the severity of condition, please clarify the type of anemia and etiology if known:. Acute blood loss anemia Acute on chronic blood loss anemia Chronic blood loss anemia Iron deficiency anemia Nutritional anemia Anemia of chronic kidney disease Unable to determine Other, please specify MTDD
--- NOTE | 2020-03-11 15:47 | CDI ---
Documentation Clarification Form Date: 03/11/20 From: Yaneli Tripp CCS Phone: If you have a question about this query, please contact Brenda Gonzalez, Mechanical Energy Engineer at [phone] between 8am and 5pm. Admit Date: 03/06/20 Discharge Date:03/10/20 Patient Name: Abhi Márquez Visit Number: [id number] ATTENTION: The Clinical Documentation Specialists (CDI) and [facility] Coding Staff appreciate your assistance in clarifying documentation. Please respond to the clarification below the line at the bottom and electronically sign. The CDI & [facility] Coding staff will review the response and follow-up if needed. Please note: Queries are made part of the Legal Health Record. If you have any questions, please contact the author of this message via ITS. Dear Dr. Fitch, Patient has been described as thin, cachetic, underweight. History/Risk Factors: Alcoholism, Liver failure, Dehydration, Pancreatitis, ATN Clinical Indicators: Thin, cachetic, underweight Patients weight is: 57.5 kg Patients height is: 5 ft 6 in Calculated BMI is: 20.5 Albumin: 3.8, 3.2, 2.3, 1.9 Total Protein: 5.8, 5.2, 4.2, 3.9 Treatments: Enteral nutrition Dietary Consult: 03/07, 03/09, 03/10 In order to capture the severity of condition associated with patient BMI of 20.5, a clinical diagnosis needs to be documented by the physician. Please clarify: Cachexia Underweight Malnutrition Mild Moderate Severe Other Unable to determine MTDD
--- NOTE | 2020-03-12 09:38 | PN ---
PROGRESS NOTE ADDENDUM: Sepsis due to possible pancreatitis and acute blood loss secondary to surgery. There is liable to be acute blood-loss anemia and he his moderate to severe malnutrition secondary to alcoholism. MMIRIS / DANIAN: [id number] /
== END 2020-03-10 22:22 | disposition expired | DRG 853 ==
LOC: EC 11:13 → 2SICU 12:37
PROVIDERS: ADMIT Family Medicine; ATTEND Family Medicine
DX: A41.9 Sepsis, unspecified organism (principal); N17.0 Acute kidney failure with tubular necrosis; J96.01 Acute respiratory failure with hypoxia; G93.41 Metabolic encephalopathy; E43 Unspecified severe protein-calorie malnutrition; K85.20 Alcohol induced acute pancreatitis without necrosis or infection; K29.01 Acute gastritis with bleeding; J90 Pleural effusion, not elsewhere classified; I74.3 Embolism and thrombosis of arteries of the lower extremities; R64 Cachexia; I47.2 Ventricular tachycardia; E87.4 Mixed disorder of acid-base balance; D68.4 Acquired coagulation factor deficiency; K76.6 Portal hypertension; D62 Acute posthemorrhagic anemia; J98.11 Atelectasis; F10.230 Alcohol dependence with withdrawal, uncomplicated; K86.1 Other chronic pancreatitis; R65.20 Severe sepsis without septic shock; K70.40 Alcoholic hepatic failure without coma; D69.6 Thrombocytopenia, unspecified; K76.0 Fatty (change of) liver, not elsewhere classified; K70.10 Alcoholic hepatitis without ascites; I95.9 Hypotension, unspecified; K70.30 Alcoholic cirrhosis of liver without ascites; Z51.5 Encounter for palliative care; Z66 Do not resuscitate; I70.1 Atherosclerosis of renal artery; I70.202 Unspecified atherosclerosis of native arteries of extremities, left leg; R40.2362 Coma scale, best motor response, obeys commands, at arrival to emergency department; R40.2142 Coma scale, eyes open, spontaneous, at arrival to emergency department; R40.2252 Coma scale, best verbal response, oriented, at arrival to emergency department; I10 Essential (primary) hypertension; E78.5 Hyperlipidemia, unspecified; E86.0 Dehydration; K21.9 Gastro-esophageal reflux disease without esophagitis; G62.9 Polyneuropathy, unspecified; F17.210 Nicotine dependence, cigarettes, uncomplicated; R31.9 Hematuria, unspecified; E78.00 Pure hypercholesterolemia, unspecified; K31.89 Other diseases of stomach and duodenum; E16.2 Hypoglycemia, unspecified; E87.70 Fluid overload, unspecified; Z68.20 Body mass index [BMI] 20.0-20.9, adult; Z71.3 Dietary counseling and surveillance; Z79.899 Other long term (current) drug therapy; Z98.42 Cataract extraction status, left eye; Z98.41 Cataract extraction status, right eye; Z98.890 Other specified postprocedural states; Z82.49 Family history of ischemic heart disease and other diseases of the circulatory system
CPT/HCPCS: 36415; 37221; 37222; 37226; 71045; 76705; 76770; 80053; 80074; 81001; 82103; 82105; 82140; 82150; 82271; 82310; 82390; 82550; 82607; 82728; 82805; 83036; 83516; 83540; 83550; 83605; 83690; 83735; 84165; 84484; 85025; 85027; 85610; 85730; 86038; 86376; 86706; 86850; 86900; 86901; 87040; 87086; 87340; 88304; 88311; 93005; 94002; 94003; 96361; 96365; 96366; 96375; 96376; 99291